=== PATIENT | male | born 1955 | race Caucasian/White ===

== ENCOUNTER 2018-07-14 11:30 | Emergency (ER) | payer SELFPAY ==
[~2018-07-14] VITALS: Ht 188 cm; Wt 119.7 kg
[~2018-07-14 11:30] MED LIST: ASPI-875 PO; BUDE6HFA IH; CEFA-4 PO; CRAN450T9 PO; HCT25T PO; HYDR-34 PO; MELO-195 PO; OMEG-12 PO; ORPH100T PO; PRCD5U PO; TADA2.5T PO
--- OUTSIDE RECORDS SUMMARY | 2018-07-14 11:35 | XMS REPORT | Continuity of Care Document ---
Author Author [facility] Organization [facility] Address Unknown Phone Unavailable Care Team Providers Care Head Of Merchandise Buying Name Role Phone PENNIE CARTWRIGHT MD PP Insurance Providers Payer Name Policy Number Subscriber Name Relationship Self Pay Mao Wheatley Howie 01 Self / Same As Patient Advance Directives Directive Response Recorded Date Advance Directives N 09/08/12 12:16pm Health Care Power of Scudding Inspector N 09/08/12 12:16pm Organ Donor N 09/08/12 12:16pm Problems No Known Problems or Medical conditions. Family History History Response Recorded Date/Time Hx Family Cancer Y STOMACH CANCER (GRANDMOTHER) 01/26/12 6:28pm Hx Family Breast Cancer Y SISTER 01/26/12 6:28pm Hx Family Hypertension Y MOTHER 01/26/12 6:28pm Social History History Response Recorded Date/Time Alcohol Use Rarely Uses 09/08/12 12:16pm Recreational Drug Use N 09/08/12 12:16pm Allergies, Adverse Reactions, Alerts Allergen Type Severity Reaction Last Updated Penicillins Allergy Unknown 12/01/10 Medications Medication Dose Units Route Sig Qty Days Promethazine HCl/Codeine (Phenergan W/Codeine Syrup) 0 PO Q4H 120 Aspirin (Heard Aspirin) 81 Mg PO Cranberry Fruit (Cranberry) 400 Mg PO Tadalafil (Cialis) 20 Mg PO PRN Tadalafil (Cialis) 5 Mg PO Meloxicam 1 Each PO DAILY Budesonide/Formoterol Fumarate (Symbicort 160-4.5 Mcg Inhaler) 2 Puff IH BID Orphenadrine Citrate (Norflex) 100 Mg PO BID Hydrochlorothiazide 1 Each PO DAILY Cefadroxil Hydrate 1 Each PO BID Acetaminophen/Hydrocodone Bitart (Hydrocodone-Apap 7.5-325 Mg Tb) 1 Each PO Q6HR PRN [place]-3/Dha/Epa/Fish Oil (Fish Oil 1,000 Mg Ec Softgel) 2 Each PO Response Recorded Date/Time Status not known Unknown Results Test Date Result Interp. Ref. Range Alanine Aminotransferase (ALT/SGPT) January 27, 2012 7:50am 30 U/L N 30-65 Albumin January 27, 2012 7:50am 3.2 G/DL L 3.4-5.0 Alkaline Phosphatase January 27, 2012 7:50am 81 U/L N 50-136 Aspartate Amino Transf (AST/SGOT) January 27, 2012 7:50am 16 U/L N 15-37 BUN/Creatinine Ratio January 27, 2012 7:50am 11 - Blood Urea Nitrogen January 27, 2012 7:50am 12 MG/DL N 7-18 Calcium Level January 27, 2012 7:50am 8.2 MG/DL L 8.5-10.1 Carbon Dioxide Level January 27, 2012 7:50am 28 MMOL/L N 21-32 Chloride Level January 27, 2012 7:50am 104 MMOL/L N 101-110 Creatinine January 27, 2012 7:50am 1.1 MG/DL N 0.6-1.3 Glucose Level January 27, 2012 7:50am 115 MG/DL H 74-106 Hematocrit January 27, 2012 7:50am 44 % N 40-54 Hemoglobin January 27, 2012 7:50am 15.2 G/DL N 13.3-17.7 Mean Corpuscular Hemoglobin January 27, 2012 7:50am 33 PG N 25-34 Mean Corpuscular Hemoglobin Concent January 27, 2012 7:50am 35 G/DL N 32-36 Mean Corpuscular Volume January 27, 2012 7:50am 94 FL N 80-99 Mean Platelet Volume January 27, 2012 7:50am 9.9 FL N 7.4-10.4 Platelet Count January 27, 2012 7:50am 137 10^3/uL N 130-400 Potassium Level January 27, 2012 7:50am 3.6 MMOL/L N 3.6-5.0 Red Blood Count January 27, 2012 7:50am 4.63 10^6/uL N 4.35-5.85 Red Cell Distribution Width January 27, 2012 7:50am 12.8 % N 10.0-14.5 Sodium Level January 27, 2012 7:50am 137 MMOL/L N 135-145 Thyroid Stimulating Hormone (TSH) January 26, 2012 12:53pm 1.28 UIU/ML N 0.34-5.60 Total Bilirubin January 27, 2012 7:50am 0.7 MG/DL N 0.0-1.0 Total Protein January 27, 2012 7:50am 6.5 G/DL N 6.4-8.2 White Blood Count January 27, 2012 7:50am 6.9 10^3/uL N 4.3-11.0 Lab Scanned Report October 31, 2010 10:34am LAB Reports [id number] - Estimat Glomerular Filtration Rate January 26, 2012 12:53pm > 60 - Procedures Procedure Code Date LESION REMOVE COLONOSCOPY 71767 12/19/10 UPPER GI ENDOSCOPY BIOPSY 32544 12/19/10 Encounters Encounter Location Date/Time Registered Emergency Room [facility] 09/08/12 12:13pm Departed Emergency Room [facility] 02/18/12 11:05am [facility]charged [facility] 01/26/12 5:00pm
--- OUTSIDE RECORDS SUMMARY | 2018-07-14 11:35 | XMS REPORT | Continuity of Care Document ---
Author Organization Unknown Address Unknown Allergies Active Description Code Type Severity Reaction Onset Reported/Identified Relationship to Patient Clinical Status Yes Penicillins [id number] Drug Allergy Unknown N/A 12/01/2010 Medications There is no data. Problems Date Dx Coded Attending Type Code Diagnosis Diagnosed By 01/30/2014 Ot 599.70 01/30/2014 Ot 564.00 01/30/2014 Ot 599.70 01/30/2014 Ot V81.5 Procedures There is no data. Results There is no data. Encounters ACCT No. Visit Date/Time Discharge Status Pt. Type Provider Facility Loc./Unit Complaint [id number] 09/18/2012 11:31:00 09/18/2012 23:59:59 CLS Outpatient [id number] 09/08/2012 12:13:00 09/08/2012 14:33:00 DIS Emergency [id number] 07/14/2018 11:31:00 ACT Emergency NATALIYA CONDON, KATHIA Ribeiro [facility] ER HIGH BP [id number] 07/02/2009 14:49:00 Document Registration [id number] 06/29/2009 08:56:00 Document Registration
[2018-07-14] MEDS ORDERED: CLOP75TA69 PO (11:59)
[2018-07-14] MEDS ORDERED: METF-397 PO (11:59)
--- NOTE | 2018-07-14 12:02 | ED Neurological Problem ---
General Chief Complaint: Cardiac/General Problems Stated Complaint: HIGH BP Nursing Triage Note: PT PRESENTS TO ED WITH COMPLAINTS OF HYPERTENSION AND GENERALIZED "FOGGY" FEELING SINCE 0800 THIS AM WHEN HE GOT TO WORK. Nursing Sepsis Screen: No Definite Risk Source: patient, spouse Exam Limitations: no limitations History of Present Illness Date Seen by Provider: July 14, 2018 Time Seen by Provider: 11:45 Initial Comments Patient presents to ER by private conveyance with chief complaint of being at work around 8:00 this morning he started to feel little off balance and had to hold onto the wall as he was walking. This lasted for less than an hour. He says that these symptoms were reminiscent of when he had a TIA with right-sided weakness and prominent dysphasia and right facial droop. At the time he was switched from aspirin to Plavix and his symptoms completely resolved without residual effect. The patient was worked up thoroughly at [place], [place]. He denies a history of heart disease and he did have ultrasounds of his carotid and heart. He denies a history of atrial fibrillation and is not on blood thinners. While at work he checked his blood sugar and it was 140 and his blood pressure was elevated about 150 systolic. He uses hydrochlorothiazide and his blood pressures usually normal. No chest pain nausea weakness or syncope but he did feel very odd like he was going through a tunnel. Sensation has mostly passe d at this point. He still feels a little off balance. He did say he took his medicines today and about 6 out of 7 days a week. Borderline diabetic on metformin and smokes 1 pack cigarettes per day. Allergies and Home Medications Allergies Coded Allergies: Penicillins (Verified Allergy, Unknown, 12/01/10) Home Medications Budesonide/Formoterol Fumarate 10.2 Gm Hfa.aer.ad, 2 PUFF IH BID, (Reported) Cefadroxil Hydrate 500 Mg Capsule, 1 EACH PO BID, (Reported) Clopidogrel Bisulfate 75 Mg Tablet, 75 MG PO DAILY, (Reported) Hydrochlorothiazide 25 Mg Tablet, 1 EACH PO DAILY, (Reported) Hydrocodone Bit/Acetaminophen 1 Each Tablet, 1 EACH PO Q6HR PRN, (Reported) Meloxicam 15 Mg Tablet, 1 EACH PO DAILY, (Reported) Orphenadrine Citrate 100 Mg Tablet.sa, 100 MG PO BID, (Reported) Promethazine/Codeine 5 Ml Syrp, 0 PO Q4H 5 - 10 ML Prescribed by: JEANNIE VALENTE on 02/18/12 1310 Tadalafil 2.5 Mg Tablet, 20 MG PO PRN, (Reported) Patient Home Medication List Home Medication List Reviewed: Yes Review of Systems Review of Systems Constitutional: No chills, No diaphoresis Eyes: Denies Blindness, Denies Blurred Vision, Denies Drainage Ears, Nose, Mouth, Throat: denies ear pain, denies ear discharge Respiratory: No cough, No hemoptysis Cardiovascular: No chest pain, No palpitations Gastrointestinal: No abdominal pain, No constipation, No diarrhea, No nausea Genitourinary: No discharge, No dysuria Past Xwznusa-Tnhjmu-Vrannj Hx Patient Social History Alcohol Use: Rarely Uses Recreational Drug Use: No Smoking Status: Current Everyday Smoker Type Used: Cigarettes Recent Foreign Travel: No Contact w/Someone Who Travel: No Recent Infectious Disease Expo: No Recent Hopitalizations: Yes (1992 RT LEG FX) Physical Abuse: No Sexual Abuse: No Mistreated: No Fear: No Seasonal Allergies Seasonal Allergies: No Past Medical History Surgeries: Yes (BACK-LUMBAR, R ANKLE, GANGLION CYST) Appendectomy Respiratory: Yes (POST-OP, 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 oz. 119.921748lb; BMI Method:Stated General Appearance: WD/WN, no apparent distress HEENT: PERRL/EOMI, normal ENT inspection, TMs normal, pharynx normal Neck: non-tender, full range of motion, supple, normal inspection Respiratory: chest non-tender, lungs clear, normal breath sounds, no respiratory distress, no accessory muscle use Cardiovascular: normal peripheral pulses, regular rate, rhythm, no edema Peripheral Pulses: 2+ Radial Pulses (R), 2+ Radial Pulses (L) Neurologic/Psychiatric: alert, normal mood/affect, oriented x 3 Crainal Nerves: normal hearing, normal speech, PERRL Motor/Sensory: no motor deficit, no sensory deficit, no pronator drift Skin: normal color, warm/dry Stroke Onset of Symptoms Date of Onset of Symptoms: July 14, 2018 Time of Symptom Onset: 08:00 Onset of Symptoms: Yes NIH Stroke Scale Assessment Select: Initial Level of Consciousness: 0=Alert (0), Level of Consciousness- Questions: 0=Answers both month/age (0), LOC Commands: 0=Performs both tasks (0), Gaze: Normal (0), Visual [place]: 0=No visual loss (0), Facial Movement (Facial Paresis): 0=Normal symmetrical mnt (0), Motor Function-Arms Right: 0=No drift (0), Motor Function-Arms Left: 0=No drift (0), Motor Function-Legs Right: 0=No drift (0), Motor Function-Legs Left: 0=No drift (0), Limb Ataxia: 0=Absent (0), Sensory: 0=Normal:no loss (0), Best Language: 0=No aphasia (0), Dysarthria: 0=Normal (0), Extinction & Inattention: 0=No abnormality (0), Total: 0 Stroke Thrombolytic Exclusion Age 18 or Over: Yes Acute intenal hemorrhage: No History of CVA: No Uncontrolled Coagulation Defec: No Intracranial Hemorrhage: No Severe Hypertension: No GI or Bleed: No Subarachnoid Hemorrhage: No Intracranial Neoplasm/Aneurysm: No Oral Anticoagulants: No Surgery or Trauma: No Puncture of Non-Compressible V: No Recent CPR: No Diabetic Hemorrhagic Retinopat: No Organ Biopsy: No Recent Obstetric Delivery: No Glucose: No (140) Significant Hepatic Dysfunctio: No NIH Stoke Scale >22: No Bacterial Endocarditis: No Pericarditis: No Improving Symptoms: Yes Platelets: No IV - TPa Received IV - TPa Procedure Performed?: No (outside the window, symptoms are improving.) Progress/Results/Core Measures Results/Orders Lab Results Laboratory Tests Test 07/14/18 11:40 Range/Units White Blood Count 8.8 4.3-11.0 10^3/uL Red Blood Count 4.86 4.35-5.85 10^6/uL Hemoglobin 16.2 13.3-17.7 G/DL Hematocrit 46 40-54 % Mean Corpuscular Volume 94 80-99 FL Mean Corpuscular Hemoglobin 33 25-34 PG Mean Corpuscular Hemoglobin Concent 35 32-36 G/DL Red Cell Distribution Width 12.8 10.0-14.5 % Platelet Count 122 L 130-400 10^3/uL Mean Platelet Volume 11.4 H 7.4-10.4 FL Neutrophils (%) (Auto) 66 42-75 % Lymphocytes (%) (Auto) 22 12-44 % Monocytes (%) (Auto) 7 0-12 % Eosinophils (%) (Auto) 5 0-10 % Basophils (%) (Auto) 1 0-10 % Neutrophils # (Auto) 5.8 1.8-7.8 X 10^3 Lymphocytes # (Auto) 2.0 1.0-4.0 X 10^3 Monocytes # (Auto) 0.6 0.0-1.0 X 10^3 Eosinophils # (Auto) 0.4 H 0.0-0.3 10^3/uL Basophils # (Auto) 0.1 0.0-0.1 10^3/uL Prothrombin Time 12.9 12.2-14.7 SEC INR Comment 0.9 0.8-1.4 Activated Partial Thromboplast Time 27 24-35 SEC D-Dimer 0.66 H 0.00-0.49 UG/ML Sodium Level 140 135-145 MMOL/L Potassium Level 4.0 3.6-5.0 MMOL/L Chloride Level 104 98-107 MMOL/L Carbon Dioxide Level 21 21-32 MMOL/L Anion Gap 15 H 5-14 MMOL/L Blood Urea Nitrogen 17 7-18 MG/DL Creatinine 1.07 0.60-1.30 MG/DL Estimat Glomerular Filtration Rate > 60 BUN/Creatinine Ratio 16 Glucose Level 145 H 70-105 MG/DL Calcium Level 9.3 8.5-10.1 MG/DL Corrected Calcium 9.3 8.5-10.1 MG/DL Total Bilirubin 1.2 H 0.1-1.0 MG/DL Aspartate Amino Transf (AST/SGOT) 18 5-34 U/L Alanine Aminotransferase (ALT/SGPT) 16 0-55 U/L Alkaline Phosphatase 78 40-136 U/L Troponin I < 0.028 <0.028 NG/ML Total Protein 7.1 6.4-8.2 GM/DL Albumin 4.0 3.2-4.5 GM/DL My Orders Orders - KATHIA AN Cbc With Automated Diff (07/14/18 11:54) Protime With Inr (07/14/18 11:54) Partial Thromboplastin Time (07/14/18 11:54) Comprehensive Metabolic Panel (07/14/18 11:54) Fibrin Degradation Products (07/14/18 11:54) Troponin I (07/14/18 11:54) Ua Culture If Indicated (07/14/18 11:54) Chest 1 View, Ap/Pa Only (07/14/18 11:54) Ekg Tracing (07/14/18 11:54) Nothing By Mouth (07/14/18 Dinner) Ed Iv/Invasive Line Start (07/14/18 11:54) Vital Signs Stroke Patient Q15M (07/14/18 11:54) Ct Head Wo-R/O Stroke (07/14/18 11:54) O2 (07/14/18 11:54) Monitor-Rhythm Ecg Trace Only (07/14/18 11:54) Dysphagia Screening Tool (07/14/18 11:54) Lipid Panel (07/15/18 06:00) Vital Signs/I&O 07/14/18 11:46 Temp 98.4 Pulse 72 Resp 16 B/P (MAP) 154/95 (114) Pulse Ox 94 Blood Pressure Mean: 114 Progress Progress Note : Time: 12:02 Progress Note NIH is 0. Patient's symptoms are similar to his previous TIA. Would still get a CT, EKG. Noticed that his pulse does drop a beat every third to fourth beat but no murmur heard on auscultation of the heart. No other systemic symptoms. Based on his historical blood sugar at work will just get a repeat glucose off the CMP. Symptoms have pretty much resolved at this point. We will discussed an outpatient workup with primary care. Since [facility] [place] [facility] may have more of that information to go off of. There is no further inpatient workup necessary at this time. We've given him strict return precautions. Initial ECG Impression Date: July 14, 2018 Initial ECG Impression Time: 12:07 Initial ECG Rate: 65 Initial ECG Rhythm: Normal Sinus Initial ECG Intervals: TX (164) Initial ECG Impression: Normal, Nonspecific Changes Initial ECG Comparisson: Unchanged Comment PACs. Right bundle branch block. Sinus rhythm no ST elevation or depression significantly. Diagnostic Imaging Diagonstic Imaging: Xray Plain Films/CT/US/NM/MRI: chest (one view.) Comments [facility] [place] [place] NAME: ANTONIO WHEATLEY [facility] REC#: [id number] PT STATUS: REG ER : 1955 PHYSICIAN: KATHIA AN MD ADMIT DATE: 07/14/18/ER Draft Date of Exam:07/14/18 CHEST 1 VIEW, AP/PA ONLY INDICATION: Hypertension, abnormal generalized foggy feeling since earlier in the day.. TECHNIQUE: Single view chest 12:11 PM. CORRELATION STUDY: 09/08/2012 FINDINGS: Heart size enlarged. The mediastinum is prominent somewhat accentuated by patient positioning. Vasculature also appears slightly prominent. Lung [place]ch[place] are somewhat hyperinflated but overall appear generally clear. Increased density over the left lateral superior chest is likely summation shadows. IMPRESSION: 1. Cardiac enlargement with borderline vasculature. Mediastinum also appears to be somewhat more prominent from prior study. While this may be owing to technique, however increasing size of the thoracic aorta and or underlying adenopathy/mass is not excluded. Short-term followup two-view chest imaging and/or CT imaging of the chest recommended. Dictated on workstation # [id number] Dict: 07/14/18 1219 Trans: 07/14/18 1227 PATY [id number] Interpreted by: MONTANA MOLINA DO Electronically signed by: Reviewed: Reviewed by Me Diagonstic Imaging: CT (noncontrast) Plain Films/CT/US/NM/MRI: head Comments [facility] [place], [place] NAME: ANTONIO WHEATLEY [facility] REC#: [id number] PT STATUS: REG ER : 1955 PHYSICIAN: KATHIA AN MD ADMIT DATE: 07/14/18/ER Draft Date of Exam:07/14/18 CT HEAD WO-R/O STROKE PROCEDURE: CT head wo r/o stroke. TECHNIQUE: Multiple contiguous axial images were obtained through the brain without the use of intravenous contrast. Auto Exposure Controls were utilized during the CT exam to meet ALARA standards for radiation dose reduction. INDICATION: Hypertension with generalized foggy feeling. Evaluate for stroke. COMPARISON: Comparison is made with a prior study from September 08, 2012. FINDINGS: Mild age-appropriate global volume loss is present. There are no CT findings of acute hemorrhage. There is no mass effect or shift. There is no hydrocephalus. There is a stable low-density focus along the right anterior aspect of the insula, unchanged from the prior examination and likely reflecting a prominent perivascular space. There is no territorial loss of betts-white differentiation evident or abnormal low density within the basal ganglia or rachel. There is no abnormal extra-axial fluid collection. The basilar cisterns are patent. The mastoids are clear. There is a mucus retention cyst in both of the maxillary sinuses and moderate scattered mucosal thickening throughout the ethmoids. Orbital contents are unremarkable. There is no acute calvarial abnormality. IMPRESSION: 1. No CT evidence of interval change compared to the prior examination. No acute intracranial abnormality demonstrated. There are no findings of hemorrhage, mass effect, hydrocephalus, or evidence of territorial loss of betts-white differentiation. Dictated on workstation # [id number] Dict: 07/14/18 1229 Trans: 07/14/18 1236 [id number] Interpreted by: FRANK OCONNELL MD Electronically signed by: Reviewed: Reviewed by Me Departure Impression Primary Impression: Balance problem Additional Impression: General ill feeling Disposition: 01 HOME, SELF-CARE Condition: Stable Departure-Patient Inst. Decision time for Depature: 13:29 Referrals: PENNIE CARTWRIGHT MD (PCP/Family) Primary Care Physician Patient Instructions: Transient Ischemic Attack (DC) Add. Discharge Instructions: I don't know if your symptoms represent another transient ischemic attack or mini stroke however if you begin to experience symptoms of slurring her speech, facial droop, weakness or other worrisome symptoms then we would encourage you to come back to the nearest ER for reevaluation. Follow-up with Dr. Cartwright, primary care by calling his office tomorrow and requesting an appointment for further workup to discover what might be occurring. All discharge instructions reviewed with patient and/or family. Voiced understanding. Copy Copies To 1: PENNIE CARTWRIGHT MD, TITUS J July 14, 2018 12:02
[2018-07-14 12:05] LABS: BASOPHILS # (AUTO) 0.1 10^3/uL (0.0-0.1); BASOPHILS % (AUTO) 1 % (0-10); EOSINOPHILS # (AUTO) 0.4 10^3/uL (0.0-0.3); EOSINOPHILS % (AUTO) 5 % (0-10); HEMATOCRIT 46 % (40-54); HEMOGLOBIN 16.2 G/DL (13.3-17.7); LYMPHOCYTES % (AUTO) 22 % (12-44); MEAN CORPUSCULAR HEMOGLOBIN 33 PG (25-34); MEAN CORPUSCULAR HGB CONC 35 G/DL (32-36); MEAN CORPUSCULAR VOLUME 94 FL (80-99); MEAN PLATELET VOLUME 11.4 FL (7.4-10.4); MONOCYTES # (AUTO) 0.6 X 10^3 (0.0-1.0); MONOCYTES % (AUTO) 7 % (0-12); NEUTROPHILS # (AUTO) 5.8 X 10^3 (1.8-7.8); NEUTROPHILS % (AUTO) 66 % (42-75); PLATELET COUNT 122 10^3/uL (130-400); RED CELL DISTRIBUTION WIDTH 12.8 % (10.0-14.5); WHITE BLOOD COUNT 8.8 10^3/uL (4.3-11.0)
[2018-07-14 12:10] LABS: FIBRIN DEGRADATION PRODUCTS 0.66 UG/ML (0.00-0.49); INR 0.9 (0.8-1.4); PROTHROMBIN TIME PATIENT 12.9 SEC (12.2-14.7)
[2018-07-14 12:16] LABS: ALANINE AMINOTRANSFERASE 16 U/L (0-55); ALKALINE PHOSPHATASE 78 U/L (40-136); BILIRUBIN,TOTAL 1.2 MG/DL (0.1-1.0); BUN/CREATININE RATIO 16; CALCIUM 9.3 MG/DL (8.5-10.1); CARBON DIOXIDE 21 MMOL/L (21-32); CHLORIDE 104 MMOL/L (98-107); CREATININE SERUM 1.07 MG/DL (0.60-1.30); GFR ESTIMATED > 60; GLUCOSE 145 MG/DL (70-105); SODIUM 140 MMOL/L (135-145); TOTAL PROTEIN 7.1 GM/DL (6.4-8.2)
--- NOTE | 2018-07-14 12:28 | Diagnostic Imaging Report ---
INDICATION: Hypertension, abnormal generalized foggy feeling since earlier in the day.. TECHNIQUE: Single view chest 12:11 PM. CORRELATION STUDY: 09/08/2012 FINDINGS: Heart size enlarged. The mediastinum is prominent somewhat accentuated by patient positioning. Vasculature also appears slightly prominent. Lung serna are somewhat hyperinflated but overall appear generally clear. Increased density over the left lateral superior chest is likely summation shadows. IMPRESSION: 1. Cardiac enlargement with borderline vasculature. Mediastinum also appears to be somewhat more prominent from prior study. While this may be owing to technique, however increasing size of the thoracic aorta and or underlying adenopathy/mass is not excluded. Short-term followup two-view chest imaging and/or CT imaging of the chest recommended. Dictated by: Dictated on workstation # [id number]
--- NOTE | 2018-07-14 12:36 | Diagnostic Imaging Report ---
PROCEDURE: CT head wo r/o stroke. TECHNIQUE: Multiple contiguous axial images were obtained through the brain without the use of intravenous contrast. Auto Exposure Controls were utilized during the CT exam to meet ALARA standards for radiation dose reduction. INDICATION: Hypertension with generalized foggy feeling. Evaluate for stroke. COMPARISON: Comparison is made with a prior study from September 08, 2012. FINDINGS: Mild age-appropriate global volume loss is present. There are no CT findings of acute hemorrhage. There is no mass effect or shift. There is no hydrocephalus. There is a stable low-density focus along the right anterior aspect of the insula, unchanged from the prior examination and likely reflecting a prominent perivascular space. There is no territorial loss of betts-white differentiation evident or abnormal low density within the basal ganglia or rachel. There is no abnormal extra-axial fluid collection. The basilar cisterns are patent. The mastoids are clear. There is a mucus retention cyst in both of the maxillary sinuses and moderate scattered mucosal thickening throughout the ethmoids. Orbital contents are unremarkable. There is no acute calvarial abnormality. IMPRESSION: 1. No CT evidence of interval change compared to the prior examination. No acute intracranial abnormality demonstrated. There are no findings of hemorrhage, mass effect, hydrocephalus, or evidence of territorial loss of betts-white differentiation. Dictated by: Dictated on workstation # [id number]
[2018-07-14 13:41] VITALS: BP 126/79
== END 2018-07-14 13:41 | disposition home or self-care (01) ==
LOC: EDUNIT# 11:30 → ER 11:31
DX: I10 Essential (primary) hypertension (principal); R26.89 Other abnormalities of gait and mobility; E11.9 Type 2 diabetes mellitus without complications; F17.210 Nicotine dependence, cigarettes, uncomplicated; Z86.73 Personal history of transient ischemic attack (TIA), and cerebral infarction without residual deficits; Z87.440 Personal history of urinary (tract) infections; Z87.442 Personal history of urinary calculi; Z88.0 Allergy status to penicillin; Z79.02 Long term (current) use of antithrombotics/antiplatelets; Z90.49 Acquired absence of other specified parts of digestive tract; Z86.711 Personal history of pulmonary embolism
CPT/HCPCS: 36415; 70450; 71045; 80053; 84484; 85025; 85379; 85610; 85730; 93041

== ENCOUNTER → 2018-09-11 | Outpatient (CLI) | payer SELFPAY ==
[~2018-09-11] MED LIST changes: +CLOP75TA69 PO; +METF-397 PO
--- NOTE | 2018-09-11 14:02 | Diagnostic Imaging Report ---
PROCEDURE: US right lower extremity venous. TECHNIQUE: Multiple real-time grayscale images were obtained over the right lower extremity in various projections. Additional spectral analysis and color Doppler duplex images were also obtained. INDICATION: Right lower extremity swelling. FINDINGS: There is no evidence of right lower extremity DVT. The right lower extremity deep venous system shows normal compressibility with normal response to augmentation and Valsalva. No fluid collection or mass is seen. IMPRESSION: No evidence of right lower extremity DVT. Dictated by: Dictated on workstation # [id number]
== END ==
LOC: RAD 13:18
PROVIDERS: ATTEND Nurse Practitioner Family
DX: M79.89 Other specified soft tissue disorders (principal)

== ENCOUNTER → 2018-11-19 | Outpatient (CLI) | payer MEDICARE ==
[~2018-11-19] MED LIST changes: +CATHETER FLUSH 10 ML SYR IV PRN; +REGADENOSON 0.4 MG/5 ML SYR (LEXISCAN) IV ONE
[2018-11-19 13:15] VITALS: BP 163/84
[2018-11-19 13:18] VITALS: BP 142/86
--- NOTE | 2018-11-20 18:15 | STRESS TEST ---
DATE OF SERVICE: 11/19/2018 RESTING AND POST REGADENOSON TECHNETIUM-99M TETROFOSMIN SPECT CT IMAGING ORDERING PHYSICIAN: Onelia Rosado MD, IMELDA, FACP, FACC. OTHER PHYSICIAN: Robert Medina MD CLINICAL DIAGNOSIS: Right bundle branch block, tobacco use, hyperlipidemia, hypertension, and diabetes. Baseline images were carried out after injection of 10.67 mCi of technetium-99m Tetrofosmin. This was followed by 0.4 mg regadenoson and 30.4 mCi of technetium-99m Tetrofosmin for stress imaging. The electrocardiogram showed sinus rhythm with right bundle branch block at baseline. The electrocardiogram did not change significantly with the regadenoson infusion. The patient noted shortness of breath following regadenoson which resolved in a few minutes. Review of images at rest and following stress indicates a predominantly fixed basal inferior perfusion defect. Gated images show basal inferior hypokinesis to akinesis. Left ventricular ejection fraction is calculated to be 48%. Left ventricular end diastolic volume is 135 mL. TID is absent (1.02). CONCLUSIONS: 1. This study is indicative of a basal inferior wall myocardial infarction with a small amount of keli-infarct ischemia. 2. Basal inferior hypokinesis to akinesis. 3. Left ventricular ejection fraction is calculated to be 48%. 4. Mild to moderate cardiomegaly. Job ID: [id number] DocumentID: [id number] Dictated Date: 11/20/2018 13:02:30 Economics Consultant Date: 11/20/2018 18:14:37 Dictated By: ONELIA ROSADO MD, IMELDA, FACP, FACC,
== END ==
LOC: CARD 11:41
PROVIDERS: ATTEND Internal Medicine Cardiovascular Disease
DX: I51.7 Cardiomegaly (principal); I25.2 Old myocardial infarction; E11.9 Type 2 diabetes mellitus without complications; I10 Essential (primary) hypertension; E78.5 Hyperlipidemia, unspecified; I45.10 Unspecified right bundle-branch block; Z72.0 Tobacco use; Z86.79 Personal history of other diseases of the circulatory system
CPT/HCPCS: 78452; 93017

== ENCOUNTER 2018-12-03 10:08 | Day surgery (SDC) | payer MEDICARE ==
[2018-12-03] VITALS (10 sets, daily range): BP systolic 111–144; BP diastolic 66–84
[~2018-12-03] VITALS: Ht 188 cm; Wt 119.8 kg
[~2018-12-03 10:08] MED LIST changes: -CATHETER FLUSH 10 ML SYR IV PRN; -REGADENOSON 0.4 MG/5 ML SYR (LEXISCAN) IV ONE
[2018-12-03] MEDS ORDERED: LIDOCAINE 1% INJ 20 ML 20 ML VIAL ONE (10:14)
[2018-12-03] MEDS ORDERED: HEParin (CATH LAB) 2,000 ML IV ONE (10:14)
[2018-12-03] MEDS ORDERED: NS IV 1000 ML 1,000 ML ONE (10:14)
[2018-12-03] MEDS ORDERED: NS IV 1000 ML 1,000 ML IV SCH ×2 (10:15→12:53)
[2018-12-03 10:33] LABS: HEMOGLOBIN 16.8 G/DL (13.3-17.7); MEAN PLATELET VOLUME 9.9 FL (7.4-10.4); RED CELL DISTRIBUTION WIDTH 12.6 % (10.0-14.5); WHITE BLOOD COUNT 7.8 10^3/uL (4.3-11.0)
[2018-12-03 10:48] LABS: INR 0.9 (0.8-1.4); PROTHROMBIN TIME PATIENT 12.8 SEC (12.2-14.7)
[2018-12-03 10:56] LABS: ALANINE AMINOTRANSFERASE 21 U/L (0-55); ALBUMIN 4.2 GM/DL (3.2-4.5); ALKALINE PHOSPHATASE 84 U/L (40-136); BILIRUBIN,TOTAL 1.3 MG/DL (0.1-1.0); BUN/CREATININE RATIO 17; CALCIUM 9.5 MG/DL (8.5-10.1); CARBON DIOXIDE 26 MMOL/L (21-32); CHLORIDE 102 MMOL/L (98-107); CHOLESTEROL 143 MG/DL (< 200); CREATININE SERUM 0.98 MG/DL (0.60-1.30); GFR ESTIMATED > 60; GLUCOSE 110 MG/DL (70-105); HDL CHOLESTEROL 38 MG/DL (40-60); POTASSIUM 3.3 MMOL/L (3.6-5.0); SODIUM 141 MMOL/L (135-145); TOTAL PROTEIN 7.7 GM/DL (6.4-8.2); TRIGLYCERIDES 117 MG/DL (<150); VLDL CHOLESTEROL 23 MG/DL (5-40)
[2018-12-03] MEDS ORDERED: HYDR50TA3 PO (11:16)
[2018-12-03] MEDS ORDERED: HYDR-34 PO (11:16)
[2018-12-03] MEDS ORDERED: MELO15TA39 PO (11:16)
[2018-12-03] MEDS ORDERED: METF-478 PO (11:17)
[2018-12-03] MEDS ORDERED: VERA180T11 PO (11:17)
[2018-12-03] MEDS ORDERED: ATOR40TA PO (11:17)
[2018-12-03] MEDS ORDERED: ASPI-586 PO (11:17)
[2018-12-03] MEDS ORDERED: CYCL10TA9 PO (11:17)
[2018-12-03] MEDS ORDERED: IBUP-2055 PO (11:18)
--- NOTE | 2018-12-03 11:19 | NUR ---
SPOKE WITH PT (HE HAD HIS BOTTLES) WELL CALLING [facility] TO COMPLETE THE MED REC. PT WAS ABLE TO TELL ME HOW/WHEN HE TAKES ALL HIS MEDICATIONS. THE FOLLOWING DATES ARE FROM HIS BOTTLES; 08-16-2018 CYCLOBENZAPRINE# 60 09-30-2018 HCTZ #90/90DS 10-25-2018 ATORVASTATIN #60/60DS 10-25-2018 METFORMIN #30/30DS 11-04-2018 HYDROCODONE #60 11-04-2018 VERAPAMIL #30/30DS 11-13-2018 MELOXICAM #60 12-01-2018 CLOPIDOGREL #30/30DS OTC MEDS: ASPIRIN 81M DAILY IBUPROFEN 200M TABS Q 6 H PRN
[2018-12-03] MEDS ORDERED: MIDAZOLAM 5 MG/5 ML (VERSED) VIAL ONE (11:52)
[2018-12-03] MEDS ORDERED: fentaNYL INJECTION 100 MCG/2 ML AMP ONE (11:52)
[2018-12-03] MEDS ORDERED: diphenhydrAMINE 50 MG/ML INJ (BENADRYL) ONE (11:52)
--- NOTE | 2018-12-03 11:58 | Cardiac Procedure Note-CS/ASA ---
Pre-Procedure Note Pre-Op Procedure Note H&P Reviewed The H&P was reviewed, patient examined and no changes noted. Date H&P Reviewed: Dec 03, 2018 Time H&P Reviewed: 11:58 Conscious Sedation Pre-Proced Time 11:58 ASA Score 3 For ASA 3 and 4: Consider anesthesia and medical clearance. Also, for patients with a history of failed moderate sedation consider anesthesia. Airway Lungs Heart ASA score ASA 1: a normal healthy patient ASA 2: a patient with a mild systemic disease (mid diabetes, controlled hypertension, obesity ASA 3: a patient with a severe systemic disease that limits activity (angina, COPD, prior Myocardial infarction) ASA 4: a patient with an incapacitating disease that is a constant threat to life (CHF, renal failure) ASA 5: a moribund patient not expected to survive 24 hrs. (ruptured aneurysm) ASA 6: a declared brain- patient whose organs are being harvested. For emergent operations, add the letter E after the classification Mallampati Classification Grade 2 Sedation Plan Analgesia, Amnesia, Plan communicated to team members, Discussed options with patient/fam, Discussed risks with patient/fam The patient is an appropriate candidate to undergo the planned procedure, sedation, and anesthesia. The patient immediately re-assessed prior to indication. ZACHERY REIS MD FACP FAC CCDS Dec 03, 2018 11:58
--- NOTE | 2018-12-03 12:57 | Discharge Inst-Cardiology ---
Discharge Inst-Cardiac Discharge Medications Continued Medications: Aspirin (Aspir 81) 81 Mg Tablet.dr 81 MG PO DAILY, TAB Atorvastatin Calcium (Lipitor) 40 Mg Tablet 40 MG PO DAILY, TAB Clopidogrel Bisulfate (Plavix) 75 Mg Tablet 75 MG PO DAILY, TAB Cyclobenzaprine HCl (Cyclobenzaprine HCl) 10 Mg Tablet 10 MG PO BID PRN for MUSCLE SPASMS, TAB Hydrocodone Bit/Acetaminophen (Lortab 7.5 Mg Tablet) 1 Ea Tablet 1 EA PO Q8H PRN for PAIN-MODERATE, TAB Meloxicam (Meloxicam) 15 Mg Tablet 15 MG PO DAILY, TAB Verapamil HCl (Verapamil ER) 180 Mg Tablet.er 180 MG PO DAILY, TAB Discontinued Medications: Hydrochlorothiazide (Hydrochlorothiazide) 50 Mg Tablet 50 MG PO DAILY, TAB Ibuprofen (Ibuprofen) 200 Mg Tablet 400 MG PO Q6H PRN for PAIN-MILD, TAB Metformin HCl (Metformin HCl ER) 500 Mg Tab.er.24 500 MG PO DAILY, TAB Patient Instructions Patient Instructions: Hold METFORMIN until the morning of 12/06/18; then resume previous home dose Orders-Post D/C & Referrals Pneu Vac Indicated: Yes ZACHERY REIS MD FACP FAC CCDS Dec 03, 2018 12:57
--- NOTE | 2018-12-03 12:58 | Discharge Inst-Post CATH ---
Discharge Inst-CATH/EP Post Cardiac Cath/EP D/C Inst Follow Up/Plan F/u with Dr Rosado in 2 weeks ACTIVITY * Go Home directly and rest. * Limit activity of the leg (or wrist if it was used) for 7 days including aerobics, swimming, jogging, bicycling, etc. * Restrict stair-climbing for 7 days if possible, if not, climb up with your n on-cath leg, then bring together on the same step. * Avoid lifting, pushing, pulling or excessive movement of the affected ex tremity for 7 days. * Customary sexual activity may be resumed after 2 days-use caution not to use a position that strains or causes pain to the affected extremity. * No driving for 24 hours. * NO SMOKING. * Avoid straining for bowel movements for 7 days. * Gentle walking on level ground is allowed. * Returning to work will depend on the type of procedure and the results. Your doctor will discuss this with you. CALL YOUR DOCTOR FOR ANY OF THE FOLLOWING: *If bleeding from the puncture site occurs- Apply gentle pressure to site with clean cloth and call your doctor or EMS. * If a knot or lump forms under the skin, increases in size, or causes pain. * If bruising appears to be worsening or moving further down your leg instead of disappearing. * Temperature above 101 F. CARE OF YOUR GROIN INCISION; * Bruising or purple discoloration of the skin near the puncture site is common. * You may shower only, no bathtub bathing for 5 days. Be careful to avoid slipping as your leg may feel stiff. * If a closure device was used on your femoral artery, please see the attached guide regarding care of the device and your leg. * Leave dressing on FOR 24 hours. CARE OF YOUR WRIST INCISION; * Bruising or purple discoloration of the skin near the puncture site is common. * You may shower. * DO NOT submerge wrist. * Leave dressing on FOR 24 hours. ZACHERY ROSADO MD FAC FAC CCDS Dec 03, 2018 12:58
[2018-12-03] MEDS ORDERED: PATIENT MAY USE OWN MEDS, ALL PO SCH (13:00)
[2018-12-03] MEDS ORDERED: KCL 20 MEQ TAB (K-DUR) PO NR (13:45)
--- NOTE | 2018-12-03 15:32 | CARDIAC CATHETERIZATION ---
DATE OF SERVICE: 12/03/2018 The patient is a 63-year-old man who is known to have multiple coronary artery disease risk factors. He recently underwent myocardial perfusion imaging for coronary risk stratification prior to orthopedic surgery. 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 Cardiac catheterization was recommended. Informed consent was obtained. DESCRIPTION OF PROCEDURE: He was brought to the cardiac catheterization laboratory in a fasting state. Right groin was prepared and draped in the usual sterile fashion. Lidocaine 1% was used for local anesthesia. Modified Seldinger technique was used to advance a 5-Czech sheath in right femoral artery, 5-Czech JL4 catheter for left coronary angiography, 5-Czech JR4 catheter for right coronary angiography, 5-Czech pigtail catheter was used for left heart catheterization and left ventricular angiography. Pigtail was pulled back to the aortic arch and aortic arch angiography was performed. Pigtail was removed. Angiography of the right femoral artery had been carried out through the sheath at the beginning of the procedure. At the end of the procedure, Mynx was used to achieve hemostasis. He tolerated the procedure well. HEMODYNAMICS: Left ventricular end-diastolic pressure following coronary angiography was 8 mmHg. There was no significant pressure gradient on pullback across the aortic valve. Ascending aortic pressure was 122/65 with a mean of 88 mmHg. CORONARY ANGIOGRAPHY: Coronary calcification is seen. Left main coronary artery does not exhibit significant disease. Left anterior descending artery has diffuse mild plaques. Left circumflex artery has diffuse mild plaque. The terminal obtuse marginal branch of the left circumflex artery has 50% distal stenosis. Left to right collaterals seemed to the dominant right coronary artery. The right coronary artery is occluded at its ostium. Bridging collaterals were seen to the distal right coronary artery. LEFT VENTRICULAR ANGIOGRAPHY: Left ventricular angiography was carried out in the right anterior oblique projection. Global left ventricular systolic function is well preserved, ejection fraction of 45% to 50%. There is posterobasal dyskinesis. AORTIC ARCH ANGIOGRAPHY: Aortic arch angiography indicates mild generalized enlargement of the thoracic aorta without any distinct aneurysm. No dissection is seen. The neck arteries, to the extent visualized, do not exhibit significant stenoses. CONCLUSIONS: 1. Coronary artery disease primarily consisting of chronic total occlusion of ostial/proximal right coronary artery with antegrade, bridging collaterals and left to right collaterals. 2. Posterobasal dyskinesis. 3. Well preserved global left ventricular systolic function with ejection fraction approximately 45% to 50%. Based on results of the study, it appears appropriate to continue a conservative approach. His cardiac risk for noncardiac surgery is estimated to be intermediate. We discussed that his risk with him. He understands and wishes to proceed with necessary surgery. Job ID: [id number] DocumentID: [id number] Dictated Date: 12/03/2018 12:45:36 Internal Communications Specialist Date: 12/03/2018 15:31:52 Dictated By: ZACHERY REIS MD, MA, FACP, FACC,
== END 2018-12-03 16:15 | disposition home or self-care (01) ==
LOC: CATH 10:08 → SDC 12:56 → CATH 16:15
PROVIDERS: ATTEND Internal Medicine Cardiovascular Disease
DX: I25.10 Atherosclerotic heart disease of native coronary artery without angina pectoris (principal); R94.39 Abnormal result of other cardiovascular function study; I45.10 Unspecified right bundle-branch block; E11.9 Type 2 diabetes mellitus without complications; I10 Essential (primary) hypertension; E78.5 Hyperlipidemia, unspecified; G89.29 Other chronic pain; M25.552 Pain in left hip; I63.9 Cerebral infarction, unspecified; G81.91 Hemiplegia, unspecified affecting right dominant side; F17.210 Nicotine dependence, cigarettes, uncomplicated; Z88.0 Allergy status to penicillin; Z79.82 Long term (current) use of aspirin; Z79.02 Long term (current) use of antithrombotics/antiplatelets; Z80.9 Family history of malignant neoplasm, unspecified; Z82.49 Family history of ischemic heart disease and other diseases of the circulatory system; Z79.84 Long term (current) use of oral hypoglycemic drugs
CPT/HCPCS: 36221; 36415; 80053; 80061; 85027; 85610; 85730; 87081; 93458

== ENCOUNTER → 2019-07-25 | Outpatient (CLI) | payer MEDICARE ==
[~2019-07-25] MED LIST changes: +ASPI-586 PO; +ATOR40TA PO; +CYCL10TA9 PO; +HYDR50TA3 PO; +IBUP-2473 PO; +MELO15TA39 PO; +METF-478 PO; +VERA180T11 PO
== END ==
LOC: LABNPT 08:56
PROVIDERS: ATTEND Orthopaedic Surgery
DX: Z11.59 Encounter for screening for other viral diseases (principal); M16.12 Unilateral primary osteoarthritis, left hip
CPT/HCPCS: 87635

== ENCOUNTER → 2019-11-17 | Outpatient (CLI) | payer MEDICARE | LOC: LABNPT 08:03 | PROVIDERS: ATTEND Emergency Medicine | DX: Z01.812 Encounter for preprocedural laboratory examination (principal); Z20.828 Contact with and (suspected) exposure to other viral communicable diseases | CPT/HCPCS: 87635 ==

== ENCOUNTER 2020-12-13 10:41 | Emergency (ER) | payer MEDICARE ==
[~2020-12-13] VITALS: Ht 187 cm; Wt 122.2 kg
[~2020-12-13 10:41] MED LIST changes: -HYDR50TA3 PO; +HYDR50TA6 PO; -VERA180T11 PO; +VERA180T25 PO
--- OUTSIDE RECORDS SUMMARY | 2020-12-13 10:47 | XMS REPORT | Clinical Summary ---
Author Author [facility] Organization [facility] Address Unknown Phone Unavailable Care Team Providers Care Merchandise Associate Name Role Phone PCP Unavailable Allergies Not on File Medications Not on file Active Problems Not on file Social History Date Tobacco Use Types Packs/Day Years Used Never Assessed Sex Assigned at Date Recorded Not on file Last Filed Vital Signs Not on file Plan of Treatment Not on file Results Not on filefrom Last 3 Months
[2020-12-13] MEDS ORDERED: LACTATED RINGERS 1,000 ML IV ONE (11:15)
[2020-12-13 11:20] LABS: BASOPHILS # (AUTO) 0.1 10^3/uL (0.0-0.1); BASOPHILS % (AUTO) 1 % (0-10); EOSINOPHILS # (AUTO) 0.2 10^3/uL (0.0-0.3); EOSINOPHILS % (AUTO) 2 % (0-10); HEMATOCRIT 48 % (40-54); HEMOGLOBIN 15.9 g/dL (13.3-17.7); LYMPHOCYTES # (AUTO) 1.8 10^3/uL (1.0-4.0); LYMPHOCYTES % (AUTO) 18 % (12-44); MEAN CORPUSCULAR HEMOGLOBIN 32 pg (25-34); MEAN CORPUSCULAR HGB CONC 33 g/dL (32-36); MEAN CORPUSCULAR VOLUME 96 fL (80-99); MEAN PLATELET VOLUME 9.5 fL (9.0-12.2); MONOCYTES # (AUTO) 0.5 10^3/uL (0.0-1.0); MONOCYTES % (AUTO) 5 % (0-12); NEUTROPHILS # (AUTO) 7.6 10^3/uL (1.8-7.8); NEUTROPHILS % (AUTO) 75 % (42-75); PLATELET COUNT 221 10^3/uL (130-400); WHITE BLOOD COUNT 10.2 10^3/uL (4.3-11.0)
--- NOTE | 2020-12-13 11:21 | ED Neurological Problem ---
General Chief Complaint: Dizziness/Syncope Stated Complaint: UNABLE TO KEEP BALANCE Nursing Triage Note: PT PRESENTS TO ED VIA POV FROM HOME WITH COMPLAINTS OF FEELING OFF BALANCE SINCE 299 WHEN HE GOT UP TO USE THE RESTROOM. PT DENIES NAUSEA OR FEELING LIKE THE ROOM IS SPINNING. PT REPORTS, " I JUST FEEL OFF BALANCE." PT REPORTS HE HAS DECREASED R HAND MEDICAL REGISTRAR STRENGTH FROM A PREVIOUS NERVE INJURY. Source: patient Exam Limitations: no limitations History of Present Illness Date Seen by Provider: Dec 13, 2020 Time Seen by Provider: 10:56 Initial Comments 65-year-old male with past medical history of CVA, borderline diabetes, hypertension, hyperlipidemia coming in due to balance issues. He says he woke up Sunday in the middle the night to go to the bathroom and felt himself falling over in the dark. Did not fall or hit his head. Did not pass out. Since then he has had disequilibrium with standing. 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 Is not have any symptoms of vertigo, does have chronic tinnitus which is unchanged. Denies any weakness, numbness, vision changes, headache, neck pain, or any other concerns. Does take aspirin and Plavix daily and took them this morning. Allergies and Home Medications Allergies Coded Allergies: Penicillins (Verified Allergy, Unknown, 12/01/10) Patient Home Medication List Home Medication List Reviewed: Yes Aspirin (Aspir 81) 81 Mg Tablet.dr, 81 MG PO DAILY, (Reported) Entered as Reported by: KRISTOPHER NORIEGA on 12/03/18 111 Atorvastatin Calcium (Lipitor) 40 Mg Tablet, 40 MG PO DAILY, (Reported) Entered as Reported by: KRISTOPHER NORIEGA on 12/03/18 111 Clopidogrel Bisulfate (Plavix) 75 Mg Tablet, 75 MG PO DAILY, (Reported) Entered as Reported by: JA ALRDICH on 07/14/18 1159 Cyclobenzaprine HCl (Cyclobenzaprine HCl) 10 Mg Tablet, 10 MG PO BID PRN for MUSCLE SPASMS, (Reported) Entered as Reported by: KRISTOPHER NORIEGA on 12/03/18 111 Hydrocodone Bit/Acetaminophen (Lortab 7.5 Mg Tablet) 1 Ea Tablet, 1 EA PO Q8H PRN for PAIN-MODERATE, (Reported) Entered as Reported by: KRISTOPHER NORIEGA on 12/03/18 1116 Meloxicam (Meloxicam) 15 Mg Tablet, 15 MG PO DAILY, (Reported) Entered as Reported by: KRISTOPHER NORIEGA on 12/03/18 111 Verapamil HCl (Verapamil ER) 180 Mg Tablet.er, 180 MG PO DAILY, (Reported) Entered as Reported by: KRISTOPHER NORIEGA on 12/03/18 1117 Review of Systems Review of Systems Constitutional: No chills, No fever Eyes: Denies Blurred Vision, Denies Photophobia Ears, Nose, Mouth, Throat: denies ear pain Respiratory: No cough, No short of breath Cardiovascular: No chest pain, No syncope Gastrointestinal: No abdominal pain, No diarrhea, No nausea, No vomiting Genitourinary: no symptoms reported Musculoskeletal: No back pain, No joint pain Skin: no symptoms reported Psychiatric/Neurological: Denies Headache, Denies Numbness, Denies Weakness Endocrine: No Symptoms Reported Hematologic/Lymphatic: No Symptoms Reported All Other Systems Reviewed Negative Unless Noted: Yes Past Ifwyhon-Lljahn-Wcndom Hx Patient Social History Tobacco Use?: Yes Tobacco type used: Cigarettes Smoking Status: Current Everyday Smoker Smokeless Tobacco Frequency: Current Everyday User Substance use?: No Alcohol Use?: Yes Alcohol type: Beer Alcohol Frequency: Rarely Pt feels they are or have been: No Immunizations Up To Date First/Initial COVID19 Vaccinat: 03/05/20 Second COVID19 Vaccination Jeyson: 03/25/20 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 Seasonal Allergies Seasonal Allergies: No Past Medical History Surgery/Hospitalization HX: SX: L HIP PMH: TIA, STROKE, CAD Surgeries: Yes (BACK-LUMBAR, R ANKLE, GANGLION CYST) Appendectomy Respiratory: Yes (POST-OP, IMMOBILITY WITH CAST ON LEG) Pulmonary Embolism Cardiac: Yes Hypertension Neurological: Yes TIA Reproductive Disorders: No Bladder Infection, Kidney Stones Gastrointestinal: No Musculoskeletal: Yes Chronic Back Pain Endocrine: Yes Diabetes, Non-Insulin dep Cancer: No Psychosocial: No Integumentary: No Blood Disorders: No Physical Exam Vital Signs Vital Signs - First Documented 12/13/20 10:52 Temp 35.9 Pulse 65 Resp 18 B/P (MAP) 127/86 (100) Capillary Refill : Less Than 3 Seconds Height, Weight, BMI Height: 6'2.00" Weight: 264lbs. oz. 119.835316yc; 34.00 BMI Method:Stated General Appearance: WD/WN, no apparent distress HEENT: PERRL/EOMI, normal ENT inspection, TMs normal, pharynx normal Neck: non-tender, full range of motion, supple, normal inspection Respiratory: chest non-tender, lungs clear, normal breath sounds, no respiratory distress, no accessory muscle use Cardiovascular: regular rate, rhythm, no edema, no murmur Gastrointestinal: normal bowel sounds, non tender, soft; No distended, No gu arding, No rebound Back: normal inspection, no CVA tenderness, no vertebral tenderness Extremities: normal range of motion, non-tender, normal inspection, no pedal edema, no calf tenderness, normal capillary refill Neurologic/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, no motor/sensory deficits, alert, normal mood/affect, oriented x 3 Crainal Nerves: normal hearing, normal speech, PERRL Coordination/Gait: normal finger to nose, normal gait, negative Romberg's sign, other (Normal guaq-ok-ssej) Motor/Sensory: no motor deficit, no sensory deficit, no pronator drift Skin: normal color, warm/dry Lymphatic: no adenopathy Stroke Onset of Symptoms Date of Onset of Symptoms: Dec 11, 2020 Time of Symptom Onset: 06:00 Onset of Symptoms: Yes Symptoms onset unknown: No NIH Stroke Scale Assessment Gaze: Normal (0), Total: 0 Stroke Thrombolytic Exclusion Age 18 or Over: Yes Acute intenal hemorrhage: No History of CVA: No Uncontrolled Coagulation Defec: No Intracranial Hemorrhage: No Severe Hypertension: No GI or Bleed: No Subarachnoid Hemorrhage: No Intracranial Neoplasm/Aneurysm: No Oral Anticoagulants: No Surgery or Trauma: No Puncture of Non-Compressible V: No Recent CPR: No Diabetic Hemorrhagic Retinopat: No Organ Biopsy: No Recent Obstetric Delivery: No Glucose: No Significant Hepatic Dysfunctio: No NIH Stoke Scale >22: No Bacterial Endocarditis: No Pericarditis: No Improving Symptoms: Yes Platelets: No IV - TPa Received IV - TPa Procedure Performed?: No (Not a candidate as his NIH score is 0 and he had symptoms that started greater than 48 hours ago) Progress/Results/Core Measures Results/Orders Lab Results Laboratory Tests Test 12/13/20 11:14 Range/Units White Blood Count 10.2 4.3-11.0 10^3/uL Red Blood Count 4.95 4.30-5.52 10^6/uL Hemoglobin 15.9 13.3-17.7 g/dL Hematocrit 48 40-54 % Mean Corpuscular Volume 96 80-99 fL Mean Corpuscular Hemoglobin 32 25-34 pg Mean Corpuscular Hemoglobin Concent 33 32-36 g/dL Red Cell Distribution Width 11.9 10.0-14.5 % Platelet Count 221 130-400 10^3/uL Mean Platelet Volume 9.5 9.0-12.2 fL Immature Granulocyte % (Auto) 0 % Neutrophils (%) (Auto) 75 42-75 % Lymphocytes (%) (Auto) 18 12-44 % Monocytes (%) (Auto) 5 0-12 % Eosinophils (%) (Auto) 2 0-10 % Basophils (%) (Auto) 1 0-10 % Neutrophils # (Auto) 7.6 1.8-7.8 10^3/uL Lymphocytes # (Auto) 1.8 1.0-4.0 10^3/uL Monocytes # (Auto) 0.5 0.0-1.0 10^3/uL Eosinophils # (Auto) 0.2 0.0-0.3 10^3/uL Basophils # (Auto) 0.1 0.0-0.1 10^3/uL Immature Granulocyte # (Auto) 0.0 0.0-0.1 10^3/uL Prothrombin Time 13.6 12.2-14.7 SEC INR Comment 1.0 0.8-1.4 Activated Partial Thromboplast Time 27 24-35 SEC Sodium Level 138 135-145 MMOL/L Potassium Level 3.8 3.6-5.0 MMOL/L Chloride Level 102 98-107 MMOL/L Carbon Dioxide Level 24 21-32 MMOL/L Anion Gap 12 5-14 MMOL/L Blood Urea Nitrogen 17 7-18 MG/DL Creatinine 1.12 0.60-1.30 MG/DL Estimat Glomerular Filtration Rate 65 BUN/Creatinine Ratio 15 Glucose Level 133 H 70-105 MG/DL Calcium Level 9.6 8.5-10.1 MG/DL Corrected Calcium 9.6 8.5-10.1 MG/DL Total Bilirubin 1.2 H 0.1-1.0 MG/DL Aspartate Amino Transf (AST/SGOT) 19 5-34 U/L Alanine Aminotransferase (ALT/SGPT) 15 0-55 U/L Alkaline Phosphatase 69 40-136 U/L Troponin I < 0.028 <0.028 NG/ML Total Protein 7.2 6.4-8.2 GM/DL Albumin 4.0 3.2-4.5 GM/DL My Orders Orders - TRUDY RODRIGUEZ MD Cbc With Automated Diff (12/13/20 11:05) Protime With Inr (12/13/20 11:05) Partial Thromboplastin Time (12/13/20 11:05) Comprehensive Metabolic Panel (12/13/20 11:05) Troponin I (12/13/20 11:05) Ua Culture If Indicated (12/13/20 11:05) Chest 1 View, Ap/Pa Only (12/13/20 11:05) Ekg Tracing (12/13/20 11:05) Accucheck Stat ONCE (12/13/20 11:05) Ed Iv/Invasive Line Start (12/13/20 11:05) Vital Signs Stroke Patient Q15M (12/13/20 11:05) Ct Head Wo-R/O Stroke (12/13/20 11:05) O2 (12/13/20 11:05) Monitor-Rhythm Ecg Trace Only (12/13/20 11:05) Dysphagia Screening Tool (12/13/20 11:05) Lactated Ringers (Lr 1000 Ml Iv Solution (12/13/20 11:15) Vital Signs Stroke Patient Q15M (12/13/20 13:08) Dysphagia Screening Tool (12/13/20 13:08) Ct Angio Head/Neck (12/13/20 13:08) Mri Brain W/O Contrast (12/13/20 13:08) Iohexol Injection (Omnipaque 350 Mg/Ml 1 (12/13/20 13:45) Received Contrast (Hold Metformin- Contr (12/13/20 13:45) Sodium Chloride Flush (Catheter Flush Sy (12/13/20 13:45) Ns (Ivpb) (Sodium Chloride 0.9% Ivpb Bag (12/13/20 13:45) Medications Given in ED Current Medications Medications Dose Ordered Sig/[place] Route Start Time Stop Time Status Last Admin Dose Admin Iohexol 75 ml ONCE ONCE IV 12/13/20 13:45 12/13/20 13:46 DC 12/13/20 13:54 75 ML Lactated Ringer's 1,000 ml @ 500 mls/hr Q2H ONCE IV 12/13/20 11:15 12/13/20 13:14 DC 12/13/20 11:20 500 MLS/HR Sodium Chloride 10 ml NEEDED PRN IV 12/13/20 13:45 12/13/20 13:54 10 ML Sodium Chloride 100 ml ONCE ONCE IV 12/13/20 13:45 12/13/20 13:46 DC 12/13/20 13:54 80 ML Vital Signs/I&O 12/13/20 10:52 Temp 35.9 Pulse 65 Resp 18 B/P (MAP) 127/86 (100) Blood Pressure Mean: 100 Progress Progress Note : Progress Note 65-year-old male with above history coming in due to disequilibrium. ABCs were intact and vitals were stable on presentation. Symptoms have been ongoing for greater than 2 days. NIH scale today is 0. Even if he were to have a stroke, he has presented well out of any window for TPA. His tongue does appear dry and it is possible he is a little volume down. We will give him some fluids while we are working him up. Is not having any vertigo associated with this. CT head ordered without contrast which was negative for any acute findings. Called and discussed the case with the stroke neurologist at Dr. Noonan who recommended getting a CTA head and neck as well as an MRI of the brain. Both of these were ordered and were negative for any acute findings that would suggest his symptoms. 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 Possible he has some inner ear pathology that is causing his disequilibrium. I will have him follow-up with ENT here. He was then discharged home in stable condition with strict return precautions. Initial ECG Impression Date: Dec 13, 2020 Initial ECG Impression Time: 11:15 Initial ECG Rate: 66 Initial ECG Rhythm: Normal Sinus Comment QRS with a right bundle branch block, no significant ST elevations or T wave inversions Diagnostic Imaging Diagonstic Imaging: CT, MRI (brain) Plain Films/CT/US/NM/MRI: head [facility] [place] [place] NAME: ANTONIO WHEATLEY [facility] REC#: [id number] PT STATUS: REG ER : 1955 PHYSICIAN: TRUDY RODRIGUEZ MD ADMIT DATE: 12/13/20/ER Draft Date of Exam:12/13/20 CT HEAD WO-R/O STROKE PROCEDURE: CT head wo r/o stroke. TECHNIQUE: Multiple contiguous axial images were obtained through the brain without the use of intravenous contrast. Auto Exposure Controls were utilized during the CT exam to meet ALARA standards for radiation dose reduction. INDICATION: Dizziness. Balance difficulties. COMPARISON: Comparison is made with a prior study from 07/14/2018. FINDINGS: The ventricles are normal in size, shape, and position. There is no acute parenchymal hemorrhage, edema, or mass. There is no extra-axial mass or hemorrhage. There is no acute bony abnormality. IMPRESSION: No abnormality is seen with no change from 07/14/2018. Dictated on workstation # [id number] Dict: 12/13/20 1212 Trans: 12/13/20 1215 AS6 [id number] Interpreted by: DAVID ISLAS MD Electronically signed by: [facility] [place] NAME: ANTONIO WHEATLEY [facility] REC#: [id number] PT STATUS: REG ER : 1955 PHYSICIAN: TRUDY RODRIGUEZ MD ADMIT DATE: 12/13/20/ER Signed Date of Exam:12/13/20 MRI BRAIN W/O CONTRAST PROCEDURE: MR imaging of the brain without contrast. TECHNIQUE: Multiplanar, multisequence MR imaging of the brain was performed without contrast. INDICATION: Ill feeling. Feels intoxicated but is not. COMPARISON: CT head and CTA head and neck performed earlier the same date. FINDINGS: No acute ischemia, mass, or hemorrhage. Scattered T2 hyperintense signal is seen in the periventricular and subcortical white matter. The ventricles and cortical sulci are prominent. The basilar cisterns are symmetric and unremarkable. The sellar and suprasellar regions have a normal appearance. The brainstem and posterior fossa are unremarkable. Mild mucosal thickening is seen in the ethmoid sinuses. The mastoid air cells demonstrate normal signal characteristics. The globes and orbits are symmetric and unremarkable. The scalp and calvarium have a normal appearance. A partially visualized mass is seen in the left parotid gland measuring 2.8 x 2.3 cm. IMPRESSION: 1. No acute ischemia, mass, or hemorrhage. 2. Scattered chronic microvascular disease with generalized parenchymal volume loss. 3. Nonspecific partially visualized mass in the left parotid gland. Given the findings on the CTA head and neck performed the same date this is favored to represent a Warthin tumor. Consider ENT consultation to further evaluate. Dictated by: Dictated on workstation # [id number] Dict: 12/13/20 1357 Trans: 12/13/20 1414 [id number] Interpreted by: LISSET DAVENPORT DO Electronically signed by: LISSET DAVENPORT DO 12/13/20 1414 [facility] [place] NAME: ANTONIO WHEATLEY [facility] REC#: [id number] PT STATUS: REG ER : 1955 PHYSICIAN: TRUDY RODRIGUEZ MD ADMIT DATE: 12/13/20/ER Signed Date of Exam:12/13/20 CT ANGIO HEAD/NECK PROCEDURE: CT angiography of the head and CT angiography of the neck with and without contrast. TECHNIQUE: Contiguous noncontrast images were obtained from the skull base through the vertex. After intravenous contrast administration, helical CT angiography of the neck was performed. Source data was reformatted into 3D MIP projections. Delayed post contrast acquisition was also obtained. Auto Exposure Controls were utilized during the CT exam to meet ALARA standards for radiation dose reduction. INDICATION: Abnormal feeling. Feels intoxicated but is not. Concern for stroke. COMPARISON: CT head and MRI brain performed earlier the same date. FINDINGS: CTA Neck: The visualized portions of the aortic arch demonstrate no evidence of aneurysm or dissection. There is conventional branching pattern of the great vessels of the aorta. The brachiocephalic artery is normal in course and caliber. The right and left common carotid origins are unremarkable. The origin of the left subclavian artery is patent. The common carotid arteries and internal carotid arteries demonstrate a tortuous course. There is a moderate amount of atherosclerotic plaque in the right carotid bulb and proximal right internal carotid artery resulting in less than 50% stenosis. Small amount of atherosclerotic plaque is seen in the left carotid system. No evidence of dissection in the carotid systems. The external carotid arteries are patent and unremarkable. The left vertebral artery is dominant. The origin of the right vertebral artery is seen and is unremarkable. The origin of the left vertebral artery is off the aorta. There is no focal stenosis seen within the neck. There is no dissection. The vertebral arteries are well visualized to up to the level of the basilar artery. The osseous structures of the cervical spine are unremarkable. Bilateral parotid masses are seen, left greater than right. Multiple lesions are noted within the right parotid gland. Included views through the lung apices demonstrate no focal consolidation. CTA brain: Small amount of atherosclerotic plaque is seen in the [place] of the bilateral terminal internal carotid arteries without significant stenosis. No stenosis is seen in the bilateral anterior, middle, and posterior cerebral arteries. No evidence of aneurysm the [place]. In the posterior circulation, both of the vertebral arteries demonstrate normal opacification. Both the right and left PICA arteries are identified. The basilar artery is normal in course and caliber. The terminal branch vessels including the superior cerebellar arteries unremarkable. IMPRESSION: 1. No stenosis or aneurysm in the [place]. No evidence of large vessel occlusion. 2. Moderate amount of atherosclerotic plaque in the right carotid bulb and proximal right internal carotid artery resulting in less than 50% stenosis. Smaller amount of atherosclerotic plaque is seen in the left carotid bulb without significant stenosis. 3. Multiple bilateral parotid masses. 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 Consider ENT consultation to further evaluate. Dictated by: Dictated on workstation # [id number] Dict: 12/13/20 1403 Trans: 12/13/20 1418 [facility] [id number] Interpreted by: LISSET DAVENPORT DO Electronically signed by: LISSET DAVENPORT DO 12/13/20 1418 Departure Impression Primary Impression: Warthin tumor Additional Impression: Dysequilibrium Disposition: 01 HOME, SELF-CARE Condition: Stable Departure-Patient Inst. Decision time for Depature: 14:37 Referrals: VERN GREENE MD, RICK D MD (PCP/Family) Primary Care Physician Patient Instructions: Dizziness, Nonvertigo, (DC) Add. Discharge Instructions: It does not appear like you had a stroke today. On all of the pictures we got you do seem to have a benign meaning noncancerous mass in your parotid gland. We recommend you follow-up with our ENT doctors here. This tumor is called a Warthin tumor. All discharge instructions reviewed with patient and/or family. Voiced understanding. TRUDY RODRIGUEZ MD Dec 13, 2020 11:21
[2020-12-13 11:37] LABS: CHLORIDE 102 MMOL/L (98-107); POTASSIUM 3.8 MMOL/L (3.6-5.0); SODIUM 138 MMOL/L (135-145)
[2020-12-13 11:38] LABS: CALCIUM 9.6 MG/DL (8.5-10.1)
[2020-12-13 11:39] LABS: GLUCOSE 133 MG/DL (70-105); TOTAL PROTEIN 7.2 GM/DL (6.4-8.2)
[2020-12-13 11:40] LABS: CARBON DIOXIDE 24 MMOL/L (21-32); PROTHROMBIN TIME PATIENT 13.6 SEC (12.2-14.7)
[2020-12-13 11:41] LABS: BILIRUBIN,TOTAL 1.2 MG/DL (0.1-1.0)
[2020-12-13 11:43] LABS: ALKALINE PHOSPHATASE 69 U/L (40-136); CREATININE SERUM 1.12 MG/DL (0.60-1.30); GFR ESTIMATED 65
[2020-12-13 11:44] LABS: BUN/CREATININE RATIO 15
[2020-12-13 11:46] LABS: ALANINE AMINOTRANSFERASE 15 U/L (0-55)
--- NOTE | 2020-12-13 11:52 | Diagnostic Imaging Report ---
CHEST 1 VIEW, AP/PA ONLY Indication: Weakness Comparison: 07/14/2018 Findings: No focal airspace disease in the visualized lungs. Please note that the posterior lower lobes are poorly evaluated by portable radiography. No pleural effusion or pneumothorax. Unchanged enlargement of cardiac silhouette. Multiple old left-sided rib fractures. Impression: 1. No acute cardiopulmonary process by portable radiography. Dictated by: Dictated on workstation # [id number]
--- NOTE | 2020-12-13 12:15 | Diagnostic Imaging Report ---
PROCEDURE: CT head wo r/o stroke. TECHNIQUE: Multiple contiguous axial images were obtained through the brain without the use of intravenous contrast. Auto Exposure Controls were utilized during the CT exam to meet ALARA standards for radiation dose reduction. INDICATION: Dizziness. Balance difficulties. COMPARISON: Comparison is made with a prior study from 07/14/2018. FINDINGS: The ventricles are normal in size, shape, and position. There is no acute parenchymal hemorrhage, edema, or mass. There is no extra-axial mass or hemorrhage. There is no acute bony abnormality. IMPRESSION: No abnormality is seen with no change from 07/14/2018. Dictated by: Dictated on workstation # [id number]
[2020-12-13] MEDS ORDERED: NS 100 ML (IVPB) BAG IV ONE (13:45)
[2020-12-13] MEDS ORDERED: CATHETER FLUSH 10 ML SYR IV PRN (13:45)
[2020-12-13] MEDS ORDERED: HOLD METFORMIN - RECEIVED CONTRAST 20 ML VIAL IV SCH (13:45)
[2020-12-13] MEDS ORDERED: IOHEXOL 350 MG/ML 100 ML (OMNIPAQUE 350) VIAL IV ONE (13:45)
--- NOTE | 2020-12-13 14:06 | Diagnostic Imaging Report ---
PROCEDURE: MR imaging of the brain without contrast. TECHNIQUE: Multiplanar, multisequence MR imaging of the brain was performed without contrast. INDICATION: Ill feeling. Feels intoxicated but is not. COMPARISON: CT head and CTA head and neck performed earlier the same date. FINDINGS: No acute ischemia, mass, or hemorrhage. Scattered T2 hyperintense signal is seen in the periventricular and subcortical white matter. The ventricles and cortical sulci are prominent. The basilar cisterns are symmetric and unremarkable. The sellar and suprasellar regions have a normal appearance. The brainstem and posterior fossa are unremarkable. Mild mucosal thickening is seen in the ethmoid sinuses. The mastoid air cells demonstrate normal signal characteristics. The globes and orbits are symmetric and unremarkable. The scalp and calvarium have a normal appearance. A partially visualized mass is seen in the left parotid gland measuring 2.8 x 2.3 cm. IMPRESSION: 1. No acute ischemia, mass, or hemorrhage. 2. Scattered chronic microvascular disease with generalized parenchymal volume loss. 3. Nonspecific partially visualized mass in the left parotid gland. Given the findings on the CTA head and neck performed the same date this is favored to represent a Warthin tumor. Consider ENT consultation to further evaluate. Dictated by: Dictated on workstation # [id number]
--- NOTE | 2020-12-13 14:16 | Diagnostic Imaging Report ---
PROCEDURE: CT angiography of the head and CT angiography of the neck with and without contrast. TECHNIQUE: Contiguous noncontrast images were obtained from the skull base through the vertex. After intravenous contrast administration, helical CT angiography of the neck was performed. Source data was reformatted into 3D MIP projections. Delayed post contrast acquisition was also obtained. Auto Exposure Controls were utilized during the CT exam to meet ALARA standards for radiation dose reduction. INDICATION: Abnormal feeling. Feels intoxicated but is not. Concern for stroke. COMPARISON: CT head and MRI brain performed earlier the same date. FINDINGS: CTA Neck: The visualized portions of the aortic arch demonstrate no evidence of aneurysm or dissection. There is conventional branching pattern of the great vessels of the aorta. The brachiocephalic artery is normal in course and caliber. The right and left common carotid origins are unremarkable. The origin of the left subclavian artery is patent. The common carotid arteries and internal carotid arteries demonstrate a tortuous course. There is a moderate amount of atherosclerotic plaque in the right carotid bulb and proximal right internal carotid artery resulting in less than 50% stenosis. Small amount of atherosclerotic plaque is seen in the left carotid system. No evidence of dissection in the carotid systems. The external carotid arteries are patent and unremarkable. The left vertebral artery is dominant. The origin of the right vertebral artery is seen and is unremarkable. The origin of the left vertebral artery is off the aorta. There is no focal stenosis seen within the neck. There is no dissection. The vertebral arteries are well visualized to up to the level of the basilar artery. The osseous structures of the cervical spine are unremarkable. Bilateral parotid masses are seen, left greater than right. Multiple lesions are noted within the right parotid gland. Included views through the lung apices demonstrate no focal consolidation. CTA brain: Small amount of atherosclerotic plaque is seen in the [place] of the bilateral terminal internal carotid arteries without significant stenosis. No stenosis is seen in the bilateral anterior, middle, and posterior cerebral arteries. No evidence of aneurysm the [place]. In the posterior circulation, both of the vertebral arteries demonstrate normal opacification. Both the right and left PICA arteries are identified. The basilar artery is normal in course and caliber. The terminal branch vessels including the superior cerebellar arteries unremarkable. IMPRESSION: 1. No stenosis or aneurysm in the [place]. No evidence of large vessel occlusion. 2. Moderate amount of atherosclerotic plaque in the right carotid bulb and proximal right internal carotid artery resulting in less than 50% stenosis. Smaller amount of atherosclerotic plaque is seen in the left carotid bulb without significant stenosis. 3. Multiple bilateral parotid masses. 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 Consider ENT consultation to further evaluate. Dictated by: Dictated on workstation # [id number]
[2020-12-13 15:00] VITALS: BP 125/76
== END 2020-12-13 15:00 | disposition home or self-care (01) ==
LOC: EDUNIT# 10:41 → ER 10:43
DX: D11.9 Benign neoplasm of major salivary gland, unspecified (principal); R42 Dizziness and giddiness; I10 Essential (primary) hypertension; I25.10 Atherosclerotic heart disease of native coronary artery without angina pectoris; E11.9 Type 2 diabetes mellitus without complications; G89.29 Other chronic pain; M54.9 Dorsalgia, unspecified; Z86.73 Personal history of transient ischemic attack (TIA), and cerebral infarction without residual deficits; F17.210 Nicotine dependence, cigarettes, uncomplicated; Z86.711 Personal history of pulmonary embolism; Z79.82 Long term (current) use of aspirin; Z79.01 Long term (current) use of anticoagulants; Z79.899 Other long term (current) drug therapy; Z79.891 Long term (current) use of opiate analgesic
CPT/HCPCS: 36415; 70450; 70496; 70498; 70551; 71045; 80053; 84484; 85025; 85610; 85730; 93005; 93041

== ENCOUNTER → 2021-03-01 | Outpatient (CLI) | payer MEDICARE ==
[~2021-03-01] MED LIST changes: +CYCL10TA25 PO; -CYCL10TA9 PO; -VERA180T25 PO; +VERA180T55 PO
== END ==
LOC: LABNPT 02:35
PROVIDERS: ATTEND Otolaryngology Otolaryngology/Facial Plastic Surgery
DX: G47.33 Obstructive sleep apnea (adult) (pediatric) (principal); Z20.822 Contact with and (suspected) exposure to COVID-19
CPT/HCPCS: 87635

== ENCOUNTER 2021-03-03 19:47 | Outpatient (CLI) | payer MEDICARE | END 2021-03-04 06:10 | disposition home or self-care (01) | LOC: SLEEP 19:47 | PROVIDERS: ATTEND Otolaryngology Otolaryngology/Facial Plastic Surgery | DX: G47.33 Obstructive sleep apnea (adult) (pediatric) (principal); R09.02 Hypoxemia | CPT/HCPCS: 95810 ==

== ENCOUNTER → 2021-03-23 | Outpatient (CLI) | payer MEDICARE ==
[~2021-03-23] MED LIST changes: +CATHETER FLUSH 10 ML SYR IV PRN; +HOLD METFORMIN - RECEIVED CONTRAST 20 ML VIAL IV SCH; +IOHEXOL 350 MG/ML 100 ML (OMNIPAQUE 350) VIAL IV ONE; +NS 100 ML (IVPB) BAG IV ONE
--- NOTE | 2021-03-23 09:45 | Diagnostic Imaging Report ---
PROCEDURE: US Hepatic (Liver). TECHNIQUE: Multiple real-time grayscale images were obtained over the right upper quadrant in various projections. INDICATION: Elevated levels of transaminases. Liver is enlarged at 19.7 cm. No discrete liver mass is detected. Portal vein is patent and shows normal direction of flow. Gallbladder is without stones or sludge. No wall thickening or biliary duct dilatation is seen. The visualized pancreas unremarkable. Aorta is nonaneurysmal. IVC is patent. Right kidney is without calculi or hydronephrosis. There is no ascites. IMPRESSION: 1. Hepatomegaly. 2. No evidence of cholelithiasis or acute cholecystitis. Dictated by: Dictated on workstation # [id number]
--- NOTE | 2021-03-23 10:11 | Diagnostic Imaging Report ---
PROCEDURE: CT chest with contrast only. TECHNIQUE: Multiple contiguous axial images were obtained through the chest after administration of intravenous contrast. Auto Exposure Controls were utilized during the CT exam to meet ALARA standards for radiation dose reduction. INDICATION: Unexplained weight loss. No prior studies are available for comparison. No axillary lymphadenopathy is detected. A slightly prominent lymph node in the right paratracheal location is noted measuring 2.5 x 1.0 cm, nonspecific. No hilar lymphadenopathy is detected. There are coronary arterial calcifications. There is no pericardial or pleural fluid identified. Imaging through lung parenchyma demonstrates some scarring or atelectasis in the medial aspect of the right lower lobe. Lungs are otherwise clear. No infiltrates are seen. No nodules or masses are detected. Both adrenal glands demonstrate some mild low-density enlargement suggestive of adenomas. The bony structures are nonacute. And still no is made of a probable sebaceous cyst in the midline subcutaneous tissues of the upper back measuring 2.3 cm. IMPRESSION: 1. Nonspecific mildly enlarged right paratracheal lymph node. The study is otherwise unremarkable. No pulmonary mass or infiltrate is seen. There is minimal scarring or atelectasis in the right lower lobe. 2. Probable bilateral adrenal adenomas. Dictated by: Dictated on workstation # [id number]
== END ==
LOC: RAD 09:00
PROVIDERS: ATTEND Physician Assistant
DX: R16.0 Hepatomegaly, not elsewhere classified (principal); R59.0 Localized enlarged lymph nodes; E80.6 Other disorders of bilirubin metabolism; I10 Essential (primary) hypertension; M62.838 Other muscle spasm; E78.49 Other hyperlipidemia; R74.01 Elevation of levels of liver transaminase levels; M54.2 Cervicalgia; R91.8 Other nonspecific abnormal finding of lung field; R63.4 Abnormal weight loss; R53.83 Other fatigue; R31.29 Other microscopic hematuria; Z72.0 Tobacco use
CPT/HCPCS: 71260; 76705

== ENCOUNTER 2021-12-31 15:19 | Emergency (ER) | payer OTHER, MEDICARE ==
[~2021-12-31] VITALS: Ht 187.9 cm; Wt 114.7 kg
[~2021-12-31 15:19] MED LIST changes: -CATHETER FLUSH 10 ML SYR IV PRN; -HOLD METFORMIN - RECEIVED CONTRAST 20 ML VIAL IV SCH; -IOHEXOL 350 MG/ML 100 ML (OMNIPAQUE 350) VIAL IV ONE; -NS 100 ML (IVPB) BAG IV ONE
--- NOTE | 2021-12-31 16:14 | Diagnostic Imaging Report ---
CLINICAL INDICATION: Patient injured left shoulder earlier this morning. Patient had pain and tingling in left shoulder and increased pain when turning his head to the right. EXAM: X-ray of the left shoulder, 2 views. COMPARISON: None. FINDINGS: There is no acute fracture or dislocation. There are degenerative spurs involving the left proximal humeral head/neck junction region. There are degenerative spurs involving the left AC joint region. 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 Dictated by: Dictated on workstation # [id number]
[2021-12-31] MEDS ORDERED: CYCL10TA25 PO (17:00)
--- NOTE | 2021-12-31 17:01 | ED Upper Extremity ---
General Chief Complaint: Upper Extremity Stated Complaint: LEFT SHOULDER PAIN Nursing Triage Note: INJURED LEFT SHOULDER EARLIER THIS AM. HAVING PAIN AND TINGLING IN LEFT SHOULDER AND INCREASED PAIN WHEN TURNOING HIS HEAD TO THE RIGHT. WAS AT WORK, ASSISTED MOVING A BED. 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 He states he has had some tingling in his left shoulder and upper arm as well. He states he feels like his muscles are tight in the region. Denies any other pain or injury. He has not taken any medications for the symptoms. Allergies and Home Medications Allergies Coded Allergies: Penicillins (Verified Allergy, Unknown, 12/31/21) Patient Home Medication List Home Medication List Reviewed: Yes Aspirin (Aspir 81) 81 Mg Tablet.dr, 81 MG PO DAILY, (Reported) Entered as Reported by: KRISTOPHER NORIEGA on 12/03/18 111 Atorvastatin Calcium (Lipitor) 40 Mg Tablet, 40 MG PO DAILY, (Reported) Entered as Reported by: KRISTOPHER NORIEGA on 12/03/18 111 Clopidogrel Bisulfate (Plavix) 75 Mg Tablet, 75 MG PO DAILY, (Reported) Entered as Reported by: JA ALDRICH on 07/14/18 1159 Cyclobenzaprine HCl (Cyclobenzaprine HCl) 10 Mg Tablet, 10 MG PO BID PRN for MUSCLE SPASMS, (Reported) Entered as Reported by: KRISTOPHER NORIEGA on 12/03/18 111 Cyclobenzaprine HCl (Cyclobenzaprine HCl) 10 Mg Tablet, 10 MG PO TID PRN for SPASMS Prescribed by: Son Naidu on 12/31/21 1700 Hydrocodone Bit/Acetaminophen (Lortab 7.5 Mg Tablet) 1 Ea Tablet, 1 EA PO Q8H PRN for PAIN-MODERATE, (Reported) Entered as Reported by: KRISTOPHER NORIEGA on 12/03/18 111 Meloxicam (Meloxicam) 15 Mg Tablet, 15 MG PO DAILY, (Reported) Entered as Reported by: KRISTOPHER NORIEGA on 12/03/18 1116 Verapamil HCl (Verapamil ER) 180 Mg Tablet.er, 180 MG PO DAILY, (Reported) Entered as Reported by: KRISTOPHER NORIEGA on 12/03/18 1117 Review of Systems Constitutional: no symptoms reported EENTM: no symptoms reported Respiratory: no symptoms reported Cardiovascular: no symptoms reported Gastrointestinal: no symptoms reported Genitourinary: no symptoms reported Musculoskeletal: see HPI Skin: no symptoms reported Psychiatric/Neurological: No Symptoms Reported Past [id number]-[id number]-[id number] Hx Patient Social History Tobacco type used: Cigarettes Smoking Status: Current Everyday Smoker Substance use?: No Alcohol Use?: Yes Alcohol type: Beer Alcohol Frequency: Rarely Pt feels they are or have been: No Immunizations Up To Date First/Initial COVID19 Vaccinat: 03/05/20 Second COVID19 Vaccination Jeyson: 03/25/20 Third COVID19 Vaccination Date: 2020 Seasonal Allergies Seasonal Allergies: No Past Medical History Surgery/Hospitalization HX: SX: L HIP PMH: TIA, STROKE, CAD Surgeries: Yes (BACK-LUMBAR, R ANKLE, GANGLION CYST) Appendectomy Respiratory: Yes (POST-OP, IMMOBILITY WITH CAST ON LEG) Pulmonary Embolism Cardiac: Yes Hypertension Neurological: Yes TIA Reproductive Disorders: No Bladder Infection, Kidney Stones Gastrointestinal: No Musculoskeletal: Yes Chronic Back Pain Endocrine: Yes Diabetes, Non-Insulin dep Cancer: No Psychosocial: No Integumentary: No Blood Disorders: No Physical Exam Vital Signs Vital Signs - First Documented 12/31/21 15:32 Temp 36.9 Pulse 74 Resp 18 B/P (MAP) 143/81 (101) Pulse Ox 94 O2 Delivery Room Air Capillary Refill : Less Than 3 Seconds Height, Weight, BMI Height: 6'2.00" Weight: 264lbs. oz. 119.431734cm; 32.00 BMI Method:Stated General Appearance: WD/WN, no apparent distress HEENT: PERRL/EOMI, normal ENT inspection, TMs normal, pharynx normal Neck: non-tender, full range of motion, supple, normal inspection Cardiovascular: regular rate, rhythm Respiratory: chest non-tender, lungs clear, normal breath sounds, no respiratory distress, no accessory muscle use Gastrointestinal: normal bowel sounds, non tender, soft Back: normal inspection, no vertebral tenderness Neurologic/Psychiatric: no motor/sensory deficits, alert, normal mood/affect, oriented x 3 Skin: normal color, warm/dry (No tenderness to palpation or provocation of pain with range of motion of the left shoulder; left trapezius is taut and spasms slightly with palpation) Progress/Results/Core Measures Results/Orders My Orders Orders - SON NAIDU APRN Shoulder, Left, 2 Views (12/31/21 15:56) Vital Signs/I&O 12/31/21 12/31/21 15:32 17:05 Temp 36.9 36.9 Pulse 74 70 Resp 18 18 B/P (MAP) 143/81 (101) 137/78 Pulse Ox 94 96 O2 Delivery Room Air Room Air Blood Pressure Mean: 101 Progress Progress Note : Progress Note Patient is nontoxic and well-hydrated on exam. There is no bony tenderness or marked abnormality noted to the left shoulder. The head of the left trapezius is very tender to palpation and is much tighter than the contralateral side. T here is also some very mild spasming elicited with palpation of the left trapezius. X-ray of the left shoulder is acutely negative. Will discharge home with recommendations for supportive care and close follow-up with PCP. Return precautions for symptomology discussed. Patient verbalized understanding Departure Impression Primary Impression: Trapezius strain Qualified Codes: S46.812A - Strain of other muscles, fascia and tendons at shoulder and upper arm level, left arm, initial encounter Additional Impression: Left shoulder pain Qualified Codes: M25.512 - Pain in left shoulder Disposition: 01 HOME, SELF-CARE Condition: Stable Departure-Patient Inst. Decision time for Depature: 16:55 Referrals: AMADOU ROGERS DO (PCP/Family) Primary Care Physician Patient Instructions: Shoulder Pain (DC), Muscle Strain ED Scripts Cyclobenzaprine HCl (Cyclobenzaprine HCl) 10 Mg Tablet 10 MG PO TID PRN for SPASMS for 5 Days, #20 TAB Prov: SON NAIDU APRN 12/31/21 SON NAIDU APRN Dec 31, 2021 17:01
[2021-12-31 17:05] VITALS: BP 137/78
== END 2021-12-31 17:06 | disposition home or self-care (01) ==
LOC: EDUNIT# 15:19 → ER 15:22
DX: S46.812A Strain of other muscles, fascia and tendons at shoulder and upper arm level, left arm, initial encounter (principal); F17.210 Nicotine dependence, cigarettes, uncomplicated; X58.XXXA Exposure to other specified factors, initial encounter; Y92.59 Other trade areas as the place of occurrence of the external cause; Y99.0 Civilian activity done for income or pay
CPT/HCPCS: 73030

== ENCOUNTER 2022-02-02 05:37 | Outpatient (CLI) | payer MEDICARE ==
[~2022-02-02] VITALS: Ht 187.9 cm; Wt 118.4 kg
[~2022-02-02 05:37] MED LIST changes: +CLOP-31 PO; -CLOP75TA69 PO
[2022-02-02] MEDS ORDERED: HYDR12.56 PO (15:27)
[2022-02-02] MEDS ORDERED: TMSL.4C PO (15:27)
[2022-02-02] MEDS ORDERED: METF-397 PO (15:27)
== END 2022-02-02 15:56 | disposition home or self-care (01) ==
LOC: PREOP 05:37
PROVIDERS: ATTEND Surgery
DX: Z01.818 Encounter for other preprocedural examination (principal)

== ENCOUNTER 2022-02-09 12:44 | Day surgery (SDC) | payer MEDICARE ==
[2022-02-09] VITALS (10 sets, daily range): BP systolic 118–171; BP diastolic 64–91
[~2022-02-09] VITALS: Ht 187.9 cm; Wt 118.4 kg
[~2022-02-09 12:44] MED LIST changes: +HYDR12.56 PO; +TMSL.4C PO
[2022-02-09] MEDS ORDERED: LIDOCAINE PF 2% 5 ML (XYLOCAINE) VIAL ONE (13:34)
[2022-02-09] MEDS ORDERED: proPOfol 200 MG/20 ML (DIPRIVAN) VIAL IV ONE (13:34)
[2022-02-09] MEDS ORDERED: SEVOFLURANE (ULTANE) 15 ML INHAL SOLN ONE (13:34)
[2022-02-09] MEDS ORDERED: ONDANSETRON 4 MG/2 ML (SDV) Z0FRAN ONE (13:34)
[2022-02-09] MEDS ORDERED: MIDAZOLAM 2 MG/2 ML (VERSED) VIAL ONE (13:35)
[2022-02-09] MEDS ORDERED: fentaNYL INJ 100 MCG/2 ML AMP ONE (13:35)
[2022-02-09] MEDS ORDERED: LACTATED RINGERS 1,000 ML IV PRN (13:45)
[2022-02-09] MEDS ORDERED: CLINDAMYCIN 600 MG/50 ML IVPB 50 ML IV ONE (13:45)
[2022-02-09] MEDS ORDERED: LIDOCAINE/EPI 1%-1:100,000 (XYLOCAINE) 30ML IJ ONE (15:07)
--- NOTE | 2022-02-09 15:09 | Discharge Inst-Simple/Standard ---
Discharge Inst-Standard Patient Instructions/Follow Up Plan of Care/Instructions/FU: 12-14 days Perico Activity as Tolerated: No Discharge Diet: Regular Diet Other Inst to Patient Follow up Appt: Make appointment for 12-14 days. Instructions: No strenuous activity. May shower in 24 hours, no tub bath or soaking. Use incentive spirometer at home as directed. No Smoking Skin/Wound Care: Keep area clean and dry. Change bandages daily and as needed. Symptoms to Report: Appetite Changes, Extremity Discoloration, Numbness/Tingling, Swelling Increased, Bleeding Excessive, Eyesight Changes, Pain Increased, Urine Color Change, Constipation(Persistent), Fever over 101 degree F, Pain/Pressure in chest, Urinating Difficulty, Cough Up/Vomit Blood, Heart Beat Irreg/Pounding, Pain/Pressure in jaw, Vaginal Bleeding Increase, Cramps in feet or legs, Lightheadedness, Pain/Pressure in shoulder, Diarrhea(Persistent), Memory Changes Suddenly, Questions/Concerns, Weight gain consecutive days, Dizziness/Fainting, Nausea/Vomiting, Shortness of Breath, Weight gain over 2 pounds If questions or concerns contact your physician Or seek help at emergency department. CHRISTINE MURRAY DO Feb 09, 2022 15:09
[2022-02-09] MEDS ORDERED: ONDANSETRON 4 MG/2 ML (SDV) Z0FRAN IVP PRN (15:30)
[2022-02-09] MEDS ORDERED: morphine INJ 10 MG/ML 1ML (SYR OR VIAL) IVP ONE (15:30)
--- NOTE | 2022-02-10 02:57 | OPERATIVE REPORT ---
DATE OF SERVICE: 02/09/2022 PREOPERATIVE DIAGNOSIS: Cyst of back and base of neck. POSTOPERATIVE DIAGNOSIS: Cyst of back and base of neck. PROCEDURE: Excision of cyst of back 4.5 x 3 x 1.25 cm and base of neck 2.5 x 1.25 cm. SURGEON: Christine River DO ANESTHESIA: General. ESTIMATED BLOOD LOSS: Minimal. COMPLICATIONS: None. INDICATIONS: The patient is a 56-year-old male with two cysts, he wishes to have removed. He understands risks and benefits of procedure and wishes to proceed. Consent was signed and on the chart. DESCRIPTION OF PROCEDURE: The patient was taken to the operating suite, prepped and draped in sterile fashion. A time-out was performed. A 15 blade scalpel was used to make a skin incision over the cyst and this was then dissected around and cautery was used to start dividing the cyst from the subcutaneous tissue and achieve hemostasis. Continued until the cyst was able to be completely removed. The wound was then irrigated with copious amounts of irrigation and then the skin was then closed using 3-0 Prolene in a simple running fashion. The cyst of the neck was then palpated. The 15 blade scalpel was used to make a skin incision over the area of the palpable cyst. The portion of skin was removed as well and the skin and subcutaneous tissues including the cyst were removed. Wound was irrigated. Hemostasis was achieved. The skin was then closed using 3-0 Prolene in a simple running fashion. The patient tolerated the procedure well without any complications, taken to recovery room in stable condition. Job ID: [id number] DocumentID: [id number] Dictated Date: 02/10/2022 00:07:53 Food Porter Date: 02/10/2022 02:56:00 Dictated By: CHRISTINE RIVER DO [facility] CENTERWolf
== END 2022-02-09 17:35 | disposition home or self-care (01) ==
LOC: SDC 12:44
PROVIDERS: ATTEND Surgery
DX: L72.0 Epidermal cyst (principal); E66.9 Obesity, unspecified; Z68.33 Body mass index [BMI] 33.0-33.9, adult; F17.210 Nicotine dependence, cigarettes, uncomplicated; Z79.02 Long term (current) use of antithrombotics/antiplatelets
CPT/HCPCS: 82947; 87081; 88304

== ENCOUNTER → 2022-03-24 | Outpatient (CLI) | payer MEDICARE ==
[~2022-03-24] MED LIST changes: +BENZ100C18 PO
--- NOTE | 2022-03-24 15:37 | Diagnostic Imaging Report ---
CT CHEST SCREENING WO TECHNIQUE: Low-dose unenhanced CT of the chest was performed according to the screening protocol. Coronal MIP and sagittal MPR reformats are created. Automatic exposure controls were utilized to keep dose as low as reasonably achievable. INDICATION: Current smoker. 63-yaes-acag history of smoking. COMPARISON: 03/23/2021. FINDINGS: Pulmonary findings: No abnormality in the trachea. Mild centrilobular emphysema is noted. There are no suspicious pulmonary nodules. No pneumonia or edema. Linear atelectasis is present in the medial aspect of the right lung base. Extrapulmonary findings: No axillary or mediastinal lymphadenopathy. Heart is normal in size with moderate coronary calcifications. No pericardial or pleural effusion. Normal-caliber thoracic aorta. Stable low-attenuation nodule with thickening of the adrenal glands that is most suggestive of adrenal hyperplasia. No worrisome focal osseous lesions. IMPRESSION: 1. Baseline screening CT is negative for features of clinically active lung cancer. 2. Moderate coronary artery calcification. Lung-RADS category: 1 - Negative Recommendations: Continued annual screening with low-dose CT in 12 months. Dictated by: Dictated on workstation # [id number]
== END ==
LOC: RAD 10:46
PROVIDERS: ATTEND Internal Medicine
DX: Z12.2 Encounter for screening for malignant neoplasm of respiratory organs (principal); I25.10 Atherosclerotic heart disease of native coronary artery without angina pectoris; Z87.891 Personal history of nicotine dependence
CPT/HCPCS: 71271

== ENCOUNTER 2022-03-25 17:39 | Emergency (ER) | payer MEDICARE ==
[~2022-03-25] VITALS: Ht 187.9 cm; Wt 118.4 kg
[~2022-03-25 17:39] MED LIST changes: -BENZ100C18 PO
[2022-03-25 17:45] VITALS: BP 130/84
[2022-03-25 18:05] LABS: BASOPHILS # (AUTO) 0.1 10^3/uL (0.0-0.1); BASOPHILS % (AUTO) 1 % (0-10); EOSINOPHILS # (AUTO) 0.6 10^3/uL (0.0-0.3); EOSINOPHILS % (AUTO) 6 % (0-10); HEMATOCRIT 46 % (40-54); HEMOGLOBIN 15.2 g/dL (13.3-17.7); LYMPHOCYTES # (AUTO) 2.7 10^3/uL (1.0-4.0); LYMPHOCYTES % (AUTO) 30 % (12-44); MEAN CORPUSCULAR HEMOGLOBIN 32 pg (25-34); MEAN CORPUSCULAR HGB CONC 33 g/dL (32-36); MEAN CORPUSCULAR VOLUME 95 fL (80-99); MEAN PLATELET VOLUME 9.4 fL (9.0-12.2); MONOCYTES # (AUTO) 0.4 10^3/uL (0.0-1.0); MONOCYTES % (AUTO) 5 % (0-12); NEUTROPHILS # (AUTO) 5.2 10^3/uL (1.8-7.8); NEUTROPHILS % (AUTO) 58 % (42-75); PLATELET COUNT 212 10^3/uL (130-400); WHITE BLOOD COUNT 8.9 10^3/uL (4.3-11.0)
[2022-03-25 18:16] LABS: ALBUMIN 3.7 GM/DL (3.2-4.5)
[2022-03-25 18:17] LABS: POTASSIUM 3.4 MMOL/L (3.6-5.0)
[2022-03-25 18:18] LABS: CALCIUM 8.9 MG/DL (8.5-10.1)
[2022-03-25 18:19] LABS: TOTAL PROTEIN 6.7 GM/DL (6.4-8.2)
[2022-03-25 18:21] LABS: BILIRUBIN,TOTAL 0.7 MG/DL (0.1-1.0)
--- NOTE | 2022-03-25 18:23 | Diagnostic Imaging Report ---
INDICATION: Cough, currently on abx for pneumonia. TECHNIQUE: Two view chest 6:14 PM. CORRELATION STUDY: 12/13/2020. FINDINGS: Heart size and mediastinum are enlarged and prominent. Vasculature is slightly increased. Largely chronic change about the lung parenchyma. No definitive infiltrate or effusion. Old healed left-sided rib fracture deformities. Slight accentuated thoracic kyphosis. IMPRESSION: Cardiac enlargement without overt failure. Chronic appearing changes about the lung parenchyma. Dictated by: Dictated on workstation # [id number]
[2022-03-25] MEDS ORDERED: BENZ100C18 PO (18:43)
--- NOTE | 2022-03-25 18:43 | ED Cough/URI ---
General Chief Complaint: Cough/Cold/Flu Symptoms Stated Complaint: COUGH | PREVIOUS PNEUMONIA/BRONCHITIS Nursing Triage Note: ARRIVES FROM URGENT CARE WITH A C/O COUGH AND SOB. WAS TOLD AT URGENT CARE HE HAD "FLUID AROUND HIS HEART" Source: patient Exam Limitations: no limitations History of Present Illness Date Seen by Provider: Mar 25, 2022 Time Seen by Provider: 17:45 Initial Comments Patient is a 66-year-old male who presents to the emergency department for evaluation of approximately 3 weeks of cough and shortness of breath. Patient has been seen at the walk-in clinic multiple times. He states he was initially placed on an unknown antibiotic which she finished. He states he did not have much improvement in symptoms. He presented again and was placed on a second antibiotic as well as prednisone. He does not know the name of the second antibiotic either. He is currently taking the second antibiotic and the prednisone. He presented again today to the walk-in clinic where a chest x-ray was performed and he was told he had some "fluid around his heart". Patient was given an outpatient order for labs to be performed in this hospital. He presented to the emergency department due to concern there may be a delay in receiving the laboratory results and a desire for further evaluation. Patient states his cough is mostly nonproductive. He is a current smoker. Denies any chest pain or significant dependent edema. He has not had a fever at any point illness per his report. He states he reportedly tested negative for COVID at the beginning of his symptoms. Allergies and Home Medications Allergies Coded Allergies: Penicillins (Verified Allergy, Unknown, SCRATCH TEST PATIENT WAS RED, 02/02/22) Patient Home Medication List Home Medication List Reviewed: Yes Aspirin (Aspir 81) 81 Mg Tablet.dr, 81 MG PO DAILY, (Reported) Entered as Reported by: KRISTOPHER NORIEGA on 12/03/18 111 Atorvastatin Calcium (Lipitor) 40 Mg Tablet, 40 MG PO DAILY, (Reported) Entered as Reported by: KRISTOPHER NORIEGA on 12/03/18 111 Benzonatate (Tessalon Perles) 100 Mg Capsule, 200 MG PO Q8H PRN for COUGH Prescribed by: Son Naidu on 03/25/22 1843 Clopidogrel Bisulfate (Plavix) 75 Mg Tablet, 75 MG PO DAILY, (Reported) Entered as Reported by: JA ALDRICH on 07/14/18 1159 Hydrochlorothiazide (Hydrochlorothiazide) Unknown Strength Tablet, Unknown Dose PO, (Reported) Entered as Reported by: RIMA MILLER on 02/02/22 152 Hydrocodone Bit/Acetaminophen (Lortab 7.5 Mg Tablet) 1 Ea Tablet, 1 EA PO Q8H PRN for PAIN-MODERATE, (Reported) Entered as Reported by: KRISTOPHER NORIEGA on 12/03/18 111 Meloxicam (Meloxicam) 15 Mg Tablet, 15 MG PO DAILY, (Reported) Entered as Reported by: KRISTOPHER NORIEGA on 12/03/18 111 Metformin HCl (Metformin HCl) 500 Mg Tablet, 500 MG PO UD, (Reported) Entered as Reported by: RIMA MILLER on 02/02/22 152 Tamsulosin HCl (Flomax) 0.4 Mg Cap, 0.4 MG PO DAILY, (Reported) Entered as Reported by: RIMA MILLER on 02/02/22 152 Verapamil HCl (Verapamil ER) 180 Mg Tablet.er, 180 MG PO DAILY, (Reported) Entered as Reported by: KRISTOPHER NORIEGA on 12/03/18 111 Review of Systems Review of Systems Constitutional: no symptoms reported Respiratory: see HPI, cough, short of breath Cardiovascular: no symptoms reported Gastrointestinal: no symptoms reported Genitourinary: no symptoms reported Musculoskeletal: no symptoms reported Skin: no symptoms reported Psychiatric/Neurological: No Symptoms Reported Hematologic/Lymphatic: No Symptoms Reported Immunological/Allergic: no symptoms reported Past Ghflzol-Rglklt-Donzck Hx Patient Social History Tobacco Use?: Yes Tobacco type used: Cigarettes Smoking Status: Current Everyday Smoker Use of E-Cig and/or Vaping dev: No Substance use?: No Alcohol Use?: No Immunizations Up To Date Influenza Vaccine Up-to-Date: Yes; Up-to-Date First/Initial COVID19 Vaccinat: 03/05/20 Second COVID19 Vaccination Jeyson: 03/25/20 Third COVID19 Vaccination Date: 2020 Seasonal Allergies Seasonal Allergies: Yes Past Medical History Surgery/Hospitalization HX: SX: L HIP PMH: TIA, STROKE, CAD, HTN, DIABETES II, GA, PROSTATE ISSUES, ARTHRITIS Surgeries: Yes (BACK-LUMBAR, R ANKLE, GANGLION CYST, LEFT HIP REPLACEMENT) Appendectomy Respiratory: Yes Pulmonary Embolism Currently Using CPAP: No Currently Using BIPAP: No Cardiac: Yes (UNKNOWN HEART ATTACK POSSIBLE 2-3 YEARS AGO WHEN CRACKED RIBS) Heart Attack, High Cholesterol, Hypertension Neurological: Yes (APPROX 2011) TIA Reproductive Disorders: No Genitourinary: Yes Bladder Infection, Kidney Stones Gastrointestinal: No Musculoskeletal: Yes Chronic Back Pain, Fractures Endocrine: Yes Diabetes, Non-Insulin dep Cancer: No Psychosocial: Yes Anxiety Integumentary: No Blood Disorders: No Physical Exam Vital Signs - First Documented Capillary Refill : Less Than 3 Seconds Height: 6'2.00" Weight: 264lbs. oz. 119.235370wz; 33.00 BMI Method:Stated General Appearance: WD/WN, no apparent distress HEENT: PERRL/EOMI, normal ENT inspection, TMs normal, pharynx normal Neck: non-tender, full range of motion, supple, normal inspection Respiratory: chest non-tender, lungs clear, normal breath sounds Cardiovascular: regular rate, rhythm Gastrointestinal: normal bowel sounds, non tender, soft Neurologic/Psychiatric: no motor/sensory deficits, alert, normal mood/affect, oriented x 3 Skin: normal color, warm/dry Progress/Results/Core Measures Suspected Sepsis SIRS Temperature: Pulse: 67 Respiratory Rate: 18 Laboratory Tests 03/25/22 17:55: White Blood Count 8.9 Blood Pressure 130 /84 Mean: 99 Laboratory Tests 03/25/22 17:55: Creatinine 1.00, Platelet Count 212, Total Bilirubin 0.7 Results/Orders Lab Results Laboratory Tests Test 03/25/22 17:55 Range/Units White Blood Count 8.9 4.3-11.0 10^3/uL Red Blood Count 4.81 4.30-5.52 10^6/uL Hemoglobin 15.2 13.3-17.7 g/dL Hematocrit 46 40-54 % Mean Corpuscular Volume 95 80-99 fL Mean Corpuscular Hemoglobin 32 25-34 pg Mean Corpuscular Hemoglobin Concent 33 32-36 g/dL Red Cell Distribution Width 12.6 10.0-14.5 % Platelet Count 212 130-400 10^3/uL Mean Platelet Volume 9.4 9.0-12.2 fL Immature Granulocyte % (Auto) 0 % Neutrophils (%) (Auto) 58 42-75 % Lymphocytes (%) (Auto) 30 12-44 % Monocytes (%) (Auto) 5 0-12 % Eosinophils (%) (Auto) 6 0-10 % Basophils (%) (Auto) 1 0-10 % Neutrophils # (Auto) 5.2 1.8-7.8 10^3/uL Lymphocytes # (Auto) 2.7 1.0-4.0 10^3/uL Monocytes # (Auto) 0.4 0.0-1.0 10^3/uL Eosinophils # (Auto) 0.6 H 0.0-0.3 10^3/uL Basophils # (Auto) 0.1 0.0-0.1 10^3/uL Immature Granulocyte # (Auto) 0.0 0.0-0.1 10^3/uL Sodium Level 136 135-145 MMOL/L Potassium Level 3.4 L 3.6-5.0 MMOL/L Chloride Level 99 98-107 MMOL/L Carbon Dioxide Level 23 21-32 MMOL/L Anion Gap 14 5-14 MMOL/L Blood Urea Nitrogen 20 H 7-18 MG/DL Creatinine 1.00 0.60-1.30 MG/DL Estimat Glomerular Filtration Rate 82 BUN/Creatinine Ratio 20 Glucose Level 238 H 70-105 MG/DL Calcium Level 8.9 8.5-10.1 MG/DL Corrected Calcium 9.1 8.5-10.1 MG/DL Total Bilirubin 0.7 0.1-1.0 MG/DL Aspartate Amino Transf (AST/SGOT) 13 5-34 U/L Alanine Aminotransferase (ALT/SGPT) 20 0-55 U/L Alkaline Phosphatase 78 40-136 U/L Total Protein 6.7 6.4-8.2 GM/DL Albumin 3.7 3.2-4.5 GM/DL My Orders Orders - SON NAIDU BOTTLE LABELER Cbc With Automated Diff (03/25/22 17:58) Comprehensive Metabolic Panel (03/25/22 17:58) Chest Pa/Lat (2 View) (03/25/22 17:58) Iv/Invasive Line Insertion .IV INSERT (03/25/22 17:58) Vital Signs/I&O 03/25/22 03/25/22 17:45 17:45 Temp 36.2 Pulse 67 Resp 18 B/P (MAP) 130/84 (99) Pulse Ox 94 O2 Delivery Room Air Room Air Capillary Refill : Less Than 3 Seconds Blood Pressure Mean: 99 Progress Note : Progress Note Patient is nontoxic and well-hydrated on exam. No adventitious lung sounds or increased work of breathing noted. Vital signs are reassuring. Patient was not hypoxic even after walking to the ED room from the waiting room. No significant dependent edema noted. Patient is awake alert and oriented answers questions appropriately. Orders placed for CBC, CMP, IV insertion, and two-view chest x-ray. CBC is unremarkable. Specifically there is no leukocytosis even though patient is currently on prednisone as prescribed by the walk-in clinic according to patient. CMP reveals no significant metabolic derangement. Two view chest x- ray reveals some mild cardiac enlargement but there is no evidence of infiltrate or other concerning findings. I discussed importance of continue the antibiotic as prescribed by the walk-in clinic. We also discussed importance of following up with PCP for further evaluation. Return precautions for urgent symptomology discussed. Patient and spouse verbalized understanding. Departure Impression Primary Impression: URI (upper respiratory infection) Qualified Codes: J06.9 - Acute upper respiratory infection, unspecified Disposition: 01 HOME, SELF-CARE Condition: Stable Departure-Patient Inst. Decision time for Depature: 18:40 Referrals: AMADOU ROGERS DO (PCP/Family) Primary Care Physician Patient Instructions: Upper Respiratory Infection ED Add. Discharge Instructions: Continue taking your antibiotics as prescribed by the urgent care. Please return to the emergency department for any significant increase in your shortness of breath, crushing chest pain, or any other concerning symptoms. All discharge instructions reviewed with patient and/or family. Voiced understanding. Scripts Benzonatate (TESSALON PERLES) 100 Mg Capsule 200 MG PO Q8H PRN for COUGH for 5 Days, #15 CAP 0 Refills Prov: SON NAIDU BOTTLE LABELER 03/25/22 SON NAIDU BOTTLE LABELER Mar 25, 2022 18:43
== END 2022-03-25 18:48 | disposition home or self-care (01) ==
LOC: EDUNIT# 17:39 → ER 17:42
DX: J06.9 Acute upper respiratory infection, unspecified (principal); F17.210 Nicotine dependence, cigarettes, uncomplicated
CPT/HCPCS: 36415; 71046; 80053; 83880; 85025; 99282

== ENCOUNTER → 2022-07-31 | Outpatient (CLI) | payer MEDICARE ==
[~2022-07-31] MED LIST changes: +BENZ100C18 PO
== END ==
LOC: CARD 09:00
PROVIDERS: ATTEND Internal Medicine
DX: R00.2 Palpitations (principal); Z53.9 Procedure and treatment not carried out, unspecified reason

== ENCOUNTER → 2022-08-01 | Outpatient (CLI) | payer MEDICARE ==
[~2022-08-01] MED LIST changes: +CATHETER FLUSH 10 ML SYR IVP PRN; +REGADENOSON 0.4 MG/5 ML SYR (LEXISCAN) IV ONE
[2022-08-01 07:52] VITALS: BP 136/77
--- NOTE | 2022-08-01 19:29 | Cardiology Stress Test Report ---
Stress Test Report Date of Procedure/Referring: Date of Procedure: Aug 01, 2022 PCP Amadou Wisdom DO Admitting Physician Admitting Physician: Attending Physician: Amadou Wisdom DO Baseline Vital Signs Vital Signs Date Time Temp Pulse Resp B/P (MAP) Pulse Ox O2 Delivery O2 Flow Rate FiO2 08/01/22 07:52 66 136/77 (96) 92 Summary: Patient receive a resting and stress dose of Myoview, images were acquired and reviewed in the short axis view, horizontal long axis view and vertical long axis view. TID: 1.07 SSS: 10 SDS: 2 EF: 52 Fixed defect involving the whole inferior wall and inferolateral wall and inferior septum Normal left ventricular size, ejection fraction 52%, inferior wall lauren normally Copy Copies To 1: AMADOU WISDOM BASHAR J MD Aug 01, 2022 19:29
== END ==
LOC: CARD 06:29
PROVIDERS: ATTEND Internal Medicine
DX: I25.10 Atherosclerotic heart disease of native coronary artery without angina pectoris (principal)
CPT/HCPCS: 78452; 93017; A9502

== ENCOUNTER 2022-09-26 14:08 | Inpatient (IN) | payer MEDICARE ==
[~2022-09-26] VITALS: Ht 188 cm; Wt 124.7 kg
[~2022-09-26 14:08] MED LIST changes: -CATHETER FLUSH 10 ML SYR IVP PRN; -REGADENOSON 0.4 MG/5 ML SYR (LEXISCAN) IV ONE
--- NOTE | 2022-09-26 14:29 | ED Respiratory ---
General Chief Complaint: Respiratory Problems Stated Complaint: DIFFICULTY BREATHING | LOW O2 | ELEVATED PULSE Nursing Triage Note: AMBULATES TO ED ROOM 5 WITH C/O INCREASED SOB WITH EXERTION AND AT REST. PATIENT WEARS A C PAP WITH 2 LITERS AT NOC. Source: patient Exam Limitations: no limitations (TRUDY SWENSON) History of Present Illness Date Seen by Provider: Sep 26, 2022 Time Seen by Provider: 14:26 Initial Comments Patient is a 66-year-old male with a history of peripheral vascular disease, coronary artery disease, hypertension, type II prediabetic, dyslipidemia who presents ED with shortness of breath. Patient states he woke up around 730 this morning. Patient felt dizzy. Patient states with ambulation noted increased shortness of breath. Took his oxygen at home which read around 88%. Does wear CPAP and 2 L oxygen chronically at night. Denies of any cough, chest pain or abdominal pain with this shortness of breath. Patient states with any type exertion noted increased shortness of breath. Patient on arrival oxygen 86% on room air. Was placed on 2 L. Patient denies of any recent travels or surgeries. Patient does not report any increased leg swelling. History of peripheral vascular disease in his lower extremities. Denies of any vascular stents. Patient barrel maker is Dr. Peguero. States he had a stress test performed in July. Denies of any current headache, visual changes, sore throat, ear pain, chills, body aches or feeling feverish. Patient does take Plavix. History of smoking (TRUDY SWENSON) Allergies and Home Medications Allergies Coded Allergies: Penicillins (Verified Allergy, Unknown, SCRATCH TEST PATIENT WAS RED, 09/26/22) Patient Home Medication List Home Medication List Reviewed: Yes (TRUDY SWENSON) Aspirin (Aspir 81) 81 Mg Tablet.dr, 81 MG PO DAILY, (Reported) Entered as Reported by: KRISTOPHER NORIEGA on 12/03/181116 Last Action: Reviewed Atorvastatin Calcium (Lipitor) 40 Mg Tablet, 40 MG PO DAILY, (Reported) Entered as Reported by: KRISTOPHER NORIEGA on 12/03/181116 Last Action: Reviewed Bupropion HCl (Bupropion HCl Sr) 150 Mg Tablet.er, 150 MG PO BID, (Reported) Entered as Reported by: SANTI BRAND on 09/26/221800 Last Action: New Order Clopidogrel Bisulfate (Plavix) 75 Mg Tablet, 75 MG PO DAILY, (Reported) Entered as Reported by: JA ALDRICH on 07/14/18 115 Last Action: Reviewed Hydrochlorothiazide (Hydrochlorothiazide) Unknown Strength Tablet, Unknown Dose PO, (Reported) Entered as Reported by: RIMA MILLER on 02/02/221526 Last Action: Reviewed Metformin HCl (Metformin HCl) 500 Mg Tablet, 500 MG PO UD, (Reported) Entered as Reported by: RIMA MILLER on 02/02/221526 Last Action: Reviewed Methylprednisolone (Methylprednisolone Dose Pack) 4 Mg Tab.ds.pk, 4 MG PO UD, (Reported) Entered as Reported by: SANTI BRAND on 09/26/221800 Last Action: New Order Metoprolol Succinate (Metoprolol Succinate) 25 Mg Tab.er.24h, 25 MG PO DAILY, (Reported) Entered as Reported by: SANTI BRAND on 09/26/221800 Last Action: New Order Pramipexole Di-HCl (Pramipexole Dihydrochloride) 0.5 Mg Tablet, 0.5 MG PO DAILY, (Reported) Entered as Reported by: SANTI BRAND on 09/26/221800 Last Action: New Order Sulfamethoxazole/Trimethoprim (Sulfamethoxazole-Tmp Ss Tablet) 400 Mg-80 Mg Tablet, 1 EACH PO BID, (Reported) Entered as Reported by: SANTI BRAND on 09/26/221800 Last Action: New Order Tamsulosin HCl (Flomax) 0.4 Mg Cap, 0.4 MG PO DAILY, (Reported) Entered as Reported by: RIMA MILLER on 02/02/221526 Last Action: Reviewed Verapamil HCl (Verapamil ER) 180 Mg Tablet.er, 180 MG PO DAILY, (Reported) Entered as Reported by: KRISTOPHER NORIEGA on 12/03/18 111 Last Action: Continued Discontinued Medications Benzonatate (Tessalon Perles) 100 Mg Capsule, 200 MG PO Q8H PRN for COUGH Discontinued Reason: No Longer Taking Prescribed by: Son Naidu on 03/25/22 9522 Last Action: Discontinued Hydrocodone Bit/Acetaminophen (Lortab 7.5 Mg Tablet) 1 Ea Tablet, 1 EA PO Q8H PRN for PAIN-MODERATE, (Reported) Discontinued Reason: No Longer Taking Entered as Reported by: KRISTOPHER NORIEGA on 12/03/181115 Last Action: Discontinued Meloxicam (Meloxicam) 15 Mg Tablet, 15 MG PO DAILY, (Reported) Discontinued Reason: No Longer Taking Entered as Reported by: KRISTOPHER NORIEGA on 12/03/181115 Last Action: Discontinued Review of Systems Review of Systems Constitutional: No chills, No diaphoresis, No fever, No malaise, No weakness EENTM: No ear pain, No blurred vision Respiratory: No cough; short of breath Cardiovascular: No chest pain Gastrointestinal: No abdominal pain, No diarrhea, No nausea, No vomiting Genitourinary: No decreased output, No discharge Musculoskeletal: No back pain, No joint pain Skin: No change in color, No change in hair/nails (TRUDY SWENSON) All Other Systems Reviewed Negative Unless Noted: Yes (TRUDY SWENSON) Past Amsdldc-Nkvhbd-Uqhayo Hx Patient Social History Tobacco Use?: Yes Tobacco type used: Cigarettes Smoking Status: Current Everyday Smoker Use of E-Cig and/or Vaping dev: No Substance use?: No Alcohol Use?: Yes Alcohol type: Beer Alcohol Frequency: Rarely Pt feels they are or have been: No (TRUDY SWENSON) Immunizations Up To Date Influenza Vaccine Up-to-Date: Yes; Up-to-Date First/Initial COVID19 Vaccinat: 03/05/20 Second COVID19 Vaccination Jeyson: 03/25/20 Third COVID19 Vaccination Date: 2020 (TRUDY SWENSON) Seasonal Allergies Seasonal Allergies: Yes (TRUDY SWENSON) Past Medical History Surgery/Hospitalization HX: SX: L HIP PMH: TIA, STROKE, CAD, HTN, DIABETES II, [place], PROSTATE ISSUES, ARTHRITIS Surgeries: Yes (BACK-LUMBAR, R ANKLE, GANGLION CYST, LEFT HIP REPLACEMENT) Appendectomy Respiratory: Yes Pulmonary Embolism Currently Using CPAP: No Currently Using BIPAP: No Cardiac: Yes (UNKNOWN HEART ATTACK POSSIBLE 2-3 YEARS AGO WHEN CRACKED RIBS) Heart Attack, High Cholesterol, Hypertension Neurological: Yes (APPROX 2011) TIA Reproductive Disorders: No Genitourinary: Yes Bladder Infection, Kidney Stones Gastrointestinal: No Musculoskeletal: Yes Chronic Back Pain, Fractures Endocrine: Yes Diabetes, Non-Insulin dep Cancer: No Psychosocial: Yes Anxiety Integumentary: No Blood Disorders: No (TRUDY SWENSON) Physical Exam Vital Signs - First Documented 09/26/22 14:12 Pulse Ox 95 O2 Delivery Nasal Cannula O2 Flow Rate 2.00 (CHRISTIAN WALLIS MD) Capillary Refill : Less Than 3 Seconds (TRUDY SWENSON) Height: 6'2.00" Weight: 264lbs. oz. 119.042519um; 35.00 BMI Method:Stated General Appearance: WD/WN, no apparent distress Eyes: Bilateral Eye Normal Inspection, Bilateral Eye PERRL, Bilateral Eye EOMI HEENT: PERRL/EOMI, normal ENT inspection, TMs normal, pharynx normal Neck: non-tender, full range of motion, supple Respiratory: chest non-tender, lungs clear, normal breath sounds, no respiratory distress, no accessory muscle use Cardiovascular: regular rate, rhythm, no edema, no gallop, no JVD Gastrointestinal: normal bowel sounds, non tender, soft, no organomegaly Extremities: other (No significant swelling lower extremities. +2 dorsalis pedis bilateral. Warm extremities) Neurologic/Psychiatric: criminal legal assistant II-XII nml as tested, no motor/sensory deficits, alert, normal mood/affect, oriented x 3 Skin: other (Stasis dermatitis bilateral lower extremity.) (TRUDY SWENSON) Progress/Results/Core Measures Suspected Sepsis SIRS Temperature: Pulse: 95 Respiratory Rate: 20 Laboratory Tests 09/26/22 14:20: White Blood Count 8.3 Blood Pressure 169 /98 Mean: 121 Laboratory Tests 09/26/22 14:20: Creatinine 1.20, INR Comment 1.0, Platelet Count 159, Total Bilirubin 1.4H (TRUDY SWENSON) Results/Orders Lab Results Laboratory Tests Test 09/26/22 14:20 09/26/22 14:26 Range/Units White Blood Count 8.3 4.3-11.0 10^3/uL Red Blood Count 5.38 4.30-5.52 10^6/uL Hemoglobin 17.4 13.3-17.7 g/dL Hematocrit 52 40-54 % Mean Corpuscular Volume 96 80-99 fL Mean Corpuscular Hemoglobin 32 25-34 pg Mean Corpuscular Hemoglobin Concent 34 32-36 g/dL Red Cell Distribution Width 12.3 10.0-14.5 % Platelet Count 159 130-400 10^3/uL Mean Platelet Volume 9.9 9.0-12.2 fL Immature Granulocyte % (Auto) 0 % Neutrophils (%) (Auto) 86 H 42-75 % Lymphocytes (%) (Auto) 11 L 12-44 % Monocytes (%) (Auto) 2 0-12 % Eosinophils (%) (Auto) 0 0-10 % Basophils (%) (Auto) 0 0-10 % Neutrophils # (Auto) 7.1 1.8-7.8 10^3/uL Lymphocytes # (Auto) 0.9 L 1.0-4.0 10^3/uL Monocytes # (Auto) 0.2 0.0-1.0 10^3/uL Eosinophils # (Auto) 0.0 0.0-0.3 10^3/uL Basophils # (Auto) 0.0 0.0-0.1 10^3/uL Immature Granulocyte # (Auto) 0.0 0.0-0.1 10^3/uL Neutrophils % (Manual) 85 % Lymphocytes % (Manual) 11 % Monocytes % (Manual) 3 % Basophils % (Manual) 1 % Platelet Estimate ADEQUATE Blood Morphology Comment NORMAL Prothrombin Time 13.8 12.2-14.7 SEC INR Comment 1.0 0.8-1.4 Activated Partial Thromboplast Time 27 24-35 SEC D-Dimer 13.01 H 0.00-0.49 UG/ML Sodium Level 136 135-145 MMOL/L Potassium Level 3.8 3.6-5.0 MMOL/L Chloride Level 103 98-107 MMOL/L Carbon Dioxide Level 21 21-32 MMOL/L Anion Gap 12 5-14 MMOL/L Blood Urea Nitrogen 14 7-18 MG/DL Creatinine 1.20 0.60-1.30 MG/DL Estimat Glomerular Filtration Rate 66 BUN/Creatinine Ratio 12 Glucose Level 221 H 70-105 MG/DL Calcium Level 9.2 8.5-10.1 MG/DL Corrected Calcium 9.2 8.5-10.1 MG/DL Magnesium Level 2.0 1.6-2.4 MG/DL Total Bilirubin 1.4 H 0.1-1.0 MG/DL Aspartate Amino Transf (AST/SGOT) 14 5-34 U/L Alanine Aminotransferase (ALT/SGPT) 15 0-55 U/L Alkaline Phosphatase 96 40-136 U/L Myoglobin 71.2 10.0-92.0 NG/ML Troponin I < 0.028 <0.028 NG/ML B-Type Natriuretic Peptide 222.1 H <100.0 PG/ML Total Protein 7.7 6.4-8.2 GM/DL Albumin 4.0 3.2-4.5 GM/DL SARS-CoV-2 RNA (RT-PCR) Not Detected Not Detecte (CHRISTIAN WALLIS MD) Vital Signs/I&O 09/26/22 09/26/22 09/26/22 09/26/22 14:12 14:14 14:14 17:13 Temp 36.5 36.3 Pulse 95 95 Resp 20 B/P (MAP) 169/98 (121) 138/93 (108) Pulse Ox 95 95 94 O2 Delivery Nasal Cannula Nasal Cannula Nasal Cannula O2 Flow Rate 2.00 2.00 2.00 2.00 09/26/22 17:15 Temp 36.0 Pulse 88 Resp 18 B/P (MAP) 153/79 Pulse Ox 95 O2 Delivery Nasal Cannula O2 Flow Rate 3.00 (CHRISTIAN WALLIS MD) Vital Signs/I&O Capillary Refill : Less Than 3 Seconds (TRUDY SWENSON) Blood Pressure Mean: 121 ECG Comment Sinus rhythm, right axis deviation, right bundle branch block, 93 bpm, QRS duration 174 MS, QTc 434 MS (TRUDY SWENSON) Departure Communication (PCP) MinuteReviewed previous ER visits, H&P, lab testing. Patient presents to ED with shortness of breath. Started around 730 this morning. Appears to occur with exertion with associated dizziness. On arrival 86 on room air. Patient Was placed on 2 L with improvement. Chronically wears 2 L oxygen at night with CPAP for DOMINGA. History of peripheral vascular disease currently on Plavix. Denies of any specific leg pain at this time. Denies of any chest pain with the shortness of breath. Denies cough. Subtle wheezing noted lower lung serna. Patient received Solu-Medrol 120 mgand a DuoNeb breathing treatment and states he feels somewhat better. He is afebrile with a heart rate between 90 to 100 bpm. EKG and cardiac work-up was initiated. EKG did note sinus rhythm with right axis deviation, right bundle branch block. Patient was normotensive. Patient resting comfortably. CBC shows normal white blood count, hemoglobin and platelets. Chemistry grossly unremarkable. Normal troponin. Slight increase in BNP at around 200. Chest x-ray concern for opacity in right lung. Patient did have elevated D-dimer at 13. History of PE back in 1992. Does take Plavix daily. 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 There is no saddle embolus or abnormal venous reflux however there is an increased RV to LV ratio. Patient follows barrel maker Dr. Rosado. Consulted regarding today's results. Recommend starting on oral Eliquis 10 mg. He will consult. Patient was discussed with hospitalist Dr. Mullins who agreed to accept patient at this time. Patient will be admitted to the ICU. Patient is resting comfortably. No acute respiratory distress. CT angio of the chest was negative for pneumonia. (TRUDY SWENSON) Impression Primary Impression: Pulmonary embolism Disposition: ADMITTED INPATIENT Condition: Stable Admissions Decision to Admit Reason: Admit from ER (General) Decision to Admit/Date: Sep 26, 2022 Time/Decision to Admit Time: 16:01 (TRUDY SWENSON) Departure-Patient Inst. Referrals: AMADOU ROGERS DO (PCP/Family) Primary Care Physician ATTENDING PHYSICIAN NOTE: I was physically present as attending physician in the emergency department during the care of this patient, but I was not directly involved in the decision making or delivery of care for this patient. (CHRISTIAN WALLIS MD) TRUDY SWENSON Sep 26, 2022 14:29 CHRISTIAN WALLIS MD Sep 27, 2022 12:03
[2022-09-26 14:30] LABS: BASOPHILS % (AUTO) 0 % (0-10); EOSINOPHILS % (AUTO) 0 % (0-10); HEMATOCRIT 52 % (40-54); HEMOGLOBIN 17.4 g/dL (13.3-17.7); LYMPHOCYTES # (AUTO) 0.9 10^3/uL (1.0-4.0); LYMPHOCYTES % (AUTO) 11 % (12-44); MEAN CORPUSCULAR HEMOGLOBIN 32 pg (25-34); MEAN CORPUSCULAR HGB CONC 34 g/dL (32-36); MEAN CORPUSCULAR VOLUME 96 fL (80-99); MEAN PLATELET VOLUME 9.9 fL (9.0-12.2); MONOCYTES # (AUTO) 0.2 10^3/uL (0.0-1.0); MONOCYTES % (AUTO) 2 % (0-12); NEUTROPHILS # (AUTO) 7.1 10^3/uL (1.8-7.8); NEUTROPHILS % (AUTO) 86 % (42-75); PLATELET COUNT 159 10^3/uL (130-400); WHITE BLOOD COUNT 8.3 10^3/uL (4.3-11.0)
[2022-09-26] MEDS ORDERED: methylPREDNISolone 40 MG/ML (Solu-MEDROL) VIAL IV ONE (14:30)
[2022-09-26] MEDS ORDERED: RT-ALBUTEROL/IPRATROPIUM 3 ML (DUONEB) VIAL INH ONE (14:30)
[2022-09-26] MEDS ORDERED: ASPIRIN 81 MG CHEWABLE TABLET PO ONE (14:30)
[2022-09-26 14:41] LABS: CHLORIDE 103 MMOL/L (98-107); POTASSIUM 3.8 MMOL/L (3.6-5.0); SODIUM 136 MMOL/L (135-145)
[2022-09-26 14:42] LABS: CALCIUM 9.2 MG/DL (8.5-10.1)
[2022-09-26 14:43] LABS: GLUCOSE 221 MG/DL (70-105); PROTHROMBIN TIME PATIENT 13.8 SEC (12.2-14.7); TOTAL PROTEIN 7.7 GM/DL (6.4-8.2)
[2022-09-26 14:44] LABS: CARBON DIOXIDE 21 MMOL/L (21-32)
[2022-09-26 14:45] LABS: BILIRUBIN,TOTAL 1.4 MG/DL (0.1-1.0)
[2022-09-26 14:47] LABS: ALKALINE PHOSPHATASE 96 U/L (40-136); GFR ESTIMATED 66
[2022-09-26 14:48] LABS: BUN/CREATININE RATIO 12
[2022-09-26 14:50] LABS: ALANINE AMINOTRANSFERASE 15 U/L (0-55)
[2022-09-26 14:53] LABS: BASOPHILS % (MANUAL) 1 %; FIBRIN DEGRADATION PRODUCTS 13.01 UG/ML (0.00-0.49); LYMPHOCYTES % (MANUAL) 11 %; MONOCYTES % (MANUAL) 3 %; NEUTROPHILS % (MANUAL) 85 %; PLATELET ESTIMATE ADEQUATE; RBC MORPH NORMAL
--- NOTE | 2022-09-26 15:06 | Diagnostic Imaging Report ---
CHEST 1 VIEW, AP/PA ONLY INDICATION: Chest pain. COMPARISON: 03/25/2022. FINDINGS: Right basilar patchy pulmonary opacities have developed. Stable enlargement of the cardiac silhouette. No pleural effusion or pneumothorax. Multiple chronic left upper rib fractures are stable. IMPRESSION: 1. New right basilar patchy opacities may be due to pneumonia in the appropriate setting. Alternatively, atelectasis could give this appearance. Dictated by: Dictated on workstation # [id number]
[2022-09-26] MEDS ORDERED: HOLD METFORMIN - RECEIVED CONTRAST 20 ML VIAL IV SCH (15:15)
[2022-09-26] MEDS ORDERED: IOHEXOL 350 MG/ML 100 ML (OMNIPAQUE 350) VIAL IV ONE (15:15)
[2022-09-26] MEDS ORDERED: NS 100 ML (IVPB) BAG IV ONE (15:15)
--- NOTE | 2022-09-26 16:07 | Diagnostic Imaging Report ---
INDICATION: Dyspnea. COMPARISON: No prior angiographic study. It is correlated with nonenhanced CT screening chest 03/24/2022. 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 There is some incompletely occlusive clot in the right greater than left distal main pulmonary arteries, thrombus predominantly incompletely occlusive extends into bilateral lower greater than upper lobe pulmonary arterial branches. The undivided pulmonary segment and pulmonary outflow track were patent. There was prominence of the right ventricle with enlargement of the RV to LV ratio. There is no reflux of venous contrast into the liver however a component of elevated right heart pressures could not be excluded. No saddle embolus. The aorta is patent, nonaneurysmal and nonacute. No findings of pulmonary hemorrhage or lung infarct. There is smooth septal thickening likely interstitial pulmonary edema as a new finding with some mild basilar subsegmental atelectasis. No consolidating pneumonia. No pleural fluid. No pneumothorax. No thoracic lymphadenopathy. There are coronary artery atherosclerotic vascular calcifications. The aorta is intact. 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 There is no saddle embolus or abnormal venous reflux however there is an increased RV to LV ratio. An element of elevated right heart pressure could not be excluded Likely mild interstitial pulmonary edema and some basilar atelectasis. Critical findings relayed by phone to the Emergency Room physician at time of dictation Dictated by: Dictated on workstation # [id number]
[2022-09-26] MEDS ORDERED: APIXABAN 5 MG TABLET PO STA (16:08)
--- NOTE | 2022-09-26 16:30 | Consultation-Cardiology ---
HPI-Cardiology Cardiology Consultation: Date of Consultation 09/26/22 Time Seen by a Provider: 16:10 Date of Admission Attending Physician Yovani Wisdom DO Admitting Physician Admitting Physician: Dr Mullins Attending Physician: Dr Mullins Consulting Physician ZACHERY REIS MD, MA, FACP, FACC, [facility] [place], CCDS Physician requesting consult: Dr Mullins HPI: Chief Complaint: Shortness of breath 66 yo man with chronic shortness of breath with exertion who has been noticing worsening of these symptoms for the last several days and it was even worse today upon which time he decided to come in to the hospital, was found to mildly to moderately hypoxic, and was treated with supplemental oxygen that relieved his symptoms. His d-dimer was elevated and contrasted CT of lungs showed PE. He does not report any cp or palp or syncope. He has chronic discoloration of both legs, somewhat worse in the R leg. He does not report swelling. Review of Systems-Cardiology Review of Systems Constitutional: malaise; No weight loss, No weight gain Eyes: No vision change Ears/Nose/Throat: No nasal drainage, No recent hearing loss, No ulcerations Respiratory: As described under HPI Cardiovascular: As described under HPI Gastrointestinal: No diarrhea, No nausea, No vomiting Genitourinary: No dysuria, No hematuria, No urine frequency changes Musculoskeletal: No back pain, No joint pain Skin: As described under HPI; No rash, No ulcerations Psychiatric/Neurological: No seizure, No focal weakness, No syncope Hematologic: No bleeding abnormalities All Other Systems Reviewed Negative Unless Noted: Yes [id number] Hx Patient Social History Smoking Status: Current Everyday Smoker Alcohol Use?: Yes Pt feels they are or have been: No Tobacco type used: Cigarettes Immunizations Up To Date Date of Influenza Vaccine: Jan 04, 2022 Past Medical History PMH As described under Assessment. Family Medical History Family Medical History: He does not report fam h/o premature CAD Allergies and Home Medications Allergies Coded Allergies: Penicillins (Verified Allergy, Unknown, SCRATCH TEST PATIENT WAS RED, 09/26/22) Patient Home Medication List Home Medication List Reviewed: Yes Aspirin (Aspir 81) 81 Mg Tablet., 81 MG PO DAILY, (Reported) Entered as Reported by: KRISTOPHER NORIEGA on 12/03/18 1117 Atorvastatin Calcium (Lipitor) 40 Mg Tablet, 40 MG PO DAILY, (Reported) Entered as Reported by: KRISTOPHER NORIEGA on 12/03/18 1117 Benzonatate (Tessalon Perles) 100 Mg Capsule, 200 MG PO Q8H PRN for COUGH Prescribed by: Son Naidu on 03/25/22 1843 Clopidogrel Bisulfate (Plavix) 75 Mg Tablet, 75 MG PO DAILY, (Reported) Entered as Reported by: JA ALDRICH on 07/14/18 1159 Hydrochlorothiazide (Hydrochlorothiazide) Unknown Strength Tablet, Unknown Dose PO, (Reported) Entered as Reported by: RIMA MILLER on 02/02/22 1527 Hydrocodone Bit/Acetaminophen (Lortab 7.5 Mg Tablet) 1 Ea Tablet, 1 EA PO Q8H PRN for PAIN-MODERATE, (Reported) Entered as Reported by: KRISTOPHER NORIEGA on 12/03/18 111 Meloxicam (Meloxicam) 15 Mg Tablet, 15 MG PO DAILY, (Reported) Entered as Reported by: KRISTOPHER NORIEGA on 12/03/18 111 Metformin HCl (Metformin HCl) 500 Mg Tablet, 500 MG PO UD, (Reported) Entered as Reported by: RIMA MILLER on 02/02/22 1527 Tamsulosin HCl (Flomax) 0.4 Mg Cap, 0.4 MG PO DAILY, (Reported) Entered as Reported by: RIMA MILLER on 02/02/22 1527 Verapamil HCl (Verapamil ER) 180 Mg Tablet.er, 180 MG PO DAILY, (Reported) Entered as Reported by: KRISTOPHER NORIEGA on 12/03/18 111 Physical Exam-Cardiology Physical Exam Vital Signs/I&O 09/26/22 09/26/22 09/26/22 14:12 14:14 14:14 Temp 36.5 Pulse 95 Resp 20 B/P (MAP) 169/98 (121) Pulse Ox 95 95 O2 Delivery Nasal Cannula Nasal Cannula O2 Flow Rate 2.00 2.00 2.00 Capillary Refill : Less Than 3 Seconds Constitutional: AAO x 3, well-developed, well-nourished, other (appears comfortable, appropriately responsive) HEENT: PERRL, EOMI, hearing is well preserved; No xanthelasmas are seen Neck: carotid pulses are 2 + bilaterally, with good upstrokes Respiratory: No accessory muscle use; chest expansion is symmetric, chest is bilaterally symmetric, other (fair to good, bilateral air entry; prolonged exp) Cardiovascular: regular rate-rhythm, S1 and S2, systolic murmur (soft NO at card base) Gastrointestinal: No tender; soft; No guarding, No rebound; audible bowel sounds Extremities: No clubbing, No cyanosis, No significant edema Neurologic/Psychiatric: oriented x 3, other (moves all limbs equally) Skin: No rash on exposed areas; other (reddish brown discoloration of the skin of the legs, more so on the R) Data Review Labs Laboratory Tests 09/26/22 14:20: White Blood Count 8.3, Red Blood Count 5.38, Hemoglobin 17.4, Hematocrit 52, Mean Corpuscular Volume 96, Mean Corpuscular Hemoglobin 32, Mean Corpuscular Hemoglobin Concent 34, Red Cell Distribution Width 12.3, Platelet Count 159, Me an Platelet Volume 9.9, Immature Granulocyte % (Auto) 0, Neutrophils (%) (Auto) 86H, Lymphocytes (%) (Auto) 11L, Monocytes (%) (Auto) 2, Eosinophils (%) (Auto) 0, Basophils (%) (Auto) 0, Neutrophils # (Auto) 7.1, Lymphocytes # (Auto) 0.9L, Monocytes # (Auto) 0.2, Eosinophils # (Auto) 0.0, Basophils # (Auto) 0.0, Immature Granulocyte # (Auto) 0.0, Neutrophils % (Manual) 85, Lymphocytes % (Manual) 11, Monocytes % (Manual) 3, Basophils % (Manual) 1, Platelet Estimate ADEQUATE, Blood Morphology Comment NORMAL, Prothrombin Time 13.8, INR Comment 1.0, Activated Partial Thromboplast Time 27, D-Dimer 13.01H, Sodium Level 136, Potassium Level 3.8, Chloride Level 103, Carbon Dioxide Level 21, Anion Gap 12, Blood Urea Nitrogen 14, Creatinine 1.20, Estimat Glomerular Filtration Rate 66, BUN/Creatinine Ratio 12, Glucose Level 221H, Calcium Level 9.2, Corrected Calcium 9.2, Magnesium Level 2.0, Total Bilirubin 1.4H, Aspartate Amino Transf (AST/SGOT) 14, Alanine Aminotransferase (ALT/SGPT) 15, Alkaline Phosphatase 96, Myoglobin 71.2, Troponin I < 0.028, B-Type Natriuretic Peptide 222.1H, Total Protein 7.7, Albumin 4.0 09/26/22 14:26: SARS-CoV-2 RNA (RT-PCR) Not Detected Laboratory Tests 09/26/22 14:20 A/P-Cardiology Assessment/Admission Diagnosis Pulmonary embolism Chronic tobacco use and suspected COPD DOMINGA, treated with CPAP and supplemental oxygen CAD - card cath of 2018 showed chronically proximally occluded RCA (collateralized), posterobasal dyskinesis, LVEF 45-50% - MPI of July 2022 showed fixed inferior defect with LVEF 52% Discussion and Recomendations * Anticoagulation for PE as determined by the Hospitalist svce * We recommend Pulm / ICU eval * Echo * We recommend eval for DVT * We recommend eval for conditions causing prothrombotic states (such as malignancies) ZACHERY REIS MD [facility] CCDS Sep 26, 2022 16:30
[2022-09-26] MEDS ORDERED: ONDANSETRON 4 MG (ZOFRAN) ORAL DISSOLVE TAB PO PRN (17:30)
[2022-09-26] MEDS ORDERED: diphenhydrAMINE 25 MG TABLET PO PRN (17:30)
[2022-09-26] MEDS ORDERED: ANTACID SUSP 30 ML UDC (MYLANTA) PO PRN (17:30)
[2022-09-26] MEDS ORDERED: BISACODYL 10 MG SUPPOSITORY PR PRN (17:30)
[2022-09-26] MEDS ORDERED: LACTULOSE SYRUP 10GM/15ML (ENULOSE) 30ML UDC PO PRN (17:30)
[2022-09-26] MEDS ORDERED: CALCIUM CARBONATE 500 MG CHEW TABLET PO PRN (17:30)
[2022-09-26] MEDS ORDERED: ACETAMINOPHEN 325 MG TABLET PO PRN (17:30)
[2022-09-26] MEDS ORDERED: diphenhydrAMINE INJ 50 MG/ML VIAL IVP PRN (17:30)
[2022-09-26] MEDS ORDERED: MILK OF MAGNESIA 400 MG/5 ML 30 ML UDC PO PRN (17:30)
[2022-09-26] MEDS ORDERED: ONDANSETRON 4 MG/2 ML (SDV) Z0FRAN IV PRN (17:30)
[2022-09-26] MEDS ORDERED: MELATONIN 3 MG TABLET PO PRN (17:30)
[2022-09-26] MEDS ORDERED: polyethylene glycoL POWDER 17 GM (MIRALAX) PACK PO PRN (17:30)
[2022-09-26] MEDS ORDERED: TAMSULOSIN 0.4 MG (FLOMAX) CAP PO SCH ×2 (18:00→19:00)
[2022-09-26] MEDS ORDERED: PRAM0.5T9 PO (18:01)
[2022-09-26] MEDS ORDERED: MTP25TSR PO (18:01)
[2022-09-26] MEDS ORDERED: SULF-11 PO (18:01)
[2022-09-26] MEDS ORDERED: METH4TAB10 PO (18:01)
[2022-09-26] MEDS ORDERED: BUPR-105 PO (18:01)
[2022-09-26] MEDS ORDERED: PATIENT MAY USE OWN MEDS, ALL MC SCH (18:15)
--- NOTE | 2022-09-26 18:45 | Tele-ICU Consult ---
History of Present Illness History of Present Illness Date Seen by Provider: Sep 26, 2022 Time Seen by Provider: 18:44 Date of Admission History of Present Illness (Tele-ICU Physician , Progress Note ) Service provided via interactive audio and video telecommunications E-CARE system to a patient admitted to ICU bed in [facility]. Patient is seen today due to persistent need of ICU care Available chart/ vitals / labs / Images reviewed Video assessment done using teleICU camera, rest of exam as per RN Discussed with RN Events overnight : Afebrile hemodynamically stable Respiratory - I/O = Drips: Pressors- no Hospital course: (09/26) 66y/o M admitted with PE A/P Pulmonary embolism, bilateral with significant clot burden - biomarkers - + BNP , neg trop -vitals stable -hypoxia - needs O2 -ECHO pending - started on apixaban po -order US LE Chronic tobacco use and suspected COPD DOMINGA, - CPAP and 2 L oxygen chronically at night.- compliant- to cont CAD - card cath of 2018 showed chronically proximally occluded RCA (collateralized), posterobasal dyskinesis, LVEF 45-50% - MPI of July 2022 showed fixed inferior defect with LVEF 52% Lines : , (Central Line Necessity Reviewed) Sandoval: OG: Nutrition: Analgesia: Anxiety/ delirium VTE Prophylaxis: eliquis Stress Ulcer Prophylaxis: Plans in collaboration with bedside consultants and IM MDs. Discussed with RN to reach out if any questions or concerns Case and care daily discussed on multidisciplinary rounds ( RN, PharmD, Office Mover , Respiratory Therapy, beef cattle farm worker ) A total of 20 minutes of critical care time was devoted to this patient today, required to treat and/or prevent further deterioration of critical care condition ( as above ) . I am remotely monitoring this patient from another state. I am unable to do the bedside exam, and history/physical and pertinent information is taken from other notes in the computer and bedside staff. Allergies and Home Medications Allergies Coded Allergies: Penicillins (Verified Allergy, Unknown, SCRATCH TEST PATIENT WAS RED, 09/26/22) Home Medications Aspirin 81 Mg Tablet.dr, 81 MG PO DAILY, (Reported) Atorvastatin Calcium 40 Mg Tablet, 40 MG PO DAILY, (Reported) Bupropion HCl 150 Mg Tablet.er, 150 MG PO BID, (Reported) Clopidogrel Bisulfate 75 Mg Tablet, 75 MG PO DAILY, (Reported) Metformin HCl 500 Mg Tablet, 500 MG PO UD, (Reported) Methylprednisolone 4 Mg Tab.ds.pk, 4 MG PO UD, (Reported) PER DOSE PACK INSTRUCTIONS Metoprolol Succinate 25 Mg Tab.er.24h, 25 MG PO DAILY, (Reported) Pramipexole Di-HCl 0.5 Mg Tablet, 0.5 MG PO DAILY, (Reported) Sulfamethoxazole/Trimethoprim 400 Mg-80 Mg Tablet, 1 EACH PO BID, (Reported) Tamsulosin HCl 0.4 Mg Cap, 0.4 MG PO DAILY, (Reported) Verapamil HCl 180 Mg Tablet.er, 180 MG PO DAILY, (Reported) Past Medical/Social/Family Hx Patient Social History Tobacco Use?: No Tobacco type used: Cigarettes Smoking Status: Current Everyday Smoker Smokeless Tobacco Frequency: Never a User Use of E-Cig and/or Vaping dev: No Substance use?: No Substance type: Caffeine Substance frequency: Daily Alcohol Use?: Yes Alcohol type: Beer Alcohol Frequency: Rarely Pt stated abuse/neglect: No Immunizations Up To Date Influenza Vaccine Up-to-Date: Yes; Up-to-Date First/Initial COVID19 Vaccinat: 03/05/20 Second COVID19 Vaccination Jeyson: 03/25/20 Current Status Advance Directives: No Communicates: Verbally Primary Language: Greenlandic Preferred Spoken Language: Greenlandic Sensory deficits: Vision impairment Implanted or Applied Medical D: CPAP Review of Systems Constitutional: see HPI, other Focused Exam Height, Weight, BMI Height: 6'2.00" Weight: 264lbs. oz. 119.126731ng; 34.26 BMI Method:Stated Exam Exam Patient acknowledged, consented, and participated in this virtual visit which was conducted using real time audio/video Vital Signs Date Time Temp Pulse Resp B/P (MAP) Pulse Ox O2 Delivery O2 Flow Rate FiO2 09/26/22 18:11 91 09/26/22 18:00 89 147/83 (104) 92 Room Air 09/26/22 17:45 87 126/84 (98) 93 Room Air 09/26/22 17:30 84 123/85 (98) 93 Room Air 09/26/22 17:15 36.0 88 18 153/79 95 Nasal Cannula 3.00 09/26/22 17:13 36.3 95 138/93 (108) 94 Room Air 09/26/22 14:14 2.00 09/26/22 14:14 36.5 95 20 169/98 (121) 95 Nasal Cannula 2.00 09/26/22 14:12 95 Nasal Cannula 2.00 Height & Weight Height: 6'2.00" Weight: 264lbs. oz. 119.405231rg; 34.26 BMI Method:Stated General Appearance: No Apparent Distress Capillary Refill: Less Than 3 Seconds Gastrointestinal: normal bowel sounds, non tender, soft, no organomegaly Results Lab Laboratory Tests 09/26/22 14:20 Assessment/Plan Assessment/Plan 1 MCKENZIE HELMS MD Sep 26, 2022 18:45
[2022-09-26] MEDS: PRAMIPEXOLE 0.5 MG TAB (MIRAPEX) PO SCH (20:02)
[2022-09-26] MEDS: DOCUSATE SODIUM 100 MG CAPSULE PO SCH (20:04)
[2022-09-26] MEDS: SENNOSIDES 8.6 MG (SENOKOT) TAB PO SCH (20:04)
[2022-09-27] MEDS ORDERED: NS IV 500 ML 500 ML IV PRN (00:15)
[2022-09-27 04:33] LABS: BASOPHILS % (AUTO) 0 % (0-10); EOSINOPHILS % (AUTO) 0 % (0-10); HEMATOCRIT 49 % (40-54); HEMOGLOBIN 16.6 g/dL (13.3-17.7); LYMPHOCYTES # (AUTO) 1.1 10^3/uL (1.0-4.0); LYMPHOCYTES % (AUTO) 11 % (12-44); MEAN CORPUSCULAR HEMOGLOBIN 32 pg (25-34); MEAN CORPUSCULAR HGB CONC 34 g/dL (32-36); MEAN CORPUSCULAR VOLUME 94 fL (80-99); MEAN PLATELET VOLUME 10.2 fL (9.0-12.2); MONOCYTES # (AUTO) 0.4 10^3/uL (0.0-1.0); MONOCYTES % (AUTO) 4 % (0-12); NEUTROPHILS # (AUTO) 7.8 10^3/uL (1.8-7.8); NEUTROPHILS % (AUTO) 84 % (42-75); PLATELET COUNT 170 10^3/uL (130-400); WHITE BLOOD COUNT 9.3 10^3/uL (4.3-11.0)
[2022-09-27 04:45] LABS: POTASSIUM 3.8 MMOL/L (3.6-5.0)
[2022-09-27 04:46] LABS: CALCIUM 8.9 MG/DL (8.5-10.1)
[2022-09-27 04:50] LABS: CREATININE SERUM 1.13 MG/DL (0.60-1.30)
[2022-09-27] MEDS ORDERED: POTASSIUM CL 10MEQ/50ML IVPB 50 ML IV SCH ×2 (05:15→06:00)
[2022-09-27] MEDS ORDERED: KCL 20 MEQ TAB (K-DUR) PO SCH (06:00)
[2022-09-27] MEDS ORDERED: MAGNESIUM 1 GM/100 ML IVPB 100 ML IV SCH (06:00)
[2022-09-27] MEDS: KCL 20 MEQ TAB (K-DUR) PO SCH (06:07)
--- NOTE | 2022-09-27 07:56 | Progress Note - Cardiology ---
Cardiology SOAP Progress Note Subjective: Sitting up on the side of the bed States he is feeling much better than yesterday No c/o CP Feels breathing has improved by "110%" from yesterday Objective: I&O/Vital Signs 09/26/22 09/26/22 09/26/22 09/26/22 21:00 22:00 23:00 23:59 Pulse 94 82 90 Resp 17 24 B/P (MAP) 105/79 (88) 121/86 (98) 129/77 (94) Pulse Ox 91 88 91 94 O2 Delivery Nasal Cannula Nasal Cannula Nasal Cannula Nasal Cannula O2 Flow Rate 2.00 2.00 2.00 2.00 09/27/22 09/27/22 09/27/22 09/27/22 00:00 00:12 01:00 01:00 Temp 36.5 Pulse 90 93 83 Resp 15 B/P (MAP) 124/92 (103) 131/89 (103) Pulse Ox 91 89 O2 Delivery Nasal Cannula Nasal Cannula O2 Flow Rate 2.00 2.00 09/27/22 09/27/22 09/27/22 09/27/22 02:00 02:00 02:45 03:00 Pulse 79 78 Resp 15 29 B/P (MAP) 130/80 (97) 128/79 (95) Pulse Ox 90 89 O2 Delivery NIV Bilevel NIV Bilevel NIV Bilevel NIV Bilevel O2 Flow Rate 3.00 3.00 5.00 5.00 09/27/22 09/27/22 09/27/22 09/27/22 04:00 04:16 05:00 05:55 Pulse 75 Resp 19 B/P (MAP) 142/73 (96) 118/75 (89) Pulse Ox 90 92 90 O2 Delivery NIV Bilevel NIV Bilevel NIV Bilevel NIV Bilevel O2 Flow Rate 5.00 5.00 5.00 5.00 09/27/22 09/27/22 09/27/22 09/27/22 06:00 07:00 07:00 08:00 Pulse 85 81 81 84 Resp 26 18 35 B/P (MAP) 123/77 (92) 130/82 (98) 120/90 (100) Pulse Ox 89 89 91 O2 Delivery NIV Bilevel Nasal Cannula Nasal Cannula O2 Flow Rate 5.00 3.00 3.00 09/27/22 00:00 Intake Total 560 ml Output Total 175 ml Balance 385 ml Weight (Pounds): 264 Weight (Calculated Kilograms): 119.210647 Constitutional: AAO x 3, well-developed, well-nourished, other (appears comfortable, appropriately responsive) Respiratory: No accessory muscle use; chest expansion is symmetric, chest is bilaterally symmetric, other (fair to good, bilateral air entry; prolonged exp) Cardiovascular: regular rate-rhythm, S1 and S2, systolic murmur (soft NO at card base) Gastrointestional: No tender; soft; No guarding, No rebound; audible bowel sounds Extremities: No clubbing, No cyanosis, No significant edema Neurologic/Psychiatric: oriented x 3, other (moves all limbs equally) Skin: No rash on exposed areas; other (reddish brown discoloration of the skin of the legs, more so on the R) Results/Procedures: Labs Laboratory Tests 09/26/22 14:20: White Blood Count 8.3, Red Blood Count 5.38, Hemoglobin 17.4, Hematocrit 52, Mean Corpuscular Volume 96, Mean Corpuscular Hemoglobin 32, Mean Corpuscular Hemoglobin Concent 34, Red Cell Distribution Width 12.3, Platelet Count 159, Mean Platelet Volume 9.9, Immature Granulocyte % (Auto) 0, Neutrophils (%) (Auto) 86H, Lymphocytes (%) (Auto) 11L, Monocytes (%) (Auto) 2, Eosinophils (%) (Auto) 0, Basophils (%) (Auto) 0, Neutrophils # (Auto) 7.1, Lymphocytes # (Auto) 0.9L, Monocytes # (Auto) 0.2, Eosinophils # (Auto) 0.0, Basophils # (Auto) 0.0, Immature Granulocyte # (Auto) 0.0, Neutrophils % (Manual) 85, Lymphocytes % (Manual) 11, Monocytes % (Manual) 3, Basophils % (Manual) 1, Platelet Estimate ADEQUATE, Blood Morphology Comment NORMAL, Prothrombin Time 13.8, INR Comment 1.0, Activated Partial Thromboplast Time 27, D-Dimer 13.01H, Sodium Level 136, Potassium Level 3.8, Chloride Level 103, Carbon Dioxide Level 21, Anion Gap 12, Blood Urea Nitrogen 14, Creatinine 1.20, Estimat Glomerular Filtration Rate 66, BUN/Creatinine Ratio 12, Glucose Level 221H, Calcium Level 9.2, Corrected Calcium 9.2, Magnesium Level 2.0, Total Bilirubin 1.4H, Aspartate Amino Transf (AST/SGOT) 14, Alanine Aminotransferase (ALT/SGPT) 15, Alkaline Phosphatase 96, Myoglobin 71.2, Troponin I < 0.028, B-Type Natriuretic Peptide 222.1H, Total Protein 7.7, Albumin 4.0 09/26/22 14:26: SARS-CoV-2 RNA (RT-PCR) Not Detected 09/27/22 03:40: White Blood Count 9.3, Red Blood Count 5.18, Hemoglobin 16.6, Hematocrit 49, Mean Corpuscular Volume 94, Mean Corpuscular Hemoglobin 32, Mean Corpuscular Hemoglobin Concent 34, Red Cell Distribution Width 11.9, Platelet Count 170, Mean Platelet Volume 10.2, Immature Granulocyte % (Auto) 1, Neutrophils (%) (Auto) 84H, Lymphocytes (%) (Auto) 11L, Monocytes (%) (Auto) 4, Eosinophils (%) (Auto) 0, Basophils (%) (Auto) 0, Neutrophils # (Auto) 7.8, Lymphocytes # (Auto) 1.1, Monocytes # (Auto) 0.4, Eosinophils # (Auto) 0.0, Basophils # (Auto) 0.0, Immature Granulocyte # (Auto) 0.1, Sodium Level 134L, Potassium Level 3.8, Chloride Level 100, Carbon Dioxide Level 22, Anion Gap 12, Blood Urea Nitrogen 19H, Creatinine 1.13, Estimat Glomerular Filtration Rate 71, BUN/Creatinine Ratio 17, Glucose Level 231H, Calcium Level 8.9, Magnesium Level 2.1, Triglycerides Level 54, Cholesterol Level 129, LDL Cholesterol Direct 85, VLDL Cholesterol 11, HDL Cholesterol 37L A/P: Assessment: Pulmonary embolism Chronic tobacco use and suspected COPD DOMINGA, treated with CPAP and supplemental oxygen CAD - card cath of 2018 showed chronically proximally occluded RCA (collateralized), posterobasal dyskinesis, LVEF 45-50% - MPI of July 2022 showed fixed inferior defect with LVEF 52% Plan: * Anticoagulation for PE as determined by the Hospitalist corby * We recommend Pulm / ICU eval * Echo * We recommend eval for DVT * We recommend eval for conditions causing prothrombotic states (such as malignancies) CHIP AGUILLON Sep 27, 2022 07:56
[2022-09-27] MEDS: APIXABAN 5 MG TABLET PO SCH ×2 (08:30→20:34)
[2022-09-27] MEDS: buPROPion SR 150 MG TABLET PO SCH (08:31)
[2022-09-27] MEDS: ASPIRIN enteric coated 81MG TABLET PO SCH (08:32)
[2022-09-27] MEDS: PRAMIPEXOLE 0.5 MG TAB (MIRAPEX) PO SCH ×2 (08:33→20:35)
[2022-09-27] MEDS: SENNOSIDES 8.6 MG (SENOKOT) TAB PO SCH ×2 (08:34→20:36)
[2022-09-27] MEDS: DOCUSATE SODIUM 100 MG CAPSULE PO SCH ×2 (08:34→20:36)
[2022-09-27] MEDS ORDERED: VERAPAMIL SR 180 MG (CALAN SR) TAB PO SCH (09:00)
[2022-09-27] MEDS ORDERED: RT-ALBUTEROL HFA 8.5 GM INHALER IH PRN (09:00)
[2022-09-27] MEDS ORDERED: CLOPIDOGREL 75 MG TABLET PO SCH (09:00)
--- NOTE | 2022-09-27 09:03 | Tele-ICU Progress Note ---
Subjective Date Seen by a Provider: Sep 27, 2022 Time Seen by a Provider: 09:00 Subjective/Events-last exam (Tele-ICU Physician , Progress Note ) Service provided via interactive audio and video telecommunications E-CARE system to a patient admitted to ICU bed in [facility]. Patient is seen today due to persistent need of ICU care Available chart/ vitals / labs / Images reviewed Video assessment done using teleICU camera, rest of exam as per RN Discussed with RN Events overnight : Afebrile hemodynamically stable Respiratory - 3L I/O = Drips: Pressors- no Hospital course: (09/26) 66y/o M admitted with PE A/P Pulmonary embolism, bilateral with significant clot burden - biomarkers - + BNP , neg trop -vitals stable -hypoxia - needs O2 3l --started on apixaban po -ECHO amd LE US pending Chronic tobacco use and suspected COPD - albuterol PRN DOMINGA, - CPAP and 2 L oxygen chronically at night.- compliant- to cont CAD - card cath of 2018 showed chronically proximally occluded RCA (collateralized), posterobasal dyskinesis, LVEF 45-50% - MPI of July 2022 showed fixed inferior defect with LVEF 52% DM - metformin on hold Lines : periph , (Central Line Necessity Reviewed) Sandoval: void OG: Nutrition: Analgesia: Anxiety/ delirium VTE Prophylaxis: eliquis Stress Ulcer Prophylaxis: Plans in collaboration with bedside consultants and IM MDs. Discussed with RN to reach out if any questions or concerns Case and care daily discussed on multidisciplinary rounds ( RN, PharmD, Naphthalene Still Operator , Respiratory Therapy, motion picture set worker ) A total of 20 minutes of critical care time was devoted to this patient today, required to treat and/or prevent further deterioration of critical care condition ( as above ) . I am remotely monitoring this patient from another state. I am unable to do the bedside exam, and history/physical and pertinent information is taken from other notes in the computer and bedside staff. Sepsis Event Evaluation Height, Weight, BMI Height: 6'2.00" Weight: 264lbs. oz. 119.899830fg; 35.28 BMI Method:Stated Exam Exam Patient acknowledged, consented, and participated in this virtual visit which was conducted using real time audio/video Vital Signs Date Time Temp Pulse Resp B/P (MAP) Pulse Ox O2 Delivery O2 Flow Rate FiO2 09/27/22 08:00 84 35 120/90 (100) 91 Nasal Cannula 3.00 09/27/22 07:00 81 18 130/82 (98) 89 Nasal Cannula 3.00 09/27/22 07:00 81 09/27/22 06:00 85 26 123/77 (92) 89 NIV Bilevel 5.00 09/27/22 05:55 90 NIV Bilevel 5.00 09/27/22 05:00 118/75 (89) 92 NIV Bilevel 5.00 09/27/22 04:16 NIV Bilevel 5.00 09/27/22 04:00 75 19 142/73 (96) 90 NIV Bilevel 5.00 09/27/22 03:00 78 29 128/79 (95) 89 NIV Bilevel 5.00 09/27/22 02:45 NIV Bilevel 5.00 09/27/22 02:00 79 15 130/80 (97) 90 NIV Bilevel 3.00 09/27/22 02:00 NIV Bilevel 3.00 09/27/22 01:00 83 09/27/22 01:00 93 131/89 (103) 89 Nasal Cannula 2.00 09/27/22 00:12 36.5 09/27/22 00:00 90 15 124/92 (103) 91 Nasal Cannula 2.00 09/26/22 23:59 94 Nasal Cannula 2.00 09/26/22 23:00 90 24 129/77 (94) 91 Nasal Cannula 2.00 09/26/22 22:00 82 121/86 (98) 88 Nasal Cannula 2.00 09/26/22 21:00 94 17 105/79 (88) 91 Nasal Cannula 2.00 09/26/22 20:05 36.8 09/26/22 20:00 95 18 159/93 (115) 94 Nasal Cannula 2.00 09/26/22 20:00 92 Nasal Cannula 2.00 09/26/22 19:03 91 Nasal Cannula 2.00 09/26/22 19:00 84 20 130/83 (99) 90 Nasal Cannula 2.00 09/26/22 19:00 103 09/26/22 18:30 94 117/97 (104) 92 Nasal Cannula 2.00 09/26/22 18:11 91 09/26/22 18:00 89 147/83 (104) 92 Nasal Cannula 2.00 09/26/22 17:45 87 126/84 (98) 93 Nasal Cannula 2.00 09/26/22 17:30 84 123/85 (98) 93 Nasal Cannula 2.00 09/26/22 17:30 98 Nasal Cannula 2.00 09/26/22 17:15 36.0 88 18 153/79 95 Nasal Cannula 3.00 09/26/22 17:13 36.3 95 138/93 (108) 94 Nasal Cannula 2.00 09/26/22 14:14 2.00 09/26/22 14:14 36.5 95 20 169/98 (121) 95 Nasal Cannula 2.00 09/26/22 14:12 95 Nasal Cannula 2.00 I & O 09/27/22 07:00 Intake Total 660 ml Output Total 1100 ml Balance -440 ml Height & Weight Height: 6'2.00" Weight: 264lbs. oz. 119.910333ug; 35.28 BMI Method:Stated General Appearance: No Apparent Distress Capillary Refill: Less Than 3 Seconds Gastrointestinal: normal bowel sounds, non tender, soft, no organomegaly Results Lab Laboratory Tests 09/26/22 14:20 09/27/22 03:40 Assessment/Plan Assessment/Plan 1 MCKENZIE HELMS MD Sep 27, 2022 09:03
[2022-09-27] MEDS: inSUlin ASPART (NovoLOG) 1 UNIT/0.01 ML (CHARGE PER UNIT) SC SCH ×3 (11:11→20:36)
--- NOTE | 2022-09-27 12:29 | Diagnostic Imaging Report ---
PROCEDURE: US Venous Lower Ext Jese. TECHNIQUE: Multiple real-time grayscale images were obtained over the lower extremities in various projections, bilaterally. Additional duplex Doppler and color Doppler images were also obtained. INDICATION: Pulmonary embolism. FINDINGS: There is nonocclusive thrombus in the left popliteal vein extending into the calf veins. The more proximal venous system demonstrates normal response to compression, augmentation and Valsalva. There are no abnormal fluid collections or masses. IMPRESSION: Nonocclusive thrombus in the left popliteal vein extending into the calf veins. Dictated by: Dictated on workstation # [id number]
[2022-09-27] MEDS ORDERED: CETI10TA17 PO (13:32)
[2022-09-27] MEDS ORDERED: SULF1TAB38 PO (13:32)
[2022-09-27] MEDS ORDERED: HYDR50TA6 PO (13:32)
[2022-09-27] MEDS ORDERED: ASPI-1238 PO (13:32)
[2022-09-27] MEDS ORDERED: BUPR150T28 PO (13:32)
[2022-09-27] MEDS ORDERED: FLUT9.9S NSEACH (13:32)
[2022-09-27] MEDS ORDERED: METF-478 PO (13:32)
[2022-09-27] MEDS ORDERED: METH4TAB10 PO (13:32)
[2022-09-27 15:58] VITALS: BP 121/67
--- NOTE | 2022-09-27 17:00 | Progress Note - Cardiology ---
Cardiology SOAP Progress Note Subjective: States feels better today No cp or palp or syncope Shortness of breath absent at rest No n/v/d No swelling Gen weakness present Objective: I&O/Vital Signs 09/27/22 09/27/22 09/27/22 09/27/22 05:00 05:55 06:00 07:00 Pulse 85 81 Resp 26 B/P (MAP) 118/75 (89) 123/77 (92) Pulse Ox 92 90 89 O2 Delivery NIV Bilevel NIV Bilevel NIV Bilevel O2 Flow Rate 5.00 5.00 5.00 09/27/22 09/27/22 09/27/22 09/27/22 07:00 07:45 08:00 09:00 Pulse 81 84 82 Resp 18 35 B/P (MAP) 130/82 (98) 120/90 (100) 112/68 (83) Pulse Ox 89 91 93 O2 Delivery Nasal Cannula Nasal Cannula Nasal Cannula Nasal Cannula O2 Flow Rate 3.00 3.00 3.00 3.00 09/27/22 09/27/22 09/27/22 09/27/22 09:06 10:00 11:00 12:00 Temp 36.6 Pulse 76 81 80 Resp 15 B/P (MAP) 122/84 (97) 125/85 (98) 120/76 (91) Pulse Ox 92 92 90 O2 Delivery Nasal Cannula Nasal Cannula Nasal Cannula O2 Flow Rate 3.00 3.00 3.00 09/27/22 09/27/22 09/27/22 12:35 12:51 15:58 Temp 36.1 36.6 Pulse 65 Resp 17 B/P (MAP) 121/67 (85) Pulse Ox 93 O2 Delivery Room Air Nasal Cannula O2 Flow Rate 2.00 09/27/22 00:00 Intake Total 560 ml Output Total 175 ml Balance 385 ml Weight (Pounds): 264 Weight (Calculated Kilograms): 119.839779 Constitutional: AAO x 3, well-developed, well-nourished, other (appears comfortable, appropriately responsive) Respiratory: No accessory muscle use; chest expansion is symmetric, chest is bilaterally symmetric, other (fair to good, bilateral air entry; prolonged exp) Cardiovascular: regular rate-rhythm, S1 and S2, systolic murmur (soft NO at card base) Gastrointestional: No tender; soft; No guarding, No rebound; audible bowel sounds Extremities: No clubbing, No cyanosis, No significant edema Neurologic/Psychiatric: oriented x 3, other (moves all limbs equally) Skin: No rash on exposed areas; other (reddish brown discoloration of the skin of the legs, more so on the R) Results/Procedures: Labs Laboratory Tests 09/27/22 03:40: White Blood Count 9.3, Red Blood Count 5.18, Hemoglobin 16.6, Hematocrit 49, Mean Corpuscular Volume 94, Mean Corpuscular Hemoglobin 32, Mean Corpuscular Hemoglobin Concent 34, Red Cell Distribution Width 11.9, Platelet Count 170, Mean Platelet Volume 10.2, Immature Granulocyte % (Auto) 1, Neutrophils (%) (Auto) 84H, Lymphocytes (%) (Auto) 11L, Monocytes (%) (Auto) 4, Eosinophils (%) (Auto) 0, Basophils (%) (Auto) 0, Neutrophils # (Auto) 7.8, Lymphocytes # (Auto) 1.1, Monocytes # (Auto) 0.4, Eosinophils # (Auto) 0.0, Basophils # (Auto) 0.0, Immature Granulocyte # (Auto) 0.1, Sodium Level 134L, Potassium Level 3.8, Chloride Level 100, Carbon Dioxide Level 22, Anion Gap 12, Blood Urea Nitrogen 19H, Creatinine 1.13, Estimat Glomerular Filtration Rate 71, BUN/Creatinine Ratio 17, Glucose Level 231H, Calcium Level 8.9, Magnesium Level 2.1, Triglycerides Level 54, Cholesterol Level 129, LDL Cholesterol Direct 85, VLDL Cholesterol 11, HDL Cholesterol 37L 09/27/22 11:06: Glucometer 242H 09/27/22 15:33: Glucometer 138H Microbiology 09/26/22 MRSA Screen - Final, Complete MRSA not isolated Laboratory Tests 09/26/22 14:20 09/27/22 03:40 A/P: Assessment: Pulmonary embolism - Echo on 09/27/22: mild conc LVH, LVEF 50-55%,mild to moderate enlargement of right heart, PASP 60-65 mmHg Chronic tobacco use and suspected COPD DOMINGA, treated with CPAP and supplemental oxygen CAD - card cath of 2018 showed chronically proximally occluded RCA (collateralized), posterobasal dyskinesis, LVEF 45-50% - MPI of July 2022 showed fixed inferior defect with LVEF 52% DM II Plan: * Advised to quit smoking immediately and completely * Hosp svce managing DM II and anticoag and w/u for causes of PE * Continue bb and ASA because of h/o CAD * Monitor labs ZACHERY REIS MD FACP FAC CCDS Sep 27, 2022 17:00
--- NOTE | 2022-09-27 17:42 | History & Physical-Hospitalist ---
History of Present Illness HPI/Chief Complaint Mao Alarcon is a 66 year old male with PMH HTN, T2DM, HLD, CAD, BPH, DOMINGA on CPAP and nocturnal oxygen, who presented with shortness of breath. He has had some shortness of breath over the recent weeks. He became more short of breath yesterday. His oxygen saturations were dropping into the 80s and not improving. He denies chest pain. He has had leg swelling. He has had discoloration of his bilateral lower extremities. He denies leg pain. He has a history of DVT/PE 30 years ago. He was treated with Coumadin at that time. He has not been on anticoagulation recently. He reports that he had his leg in a cast for several months at that time. He denies any recent travel or surgeries. He says he has been fairly immobile since retiring. He spends most of his time in his recliner. He is a current smoker 1/2 PPD. Source: patient Exam Limitations: no limitations Date Seen 09/27/22 Time Seen by a Provider: 09:55 Attending Physician Yovani Wisdom DO PCP Admitting Physician: Carol Leone MD Attending Physician: Carol Leone MD Referring Physician Date of Admission Sep 26, 2022 at 17:15 Home Medications & Allergies Home Medications Reviewed patient Home Medication Reconciliation performed by pharmacy medication reconciliations prior authorization technician and/or nursing. Patients Allergies have been reviewed. Allergies Allergies Coded Allergies Penicillins (Verified Allergy, Unknown, SCRATCH TEST PATIENT WAS KAIN, 09/26/22) Past Jrryurh-Lhbywf-Wzhzel Hx Patient Social History Tobacco Use?: No Tobacco type used: Cigarettes Smoking Status: Current Everyday Smoker Smokeless Tobacco Frequency: Never a User Use of E-Cig and/or Vaping dev: No Substance use?: No Substance type: Caffeine Substance frequency: Daily Alcohol Use?: Yes Alcohol type: Beer Alcohol Frequency: Rarely Pt feels they are or have been: No Immunizations Up To Date Date of Influenza Vaccine: Jan 04, 2022 First/Initial COVID19 Vaccinat: 03/05/20 Second COVID19 Vaccination Jeyson: 03/25/20 Seasonal Allergies Seasonal Allergies: Yes Current Status Advance Directives: No Communicates: Verbally Primary Language: Azerbaijani Preferred Spoken Language: Azerbaijani Sensory deficits: Vision impairment Implanted or Applied Medical D: CPAP Past Medical History Surgeries: Appendectomy Pulmonary Embolism Currently Using CPAP: No Currently Using BIPAP: No Heart Attack, High Cholesterol, Hypertension TIA Bladder Infection, Kidney Stones Chronic Back Pain, Fractures Diabetes, Non-Insulin dep Anxiety Blood Disorders: No Family Medical History No Pertinent Family Hx Review of Systems Constitutional: no symptoms reported Respiratory: short of breath Cardiovascular: no symptoms reported Gastrointestinal: no symptoms reported Physical Exam Physical Exam Vital Signs Vital Signs - First Documented 09/26/22 14:12 Pulse Ox 95 O2 Delivery Nasal Cannula O2 Flow Rate 2.00 Capillary Refill : Less Than 3 Seconds Height, Weight, BMI Height: 6'2.00" Weight: 264lbs. oz. 119.898684fc; 35.28 BMI Method:Stated General Appearance: No Apparent Distress, Obese HEENT: PERRL/EOMI, Pharynx Normal Neck: Normal Inspection, Supple Respiratory: Lungs Clear, Normal Breath Sounds, No Respiratory Distress Cardiovascular: Regular Rate, Rhythm, No Murmur Gastrointestinal: Normal Bowel Sounds, Non Tender, Soft Extremity: Non Tender; No Inflammation; Pedal Edema Neurologic/Psychiatric: Alert, Normal Mood/Affect Skin: Warm/Dry, Other (venous stasis dermatitis) Results Results/Procedures Labs Laboratory Tests 09/26/22 14:20 09/27/22 03:40 Patient resulted labs reviewed. Imaging: Reviewed Imaging Films, Reviewed Imaging Report Assessment/Plan Admission Diagnosis Pulmonary embolism Admission Status: Inpatient Order (span 2 midnights) Reason for Inpatient Admission: Respiratory failure Assessment and Plan DVT/PE Acute respiratory failure with hypoxia Supplemental oxygen as needed Home oxygen evaluation CT with bilateral PE Troponin negative Echo with elevated PASP and right ventricular dilation, likely due to sleep apnea and PE Started on Eliquis Will need age appropriate cancer screenings: colonoscopy, prostate exam/PSA, etc T2DM Sliding scale insulin HTN HLD CAD DOMINGA on CPAP BPH Continue home meds as able Diagnosis/Problems Diagnosis/Problems (1) Pulmonary embolism Status: Acute Qualifiers: Pulmonary embolism type: multiple subsegmental (without acute cor pulmonale) Qualified Codes: I26.94 - Multiple subsegmental pulmonary emboli without acute cor pulmonale (2) Acute deep vein thrombosis (DVT) of popliteal vein of left lower extremity Status: Acute (3) Acute respiratory failure with hypoxia Status: Acute (4) HTN (hypertension) Status: Chronic (5) HLD (hyperlipidemia) Status: Chronic (6) T2DM (type 2 diabetes mellitus) Status: Chronic (7) DOMINGA on CPAP Status: Chronic (8) Obesity Status: Chronic (9) Tobacco abuse Status: Chronic CAROL LEONE MD Sep 27, 2022 17:42
[2022-09-27 19:58] VITALS: BP 132/79
[2022-09-27] MEDS ORDERED: TAMSULOSIN 0.4 MG (FLOMAX) CAP PO SCH (21:00)
[2022-09-27 23:20] VITALS: BP 123/78
[2022-09-28 04:30] VITALS: BP 131/82
[2022-09-28] MEDS: KCL 20 MEQ TAB (K-DUR) PO SCH (05:28)
[2022-09-28] MEDS: inSUlin ASPART (NovoLOG) 1 UNIT/0.01 ML (CHARGE PER UNIT) SC SCH ×2 (05:28→11:00)
[2022-09-28 05:42] LABS: BASOPHILS # (AUTO) 0.1 10^3/uL (0.0-0.1); BASOPHILS % (AUTO) 1 % (0-10); EOSINOPHILS # (AUTO) 0.2 10^3/uL (0.0-0.3); EOSINOPHILS % (AUTO) 2 % (0-10); HEMATOCRIT 48 % (40-54); HEMOGLOBIN 16.1 g/dL (13.3-17.7); LYMPHOCYTES # (AUTO) 2.6 10^3/uL (1.0-4.0); LYMPHOCYTES % (AUTO) 27 % (12-44); MEAN CORPUSCULAR HEMOGLOBIN 32 pg (25-34); MEAN CORPUSCULAR HGB CONC 34 g/dL (32-36); MEAN CORPUSCULAR VOLUME 95 fL (80-99); MEAN PLATELET VOLUME 9.9 fL (9.0-12.2); MONOCYTES # (AUTO) 0.7 10^3/uL (0.0-1.0); MONOCYTES % (AUTO) 7 % (0-12); NEUTROPHILS # (AUTO) 6.2 10^3/uL (1.8-7.8); NEUTROPHILS % (AUTO) 64 % (42-75); PLATELET COUNT 143 10^3/uL (130-400); WHITE BLOOD COUNT 9.8 10^3/uL (4.3-11.0)
[2022-09-28 05:56] LABS: POTASSIUM 4.1 MMOL/L (3.6-5.0)
[2022-09-28 05:57] LABS: CALCIUM 8.4 MG/DL (8.5-10.1)
[2022-09-28 06:02] LABS: CREATININE SERUM 1.13 MG/DL (0.60-1.30)
[2022-09-28 07:28] VITALS: BP 122/73
[2022-09-28] MEDS: APIXABAN 5 MG TABLET PO SCH (08:14)
[2022-09-28] MEDS: buPROPion SR 150 MG TABLET PO SCH (08:15)
[2022-09-28] MEDS: ASPIRIN enteric coated 81MG TABLET PO SCH (08:16)
[2022-09-28] MEDS: PRAMIPEXOLE 0.5 MG TAB (MIRAPEX) PO SCH (08:17)
[2022-09-28] MEDS: DOCUSATE SODIUM 100 MG CAPSULE PO SCH (08:18)
[2022-09-28] MEDS: SENNOSIDES 8.6 MG (SENOKOT) TAB PO SCH (08:18)
[2022-09-28] MEDS ORDERED: APIX5TAB PO (10:14)
[2022-09-28 11:24] VITALS: BP 127/72
--- NOTE | 2022-09-28 13:16 | Progress Note - Cardiology ---
Cardiology SOAP Progress Note Subjective: No cp except sharp pain with deep inspiration in the lateral giordano of the chest - improving No palp or syncope Shortness of breath much improved No swelling No n/v/d Objective: I&O/Vital Signs 09/28/22 09/28/22 09/28/22 09/28/22 04:30 07:00 07:28 08:14 Temp 36.6 36.4 Pulse 59 58 68 Resp 18 18 B/P (MAP) 131/82 (98) 122/73 (89) Pulse Ox 91 91 O2 Delivery Room Air Room Air Room Air 09/28/22 09/28/22 08:44 11:24 Temp 36.4 Pulse 70 Resp 19 B/P (MAP) 127/72 (90) Pulse Ox 93 O2 Delivery Room Air Room Air FiO2 96 09/28/22 00:00 Intake Total 1430 ml Output Total 625 ml Balance 805 ml Weight (Pounds): 264 Weight (Calculated Kilograms): 119.462193 Constitutional: AAO x 3, well-developed, well-nourished, other (appears comfortable, appropriately responsive) Respiratory: No accessory muscle use; chest expansion is symmetric, chest is bilaterally symmetric, other (fair to good, bilateral air entry; prolonged exp) Cardiovascular: regular rate-rhythm, S1 and S2, systolic murmur (soft NO at card base) Gastrointestional: No tender; soft; No guarding, No rebound; audible bowel sounds Extremities: No clubbing, No cyanosis, No significant edema Neurologic/Psychiatric: oriented x 3, other (moves all limbs equally) Skin: No rash on exposed areas; other (reddish brown discoloration of the skin of the legs, more so on the R) Results/Procedures: Labs Laboratory Tests 09/27/22 15:33: Glucometer 138H 09/27/22 20:31: Glucometer 173H 09/28/22 05:05: White Blood Count 9.8, Red Blood Count 5.01, Hemoglobin 16.1, Hematocrit 48, Mean Corpuscular Volume 95, Mean Corpuscular Hemoglobin 32, Mean Corpuscular Hemoglobin Concent 34, Red Cell Distribution Width 12.3, Platelet Count 143, Mean Platelet Volume 9.9, Immature Granulocyte % (Auto) 0, Neutrophils (%) (Auto) 64, Lymphocytes (%) (Auto) 27, Monocytes (%) (Auto) 7, Eosinophils (%) (Auto) 2, Basophils (%) (Auto) 1, Neutrophils # (Auto) 6.2, Lymphocytes # (Auto) 2.6, Monocytes # (Auto) 0.7, Eosinophils # (Auto) 0.2, Basophils # (Auto) 0.1, Immature Granulocyte # (Auto) 0.0, Sodium Level 137, Potassium Level 4.1, Chloride Level 103, Carbon Dioxide Level 25, Anion Gap 9, Blood Urea Nitrogen 17, Creatinine 1.13, Estimat Glomerular Filtration Rate 71, BUN/Creatinine Ratio 15, Glucose Level 104, Calcium Level 8.4L 09/28/22 05:24: Glucometer 111H 09/28/22 10:41: Glucometer 153H Microbiology 09/26/22 MRSA Screen - Final, Complete MRSA not isolated Laboratory Tests 09/26/22 14:20 09/27/22 03:40 09/28/22 05:05 A/P: Assessment: Pulmonary embolism - Echo on 09/27/22: mild conc LVH, LVEF 50-55%,mild to moderate enlargement of right heart, PASP 60-65 mmHg Chronic tobacco use and suspected COPD DOMINGA, treated with CPAP and supplemental oxygen CAD - card cath of 2018 showed chronically proximally occluded RCA (collateralized), posterobasal dyskinesis, LVEF 45-50% - MPI of July 2022 showed fixed inferior defect with LVEF 52% DM II Plan: * Advised to quit smoking immediately and completely * Hosp svce managing DM II and anticoag and w/u for causes of PE * Continue bb and ASA because of h/o CAD * Outpt f/u advised ZACHERY REIS MD FACP FAC CCDS Sep 28, 2022 13:15
[2022-09-28 14:31] VITALS: BP 127/72
--- NOTE | 2022-09-28 14:53 | Discharge Summary ---
Discharge Summary Hospital Course Problems/Dx: (1) Pulmonary embolism Status: Acute Qualifiers: Qualified Codes: I26.94 - Multiple subsegmental pulmonary emboli without acute cor pulmonale (2) Acute deep vein thrombosis (DVT) of popliteal vein of left lower extremity Status: Acute (3) Acute respiratory failure with hypoxia Status: Acute (4) HTN (hypertension) Status: Chronic (5) HLD (hyperlipidemia) Status: Chronic (6) T2DM (type 2 diabetes mellitus) Status: Chronic (7) DOMINGA on CPAP Status: Chronic (8) Obesity Status: Chronic (9) Tobacco abuse Status: Chronic Hospital Course Date of Admission: Sep 26, 2022 at 17:15 Admission Diagnosis : Pulmonary embolism Family Physician/Provider: Yovani Wisdom DO Date of Discharge: 09/28/22 Discharge Diagnosis: Pulmonary embolism Hospital Course: Mao Alarcon is a 66 year old male who was admitted with pulmonary embolism. He was started on Eliquis. He was also found to have a DVT in his left popliteal vein. He was hypoxic and required supplemental oxygen. He was set up with 2 L oxygen with exertion. He has a history of provoked DVT 30 years ago due to immobility with broken leg. He had taken coumadin at that time but has no longer been on anticoagulation. He had a CT on arrival with no evidence of pulmonary nodule or mass. He should undergo all age-appropriate cancer screening including colonoscopy, prostate exam/PSA, and any other necessary workup. He should follow up with Dr. Wisdom in about a week. He was discharged home in stable condition. Labs and Pending Lab Test: Laboratory Tests 09/27/22 15:33: Glucometer 138H 09/27/22 20:31: Glucometer 173H 09/28/22 05:05: White Blood Count 9.8, Red Blood Count 5.01, Hemoglobin 16.1, Hematocrit 48, Mean Corpuscular Volume 95, Mean Corpuscular Hemoglobin 32, Mean Corpuscular Hemoglobin Concent 34, Red Cell Distribution Width 12.3, Platelet Count 143, Mean Platelet Volume 9.9, Immature Granulocyte % (Auto) 0, Neutrophils (%) (Auto ) 64, Lymphocytes (%) (Auto) 27, Monocytes (%) (Auto) 7, Eosinophils (%) (Auto) 2, Basophils (%) (Auto) 1, Neutrophils # (Auto) 6.2, Lymphocytes # (Auto) 2.6, Monocytes # (Auto) 0.7, Eosinophils # (Auto) 0.2, Basophils # (Auto) 0.1, Immature Granulocyte # (Auto) 0.0, Sodium Level 137, Potassium Level 4.1, Chloride Level 103, Carbon Dioxide Level 25, Anion Gap 9, Blood Urea Nitrogen 17, Creatinine 1.13, Estimat Glomerular Filtration Rate 71, BUN/Creatinine Ratio 15, Glucose Level 104, Calcium Level 8.4L 09/28/22 05:24: Glucometer 111H 09/28/22 10:41: Glucometer 153H Microbiology 09/26/22 MRSA Screen - Final, Complete MRSA not isolated Home Meds Active Eliquis (Apixaban) 5 Mg Tablet 5 Mg PO BID 30 Days TAKE 2 TABLETS BID X 7 DAYS, THEN 1 TABLET BID Reported Flonase Allergy Relief (Fluticasone Propionate) 50 Mcg/Actuation [place].susp 1-2 [place]iota NSEACH HS Cetirizine HCl 10 Mg Tablet 10 Mg PO DAILY Metformin HCl ER (Metformin HCl) 500 Mg Tab.er.24 500 Mg PO DAILY Hydrochlorothiazide 50 Mg Tablet 50 Mg PO DAILY Bupropion HCl Sr (Bupropion HCl) 150 Mg Tablet.er 150 Mg PO BID Aspirin EC (Aspirin) 81 Mg Tablet.dr 81 Mg PO DAILY Pramipexole Dihydrochloride (Pramipexole Di-HCl) 0.5 Mg Tablet 0.5 Mg PO BID Metoprolol Succinate 25 Mg Tab.er.24h 25 Mg PO HS Flomax (Tamsulosin HCl) 0.4 Mg Cap 0.4 Mg PO HS Verapamil ER (Verapamil HCl) 180 Mg Tablet.er 180 Mg PO HS Lipitor (Atorvastatin Calcium) 40 Mg Tablet 40 Mg PO DAILY Assessment/Pt Instructions See instructions Discharge Planning: >30 minutes discharge planning Discharge Instructions Discharge Diet: No Restrictions Activity as Tolerated: Yes Discharge Physical Examination Vital Signs Vital Signs Date Time Temp Pulse Resp B/P (MAP) Pulse Ox O2 Delivery O2 Flow Rate FiO2 09/28/22 12:30 72 09/28/22 11:24 36.4 19 127/72 (90) 93 Room Air 09/28/22 08:44 96 09/27/22 15:58 2.00 General Appearance: No Apparent Distress, Obese Respiratory: Lungs Clear, No Respiratory Distress Cardiovascular: Regular Rate, Rhythm, No Murmur Gastrointestinal: Normal Bowel Sounds, Soft Extremity: Non Tender; No Inflammation; Pedal Edema Skin: Warm/Dry, Other (venous stasis dermatitis) Neurologic/Psychiatric: Alert, Normal Mood/Affect Allergies: Coded Allergies: Penicillins (Verified Allergy, Unknown, SCRATCH TEST PATIENT WAS RED, 09/26/22) Copy Copies To 1: YOVANI WISDOM DO Discharge Summary Date of Admission Sep 26, 2022 at 17:15 Date of Discharge Discharge Date: Sep 28, 2022 Discharge Time: 14:52 Admission Diagnosis Pulmonary embolism Discharge Diagnosis DVT/PE Acute respiratory failure with hypoxia T2DM HTN HLD CAD DOMINGA on CPAP BPH (1) Pulmonary embolism Status: Acute Qualifiers: Qualified Codes: I26.94 - Multiple subsegmental pulmonary emboli without acute cor pulmonale (2) Acute deep vein thrombosis (DVT) of popliteal vein of left lower extremity Status: Acute (3) Acute respiratory failure with hypoxia Status: Acute (4) HTN (hypertension) Status: Chronic (5) HLD (hyperlipidemia) Status: Chronic (6) T2DM (type 2 diabetes mellitus) Status: Chronic (7) DOMINGA on CPAP Status: Chronic (8) Obesity Status: Chronic (9) Tobacco abuse Status: Chronic CAROL LEONE MD Sep 28, 2022 14:52
[2022-09-28] MEDS ORDERED: VERAPAMIL SR 180 MG (CALAN SR) TAB PO SCH (21:00)
[2022-09-28] MEDS ORDERED: CLOPIDOGREL 75 MG TABLET PO SCH (21:00)
== END 2022-09-28 14:31 | disposition home or self-care (01) | DRG 175 ==
LOC: EDUNIT# 14:08 → ER 14:10 → ICU 17:15 → 4TH 09-27 15:00
PROVIDERS: ADMIT Internal Medicine; ATTEND Internal Medicine
DX: I26.99 Other pulmonary embolism without acute cor pulmonale (principal); J96.01 Acute respiratory failure with hypoxia; I82.432 Acute embolism and thrombosis of left popliteal vein; I87.2 Venous insufficiency (chronic) (peripheral); I73.9 Peripheral vascular disease, unspecified; I25.10 Atherosclerotic heart disease of native coronary artery without angina pectoris; G47.33 Obstructive sleep apnea (adult) (pediatric); I10 Essential (primary) hypertension; E11.9 Type 2 diabetes mellitus without complications; Z20.822 Contact with and (suspected) exposure to COVID-19; N40.0 Benign prostatic hyperplasia without lower urinary tract symptoms; E78.00 Pure hypercholesterolemia, unspecified; F17.210 Nicotine dependence, cigarettes, uncomplicated; E66.9 Obesity, unspecified; Z68.35 Body mass index [BMI] 35.0-35.9, adult; H54.7 Unspecified visual loss; Z99.81 Dependence on supplemental oxygen; I25.2 Old myocardial infarction; Z86.73 Personal history of transient ischemic attack (TIA), and cerebral infarction without residual deficits; Z96.642 Presence of left artificial hip joint; Z88.0 Allergy status to penicillin; Z79.02 Long term (current) use of antithrombotics/antiplatelets; Z79.82 Long term (current) use of aspirin; Z79.899 Other long term (current) drug therapy; Z79.84 Long term (current) use of oral hypoglycemic drugs
CPT/HCPCS: 36415; 71045; 71275; 80048; 80053; 80061; 82947; 83735; 83874; 83880; 84484; 85007; 85025; 85027; 85379; 85610; 85730; 87081; 87636; 93005; 93041; 93306; 93970; 94640; 94760; 94761; 96374

== ENCOUNTER 2022-12-31 12:46 | Emergency (ER) | payer MEDICARE ==
[~2022-12-31] VITALS: Ht 187 cm; Wt 125.0 kg
[~2022-12-31 12:46] MED LIST changes: +APIX5TAB PO; +ASPI-1238 PO; +BUPR-105 PO; +BUPR150T28 PO; +CETI10TA17 PO; +FLUT9.9S NSEACH; +METH4TAB10 PO; +MTP25TSR PO; +PRAM0.5T9 PO; +SULF-11 PO; +SULF1TAB38 PO
--- NOTE | 2022-12-31 12:59 | ED Head Injury ---
General Chief Complaint: Trauma-Non Activation Stated Complaint: FALL Nursing Triage Note: PT TO [facility] WITH C/O LEFT KNEE PAIN AFTER FALLING OVER BRICKS IN BACKYARD. PT REPORTS HITTING HEAD ON A POST BUT DENIES LOC. PT HAS SKIN TEAR AND HEMATOMA NOTED TO LEFT MURPHY. VITALS STABLE UPON ARRIVAL, PT a&oX4. Source: patient, EMS Exam Limitations: no limitations (MAKAYLA SEN APRN) History of Present Illness Date Seen by Provider: Dec 31, 2022 Time Seen by Provider: 12:47 Initial Comments 67-year-old male presents to the ER via EMS after he tripped and fell in his backyard. States that he was walking on unstable bricks and they rolled causing him to fall. He hit his head on a post, denies loss of conscious. Reports that he hit his left hand and left murphy as well. Presents with wounds in these locations. Patient takes Eliquis for history of PEs. Patient is alert and oriented x4. (MAKAYLA SNE APRN) Allergies and Home Medications Allergies Coded Allergies: Penicillins (Verified Allergy, Unknown, SCRATCH TEST PATIENT WAS RED, 09/26/22) Patient Home Medication List Home Medication List Reviewed: Yes (MAKAYLA SEN APRN) Apixaban (Eliquis) 5 Mg Tablet, 5 MG PO BID Prescribed by: CAROL LEONE on 09/28/22 1014 Aspirin (Aspirin EC) 81 Mg Tablet.dr, 81 MG PO DAILY, (Reported) Entered as Reported by: KRISTOPHER NORIEGA on 09/27/22 1332 Atorvastatin Calcium (Lipitor) 40 Mg Tablet, 40 MG PO DAILY, (Reported) Entered as Reported by: KRISTOPHER NORIEGA on 12/03/18 1117 Bupropion HCl (Bupropion HCl Sr) 150 Mg Tablet.er, 150 MG PO BID, (Reported) Entered as Reported by: KRISTOPHER NORIEGA on 09/27/22 1332 Cetirizine HCl (Cetirizine HCl) 10 Mg Tablet, 10 MG PO DAILY, (Reported) Entered as Reported by: KRISTOPHER NORIEGA on 09/27/22 1332 Doxycycline Hyclate (Doxycycline Hyclate) 100 Mg Tablet, 100 MG PO BID Prescribed by: Makayla Pisano on 12/31/22 1411 Fluticasone Propionate (Flonase Allergy Relief) 50 Mcg/Actuation Hawley.susp, 1-2 SPRAY NSEACH HS, (Reported) Entered as Reported by: KRISTOPHER NORIEGA on 09/27/22 1332 Hydrochlorothiazide (Hydrochlorothiazide) 50 Mg Tablet, 50 MG PO DAILY, (Reported) Entered as Reported by: KRISTOPHER NORIEGA on 09/27/22 1332 Metformin HCl (Metformin HCl ER) 500 Mg Tab.er.24, 500 MG PO DAILY, (Reported) Entered as Reported by: KRISTOPHER NORIEGA on 09/27/22 1332 Metoprolol Succinate (Metoprolol Succinate) 25 Mg Tab.er.24h, 25 MG PO HS, (Reported) Entered as Reported by: SANTI BRAND on 09/26/22 180 Pramipexole Di-HCl (Pramipexole Dihydrochloride) 0.5 Mg Tablet, 0.5 MG PO BID, (Reported) Entered as Reported by: SANTI BRAND on 09/26/22 180 Tamsulosin HCl (Flomax) 0.4 Mg Cap, 0.4 MG PO HS, (Reported) Entered as Reported by: RIMA MILLER on 02/02/22 1527 Verapamil HCl (Verapamil ER) 180 Mg Tablet.er, 180 MG PO HS, (Reported) Entered as Reported by: KRISTOPHER NORIEGA on 12/03/18 1117 Review of Systems Review of Systems Constitutional: see HPI (MAKAYLA SEN APRN) Past Ybaxlvz-Qnugij-Odtynb Hx Immunizations Up To Date First/Initial COVID19 Vaccinat: 03/05/20 Second COVID19 Vaccination Jeyson: 03/25/20 Third COVID19 Vaccination Date: 2020 (MAKAYLA SEN APRN) Seasonal Allergies Seasonal Allergies: Yes (MAKAYLA SEN APRN) Past Medical History Surgery/Hospitalization HX: SX: L HIP PMH: TIA, STROKE, CAD, HTN, DIABETES II, [place], PROSTATE ISSUES, ARTHRITIS Surgeries: Yes (BACK-LUMBAR, R ANKLE, GANGLION CYST, LEFT HIP REPLACEMENT) Appendectomy Respiratory: Yes Pulmonary Embolism Currently Using CPAP: No Currently Using BIPAP: No Cardiac: Yes (UNKNOWN HEART ATTACK POSSIBLE 2-3 YEARS AGO WHEN CRACKED RIBS) Heart Attack, High Cholesterol, Hypertension Neurological: Yes (APPROX 2011) TIA Reproductive Disorders: No Genitourinary: Yes Bladder Infection, Kidney Stones Gastrointestinal: No Musculoskeletal: Yes Chronic Back Pain, Fractures Endocrine: Yes Diabetes, Non-Insulin dep Cancer: No Psychosocial: Yes Anxiety Integumentary: No Blood Disorders: No (MAKAYLA SEN APRN) Family Medical History No Pertinent Family Hx (MAKAYLA SEN APRN) Physical Exam Vital Signs Vital Signs - First Documented 12/31/22 12/31/22 12:49 14:22 Temp 36.1 Pulse 88 Resp 20 B/P (MAP) 128/76 (93) Pulse Ox 98 O2 Delivery Room Air (CHRISTIAN WALLIS MD) Vital Signs Capillary Refill : Less Than 3 Seconds (MAKAYLA SEN APRN) Height, Weight, BMI Height: 6'2.00" Weight: 264lbs. oz. 119.178660qz; 35.00 BMI Method:Stated General Appearance: WD/WN, no apparent distress HEENT: PERRL/EOMI, TMs normal Neck: non-tender, full range of motion, supple, normal inspection Cardiovascular: regular rate, rhythm Respiratory: lungs clear, normal breath sounds, no respiratory distress, no accessory muscle use Extremities: normal range of motion, normal inspection Psychiatric: alert, oriented x 3 Crainal Nerves: normal hearing, normal speech, PERRL, other (Cranial nerves II through XII intact as tested) Motor/Sensory: no motor deficit, no sensory deficit Skin: normal color, warm/dry (MAKAYLA SEN APRN) Procedures/Interventions Wound Location: Lower Extremities, Upper Extremities Other Wound Location Left dorsal hand and left anterior lower leg Wound's Depth, Shape: superficial Irrigated w/ Saline (ccs): 250 Wound Debrided: minimal Other Closure Supply: Steri Strip 1/4" Progress Skin tear to left dorsal hand, Steri-Strips placed. Small linear wound to left anterior lower leg, no area to suture, Steri-Strips placed, bandage placed over Steri-Strips (MAKAYLA SEN APRN) Progress/Results/Core Measures Results/Orders Blood Pressure Mean: 93 Progress Progress Note : Progress Note Patient seen and evaluated, resting comfortably in bed, no acute distress. Based on exam and symptoms, CT of the head and neck ordered as well as x-ray of left tib-fib. 1405 wounds cleaned and dressed. No area required sutures. Steri-Strips applied to left hand and left murphy. CT and x-ray reviewed. X-ray shows no acute bony abnormality. CT negative for acute intracranial abnormality, also negative for acute fracture of the C-spine. It does show mild sinusitis and a possible cyst or polyp in the right maxillary sinus. Advanced multilevel cervical spondylosis. It also shows slight enlargement of the right thyroid lobe. Results discussed with patient. Patient reports that he has been having rhiniti s and nasal congestion for the last week. Will go ahead and treat his sinusitis. Patient instructed to follow-up with primary regarding the possible cyst or polyp as well as the enlargement of his right thyroid lobe. Patient is stable for discharge. Patient provided discharge instructions and return precautions. (MAKAYLA SEN APRN) Diagnostic Imaging Diagonstic Imaging: Xray Plain Films/CT/US/NM/MRI: leg Comments [facility] [place], [place] NAME: ANTONIO WHEATLEY [facility] REC#: [id number] PT STATUS: REG ER : 1955 PHYSICIAN: MAKAYLA SEN APRN ADMIT DATE: 12/31/22/ER Draft Date of Exam:12/31/22 TIBIA/FIBULA, LEFT, 2 VIEWS INDICATION: Fall over bricks and back yard, pain TECHNIQUE: AP and lateral views of the left tibia and fibula CORRELATION STUDY: None FINDINGS: The tibia and fibula are intact. There is no evidence for acute fracture. Limited visualized portions of the knee and ankle are unremarkable. Asymmetric soft tissue prominence likely hematoma with a few foci of gas within the anterior, proximal 3rd aspect of the leg. No definitive foreign body. IMPRESSION: 1.Negative for acute bony abnormality of the leg. 2. Probable hematoma with a few foci of gas in the anterior proximal leg. No radiographic foreign body. Dictated on workstation # [id number] Dict: 12/31/22 1327 Trans: 12/31/22 1329 PATY [id number] Interpreted by: MONTANA MOLINA DO Electronically signed by: Diagonstic Imaging: CT Plain Films/CT/US/NM/MRI: c-spine, head Comments [facility]. [place], [place] NAME: ANTONIO WHEATLEY [facility] REC#: [id number] PT STATUS: REG ER : 1955 PHYSICIAN: MAKAYLA SEN APRN ADMIT DATE: 12/31/22/ER Draft Date of Exam:12/31/22 CT HEAD/CERVICAL SPINE WO PROCEDURE: CT head and CT cervical spine without contrast. TECHNIQUE: Multiple contiguous axial images were obtained through the brain and cervical spine without the use of intravenous contrast. Sagittal and coronal reformations through the cervical spine were then performed. Auto Exposure Controls were utilized during the CT exam to meet ALARA standards for radiation dose reduction. INDICATION: 67-year-old male, status post fall, hitting left forehead. CORRELATION STUDY: CT head 12/13/2020 FINDINGS: CT HEAD: Generalized age-related atrophic changes with prominence of ventricles and sulci. Scattered areas decreased attenuation likely chronic small vessel ischemic disease. No regional area of edema. No intracranial hemorrhage. Shallow left frontal scalp contusion. Underlying bony calvarium is intact. A few opacified inferior left mastoid air cells. Probable cyst or polyp right maxillary sinus. Mild mucosal thickening right and to lesser degree left sphenoid sinus as well as a few ethmoid air cells. Also mild mucosal thickening in the frontal sinuses. CT CERVICAL SPINE: Cervical spine is anatomic. Vertebral body heights maintained. Mild to moderate disc space narrowing C5-C6, C6-C7 and C7-T1. Mild endplate spurring results in mild osseous encroachment neural foramina at these levels. Mild asymmetric areas of hypertrophic facet arthropathy. Posterior elements otherwise intact. Odontoid intact. There is prominent calcification bilateral carotid bifurcations. A few mildly prominent but nonpathologic enlarged bilateral cervical lymph nodes. Slight asymmetric enlargement right thyroid lobe. IMPRESSION: CT HEAD: 1. Left frontal scalp hematoma. Negative for calvarial fracture or acute intracranial abnormality. 2. Mild sinusitis. CT CERVICAL SPINE: 1. Negative for acute fracture or traumatic subluxation. Advanced multilevel cervical spondylosis. Dictated on workstation # [id number] (MAKAYLA SEN APRN) Departure Impression Primary Impression: Head injury Qualified Codes: S09.90XA - Unspecified injury of head, initial encounter Additional Impressions: Maxillary sinus polyp Enlargement of thyroid Leg hematoma Qualified Codes: S80.12XA - Contusion of left lower leg, initial encounter Scalp hematoma Qualified Codes: S00.03XA - Contusion of scalp, initial encounter Sinusitis Qualified Codes: J01.90 - Acute sinusitis, unspecified Disposition: 01 HOME, SELF-CARE Condition: Stable Departure-Patient Inst. Decision time for Depature: 14:09 (MAKAYLA SEN APRN) Referrals: AMADOU ROGERS DO (PCP/Family) Primary Care Physician Patient Instructions: Head Injury Observation (DC) Add. Discharge Instructions: Complete full course of antibiotic as prescribed. Follow-up with primary care provider regarding the sinus polyp and enlargement of your thyroid. Return for severe headache, recurrent vomiting, abnormal behavior, difficulty doing normal activities, weakness on one side your body, or any other new, concerning, or worsening symptoms. All discharge instructions reviewed with patient and/or family. Voiced understanding. Scripts Doxycycline Hyclate (Doxycycline Hyclate) 100 Mg Tablet 100 MG PO BID for 7 Days, #14 TAB 0 Refills Prov: MAKAYLA SEN APRN 12/31/22 ATTENDING PHYSICIAN NOTE: I was physically present as attending physician in the emergency department during the care of this patient, but I was not directly involved in the decision making or delivery of care for this patient. (CHRISTIAN WALLIS MD) Copy Copies To 1: AMADOU ROGERS BRITTANY R APRN Dec 31, 2022 12:59 CHRISTIAN WALLIS MD Jan 03, 2023 16:41
--- NOTE | 2022-12-31 13:30 | Diagnostic Imaging Report ---
INDICATION: Fall over bricks and back yard, pain TECHNIQUE: AP and lateral views of the left tibia and fibula CORRELATION STUDY: None FINDINGS: The tibia and fibula are intact. There is no evidence for acute fracture. Limited visualized portions of the knee and ankle are unremarkable. Asymmetric soft tissue prominence likely hematoma with a few foci of gas within the anterior, proximal 3rd aspect of the leg. No definitive foreign body. IMPRESSION: 1.Negative for acute bony abnormality of the leg. 2. Probable hematoma with a few foci of gas in the anterior proximal leg. No radiographic foreign body. Dictated by: Dictated on workstation # [id number]
--- NOTE | 2022-12-31 13:35 | Diagnostic Imaging Report ---
PROCEDURE: CT head and CT cervical spine without contrast. TECHNIQUE: Multiple contiguous axial images were obtained through the brain and cervical spine without the use of intravenous contrast. Sagittal and coronal reformations through the cervical spine were then performed. Auto Exposure Controls were utilized during the CT exam to meet ALARA standards for radiation dose reduction. INDICATION: 67-year-old male, status post fall, hitting left forehead. CORRELATION STUDY: CT head 12/13/2020 FINDINGS: CT HEAD: Generalized age-related atrophic changes with prominence of ventricles and sulci. Scattered areas decreased attenuation likely chronic small vessel ischemic disease. No regional area of edema. No intracranial hemorrhage. Shallow left frontal scalp contusion. Underlying bony calvarium is intact. A few opacified inferior left mastoid air cells. Probable cyst or polyp right maxillary sinus. Mild mucosal thickening right and to lesser degree left sphenoid sinus as well as a few ethmoid air cells. Also mild mucosal thickening in the frontal sinuses. CT CERVICAL SPINE: Cervical spine is anatomic. Vertebral body heights maintained. Mild to moderate disc space narrowing C5-C6, C6-C7 and C7-T1. Mild endplate spurring results in mild osseous encroachment neural foramina at these levels. Mild asymmetric areas of hypertrophic facet arthropathy. Posterior elements otherwise intact. Odontoid intact. There is prominent calcification bilateral carotid bifurcations. A few mildly prominent but nonpathologic enlarged bilateral cervical lymph nodes. Slight asymmetric enlargement right thyroid lobe. IMPRESSION: CT HEAD: 1. Left frontal scalp hematoma. Negative for calvarial fracture or acute intracranial abnormality. 2. Mild sinusitis. CT CERVICAL SPINE: 1. Negative for acute fracture or traumatic subluxation. Advanced multilevel cervical spondylosis. Dictated by: Dictated on workstation # [id number]
[2022-12-31] MEDS ORDERED: DOXY100T2 PO (14:11)
[2022-12-31 14:22] VITALS: BP 101/65
== END 2022-12-31 14:25 | disposition home or self-care (01) ==
LOC: EDUNIT# 12:46 → ER 12:47
DX: S09.90XA Unspecified injury of head, initial encounter (principal); S81.812A Laceration without foreign body, left lower leg, initial encounter; S00.03XA Contusion of scalp, initial encounter; E04.9 Nontoxic goiter, unspecified; J32.9 Chronic sinusitis, unspecified; J33.8 Other polyp of sinus; Z88.0 Allergy status to penicillin; W01.198A Fall on same level from slipping, tripping and stumbling with subsequent striking against other object, initial encounter; Y93.01 Activity, walking, marching and hiking; Y92.096 Garden or yard of other non-institutional residence as the place of occurrence of the external cause
CPT/HCPCS: 70450; 72125; 73590